=== PATIENT | female | born 1945 | race Caucasian/White ===

== ENCOUNTER 2024-05-17 14:04 | Outpatient (CLI) | payer MEDICARE, SELFPAY ==
--- OUTSIDE RECORDS SUMMARY | 2024-05-17 14:25 | XMS_ITS | Continuity of Care Document ---
Author Organization [facility] Address [address] [place] [address] Phone Care Team Providers Care Vacuum Tank Tender Name Role Phone Dino Hudson MD Unavailable Unavailable Allergies, Adverse Reactions, Alerts Substance Reaction Status Criticality Sulfa (Sulfonamide Antibiotics) Unknown(not reported) Active No Information Penicillins Unknown(not reported) Active No Inf ormation Medications Medication Instructions Dosage Effective Dates (start - stop) Status Comments famotidine 20 mg tablet - Ac tive amlodipine 10 mg tablet - Ac tive lisinopril 40 mg tablet - Ac tive atorvastatin 40 mg tablet - Active clopidogrel 75 mg tablet - A ctive sertraline 100 mg tablet - A ctive carvedilol 12.5 mg tablet - Active Procedures Procedure Date RADEX ELBW COMPL MINIMUM 3 VIEWS 2018 OFFICE/OUTPATIENT VISIT NEW Advance Directives Directive Yes / No Effective Date File Name Other Directive Yes N/A N/A WARNING:The information contained in this section is historical and is provided for information only and does not constitute a legal document or any assurance that the information is still accurate. Please verify the information with the stroud of the legal document before using it for clinical purposes. Encounters Encounter Description Practice Location Reason(s) For Visit Diagnoses Date Provider Providers Copied on Encounter OFFICE/OUTPAT IENT VISIT NEW [facility] , [address], [place], [address], [place] tel:[phone] [facility] Body mass index (BMI) 27.0-27.9, adultOlecranon bursitis of right elbow Dec-201 [address], [place], [place], [id number] . tel: [phone] Referring Provider: Adrian Garcia, [address], [place], [address] . tel:[phone] Family History Family Member Type Diagnosis Age At Onset Father Problem (finding) Mother Problem (finding) Son Problem (finding) Alive and well Immunizations Vaccine Date Status Comments Pneumo (2 yrs or older)(PPV) administered Source: Other Provider Payers Payer name Insurance type Covered constitution party ID Authorharish armenta(s) AARP Medicare Complete HMO-POS [id number] Social History Type Description Quantity Date Captured Comments Alcohol Use Details beer Caffeine Use Details Unknown Tobacco Use Status Current non-smoker 19 Smoking Status Never smoker Non-Smoking Tobacco Use Details : No Details Available : No Details Available Sex Female Vital Signs Date / Time: Height Weight BMI Pulse Rate Blood Pressure Temperature Respiratory Rate Body Surface Area Head Circumference Head Circ. Percentile Wt./Franco. Percentile BMI percentile Pulse Ox Inhaled Ox 4:13 PM 65.00 in 74.843 kg (165.00 lbs) 27.4 6 kg/m eter (2) 136/82 mm[Hg] Chief Complaint And Reason For Visit No Information Reason For Referral Reason For Referral No Information Plan Of Treatment Date Type Action Status Goal Lifestyle education regardin g diet completed Referral Ordered: RADEX ELBW COMPL MINIMUM 3 VIEWS RT ordered History Of Present Illness Encounter Date Complaint History Of Prese nt Illness No Information Functional Status Date Functional Assessmen t No Information Instructions Date Instruction Additional Infor mation Fall risk home exerc ise program handout provided Home safety checklis t for fall hazards provided Lifestyle education regarding di et Related to Body mass index (BMI) 27.0-27.9, adult Rest, ice and elevate. Related t o Olecranon bursitis of right elbow Discussed treatment options Rela bouchra to Olecranon bursitis of right elbow Call for increase in pain Relate d to Olecranon bursitis of right elbow Assessments Type Assessment Date assessment Body mass index (BMI) 27.0-27.9, adult assessment Olecranon bursitis of right elbo w Patient Care Teams Name Effective Dates (start - stop) Status Members No Information
--- OUTSIDE RECORDS SUMMARY | 2024-05-17 14:25 | XMS_ITS | Encounter Summary ---
Author Organization [facility] Address [address] [place] [address] Care Team Providers Care Customer Success Advocate Name Role Phone Adrian Martin MD Primary Care Provider [phone] Reason for Referral * Radiology Services (Routine) - Closed Specialty Diagnoses / Procedures Referred By Contac t Referred To Contact Diagnoses Neutropenia, unspecified type Procedures US ABDOMEN COMPLETE Alberto Gordon MD [address] [place] [address] Phone: tel: fax: [place] [address] Referral ID Status Reason Start Date Expiration Date V isits Requested Visits Authorized [id number] Closed STL CTS 05/17/2024 06/17/2025 1 1 STIGATOR UTILITY BILL COMPLAINTS Encounter Details Date Type Department Care Team (Late st Contact Info) Description 05/17/2024 1:00 PM INVESTIGATOR UTILITY BILL COMPLAINTS Office Visit [facility] [address] [facility] [address] [place] [address] Alberto Gordon MD [address] [place] [address] Chronic anemia (Primary Dx); Neutropenia, unspecified type Social History Tobacco Use Types Packs/Day Years Used Date Smoking Tobacco: Never Smokeless Tobacco: Never Alcohol Use Standard Drinks/Week Comments Not Currently 0 (1 standard drink = 0.6 oz pur e alcohol) Occasionally Comments Unknown Sex and Gender Information Value Date Recorded Sex Assigned at Not on file Legal Sex Female 1:46 PM CDT Gender Identity Not on file Sexual Orientation Not on file documented as of this encounter Last Filed Vital Signs Vital Sign Reading Time Taken Comments Blood Pressure 151/88 05/17/2024 1:25 PM INVESTIGATOR UTILITY BILL COMPLAINTS Pulse 81 05/17/2024 1:18 PM INVESTIGATOR UTILITY BILL COMPLAINTS Temperature 36.6 ??C (97.8 ??F) 05/17/2024 1:18 PM CS T Respiratory Rate 14 05/17/2024 1:18 PM INVESTIGATOR UTILITY BILL COMPLAINTS Oxygen Saturation 93% 05/17/2024 1:18 PM INVESTIGATOR UTILITY BILL COMPLAINTS Inhaled Oxygen Concentration - - Weight 58 kg (127 lb 12.8 oz) 05/17/2024 1:18 PM INVESTIGATOR UTILITY BILL COMPLAINTS Height 162.6 cm (5' 4 ) 05/17/2024 1:18 PM INVESTIGATOR UTILITY BILL COMPLAINTS Body Mass Index 21.94 05/17/2024 1:18 PM INVESTIGATOR UTILITY BILL COMPLAINTS documented in this encounter Plan of Treatment Upcoming Encounters Date Type Department Care Team (Late st Contact Info) Description 06/09/2024 4:30 PM INVESTIGATOR UTILITY BILL COMPLAINTS Telephone Check Up [facility] - [place] [address] [place] [address] [facility] [address] [place] [phone] Alberto Gordon MD [address] [facility] [address] [place] [address] Scheduled Orders Name Type Priority Associated Diagnoses Orde r Schedule CBC WITH DIFFERENTIAL Lab Stat Chronic anemia Expected: 05/17/2024, Expires: 05/17/2025 COMPREHENSIVE METABOLIC PANEL Lab Stat Chronic anemia Expected: 05/17/2024, Expires: 05/17/2025 FERRITIN Lab Routine Chronic anemia Expected: 05/17/2024, Expires: 05/17/2025 FLOW CYTOMETRY PANEL Lab Routine Neutropenia, unspecified type Expected: 05/17/2024, Expires: 05/17/2025 IRON, TIBC, AND PERCENT SATURATION Lab Routine Chronic anemia Expected: 05/17/2024, Expires: 05/17/2025 LACTATE DEHYDROGENASE Lab Routine Chronic anemia Expected: 05/17/2024, Expires: 05/17/2025 METHYLMALONIC ACID Lab Routine Chronic anemia Expected: 05/17/2024, Expires: 05/17/2025 TRANSFERRIN RECEPTOR TFR SOLUBLE Lab Routine Chronic anemia Expected: 05/17/2024, Expires: 05/17/2025 VITAMIN B12 AND FOLATE Lab Routine Chronic anemia Expected: 05/17/2024, Expires: 05/17/2025 US ABDOMEN COMPLETE Imaging Routine Neutropenia, unspecified type 1 Occurrences starting 05/17/2024 until 05/17/2025 documented as of this encounter Visit Diagnoses Diagnosis Chronic anemia- Primary Anemia, unspecified Neutropenia, unspecified type documented in this encounter Care Teams Customer Success Advocate Relationship Specialty Start Date End Date Adrian Martin MD [address] [place] [address] PCP - General Internal Medicine 08/05/18 documented as of this encounter
--- OUTSIDE RECORDS SUMMARY | 2024-05-17 14:25 | XMS_ITS | CONTINUITY OF CARE DOCUMENT ---
Author Name keon herbert Address Unknown Organization [facility] Address [address] [facility] [facility] [address] [place] [address] Phone [phone] Care Team Providers Care Teletray Operator Name Role Phone Jb Butts MD Unavailable Jb Butts MD Unavailable INSURANCE PROVIDERS Payer name Policy type / Coverage type [place] red constitution party ID [id number] MEDICARE COMPLETE HMO Other [id number]
--- OUTSIDE RECORDS SUMMARY | 2024-05-17 14:25 | XMS_ITS | Clinical Summary ---
Author Organization [facility] [address] [facility] Address [address] [facility] [place] [address] Care Team Providers Care Network Cabler Name Role Phone Adrian aMrtin MD Primary Care Provider [phone] Allergies Active Allergy Reactions Criticality Noted Date Comments Penicillins Itching,Rash,Swelling Low 10/23/2016 Sulfa (Sulfonamide Antibiotics) Itching,Swelling Low 10/23/2016 Medications amLODIPine (NORVASC) 10 mg tablet Take 1 Tablet by mouth daily. 04/25/2024 Active atorvastatin (LIPITOR) 40 mg tablet Take 1 Tablet by mouth daily. 04/25/2024 Active carvediloL (COREG) 12.5 mg tablet Take 1 Tablet by mouth 2 times daily. 05/02/2024 Active folic acid (FOLVITE) 1 mg tablet Take 1 Tablet by mouth daily. 03/15/2024 Active b complex-vitamin c-folic acid (DIALYVITE) 100-1 mg Tablet Take 1 Tablet by mouth daily. Active losartan (COZAAR) 100 mg tablet Take 1 Tablet by mouth daily. 03/15/2024 Active aspirin (ECOTRIN EC) 81 mg Tablet, Delayed Release (E.C.) Take 81 mg by mouth daily. Active traZODone (DESYREL) 150 mg tablet Take 150 mg by mouth daily at bedtime. 03/15/2024 Active sertraline (ZOLOFT) 100 mg tablet Take 1 Tablet by mouth daily. 04/25/2024 Active CALCIUM CARBONATE-VITAMI N D3 ORAL Take by mouth. Active MULTIVITAMIN ORAL Take by mouth. Active Active Problems No known active problems Encounters Date Type Department Care Team Description 05/17/2024 1:00 PM JUICE STANDARDIZER Office Visit [facility] and H[facility] - [place] [address] [place] [address] Alberto Gordon MD Chronic anemia (Primary Dx); Neutropenia, unspecified type from Last 3 Months Family History Medical History Relation Name Comments Parkinson's Disease Brother No Known Problems Child Diabetes Father Heart Disease Father No Known Problems Mother Relation Name Status Comments Brother Alive Child Alive Father Mother Social History Tobacco Use Types Packs/Day Years [...] on file Sexual Orientation Not on file Last Filed Vital Signs Vital Sign Reading Time Taken Comments Blood Pressure 151/88 05/17/2024 1:25 PM JUICE STANDARDIZER Pulse 81 05/17/2024 1:18 PM JUICE STANDARDIZER Temperature 36.6 ??C (97.8 ??F) 05/17/2024 1:18 PM CS T Respiratory Rate 14 05/17/2024 1:18 PM JUICE STANDARDIZER Oxygen Saturation 93% 05/17/2024 1:18 PM JUICE STANDARDIZER Inhaled Oxygen Concentration - - Weight 58 kg (127 lb 12.8 oz) 05/17/2024 1:18 PM JUICE STANDARDIZER Height 162.6 cm (5' 4 ) 05/17/2024 1:18 PM JUICE STANDARDIZER Body Mass Index 21.94 05/17/2024 1:18 PM JUICE STANDARDIZER Plan of Treatment Upcoming Encounters Date Type Department Care Team (Late st Contact Info) Description 06/09/2024 4:30 PM JUICE STANDARDIZER Telephone Check Up [facility] and [facility]ology - [place] [address] [place] [address] Alberto Gordon MD [address] [facility] [address] [place] [address] Health Maintenance Due Date Last Done Comments DTAP/TDAP/TD VACCINES (1 - Tdap) 1965 PNEUMOCOCCAL VACCINE 65+ YEARS (1 of 2 - PCV) 03/19/19 66 ZOSTER VACCINE (1 of 2) 1996 RSV VACCINE (60+ or ) (1 - 1-dose 75+ series) 2021 INFLUENZA VACCINE (#1) 2023 01/11/2018 [place] Prev entative Visit/Annual Wellness Visit 04/13/2024 OSTEOPOROSIS SCREENING Completed 07/25/2017 Insurance [facility] [address] [address] [facility] [address] [address] Care Teams Network Cabler Relationship Specialty Start Date End Date Adrian Martin MD [address] [place] [address] PCP - General Internal Medicine 08/05/18
[2024-05-17 14:33] LABS: Basophils Percent Auto 0.3 % (0.2-1.2); Eosinophils Absolute Auto 0.1 K/mm3 (0-0.3); Eosinophils Percent Auto 1.4 % (0-4.4); Hematocrit 34.8 % (37.0-47.0); Hemoglobin 11.3 g/dL (12.0-15.0); Immature Granulocyte Absolute 0.02 K/mm3 (0.00-0.031); Immature Granulocyte Percent A 0.6 % (0-0.5); Lymphocytes Absolute Auto 0.69 K/mm3 (0.9-3.2); Lymphocytes Percent Auto 19.8 % (18.3-44.2); Mean Corpuscular HGB Conc 32.5 g/dl (32-36); Mean Corpuscular Hemoglobin 28.8 pg (26-34); Mean Corpuscular Volume 88.8 fl (80-100); Mean Platelet Volume 9.8 fl (7.4-10.4); Monocytes Absolute Auto 0.2 K/mm3 (0.1-0.6); Monocytes Percent Auto 5.4 % (2.6-8.5); Neutrophils Absolute Auto 2.5 K/mm3 (1.3-6.7); Neutrophils Percent Auto 72.5 % (45.5-73.1); Platelet Count Result 108 k/mm3 (150-375); Red Blood Count 3.92 M/mm3 (4.2-5.4); Red Cell Distribution Width 16.2 % (11.5-14.5); White Blood Count 3.5 K/mm3 (4.5-10.0)
[2024-05-17 16:51] LABS: Alanine Aminotransferase 21 U/L (6-35); Albumin Level 3.8 g/dL (3.5-5.1); Alkaline Phosphatase 101 U/L (38-126); Anion Gap 9 mmol/L (4-12); Aspartate Amino Transferase 50 U/L (14-36); Bilirubin,Total 0.8 mg/dL (0.2-1.3); Blood Urea Nitrogen 15 mg/dL (7-17); Calcium 9.2 mg/dL (8.4-10.2); Carbon Dioxide 25 mmol/L (22-30); Chloride 103 mmol/L (98-107); Estimated Glomerular Filt Rate > 60; Glucose 101 mg/dL (65-110); Lactate Dehydrogenase 136 U/L (120-246); Potassium 4.6 mmol/L (3.4-5.0); Sodium 137 mmol/L (137-145)
[2024-05-17 17:19] LABS: Iron 63 ug/dL (37-170)
[2024-05-17 17:33] LABS: Percent Iron Saturation 21 % (20-50)
[2024-05-17 17:56] LABS: Folic Acid > 20.0 ng/mL (2.76->20)
[2024-05-20 12:17] LABS: Methylmalonic Acid 215 nmol/L (69-390)
== END 2024-05-17 14:05 | disposition home or self-care (01) ==
PROVIDERS: PCP Internal Medicine; Visit Provider Internal Medicine Hematology & Oncology
DX: D64.9 Anemia, unspecified (principal); D70.9 Neutropenia, unspecified
CPT/HCPCS: 36415; 80053; 82607; 82728; 82746; 83540; 83550; 83615; 83921; 84238; 85025; 88184

== ENCOUNTER 2024-06-22 09:04 | Outpatient (CLI) | payer MEDICARE, SELFPAY ==
--- NOTE | ~2024-06-22 | US_ITS ---
EXAM: ABDOMEN ULTRASOUND HISTORY: NEUTROPENIA COMPARISON: None FINDINGS: LIVER: The liver is unremarkable in echogenicity and size measuring 18cm in longitudinal dimension. The portal vein is patent, demonstrating hepatopedal flow. GALLBLADDER: Surgically absent. BILE DUCTS: Common bile duct measures 4.3mm. PANCREAS: Limited evaluation of the pancreas secondary to overlying bowel gas SPLEEN: The spleen is unremarkable in echogenicity and markedly increased in size measuring 19 cm in longitudinal dimension. RIGHT KIDNEY: 9.7 cm. In length. No hydronephrosis or bulky renal calculi. LEFT KIDNEY: 10.1cm in length. No hydronephrosis or renal calculi. VASCULATURE : The abdominal aorta is nonaneurysmal. The IVC is patent. OTHER: Trace intra-abdominal ascites, as well as small bilateral pleural effusions IMPRESSION: Evaluation of the pancreas is limited by overlying bowel gas. Significant enlargement of the spleen measuring 19 cm in longitudinal dimension. Trace ascites with small bilateral pleural effusions. Reviewed, dictated and finalized at location A. IMPRESSION: Evaluation of the pancreas is limited by overlying bowel gas. Significant enlargement of the spleen measuring 19 cm in longitudinal dimension . Trace ascites with small bilateral pleural effusions.
--- OUTSIDE RECORDS SUMMARY | 2024-06-22 09:43 | XMS_ITS | Patient Health Record ---
Author Organization [facility] Address [address] [facility] [address] [facility] [address] [place] [address] Care Team Providers Care Blower Insulator Name Role Phone Khadar Larson MD Primary Care Provider Unavailab le Allergies Allergen (clinical drug ingredient) Drug/Non Drug Allergy documented on EMR Reaction Allergy Type Onset Date Status Substance with sulfonamide structure and antibacterial mechanism of action (substance) Sulfa Antibiotics Unknown Drug Allergy Active Penicillin Unknown Drug Allergy Active Reason For Referral No Information Medications Medication SIG (Take, Route, Frequency, Duration) Notes Start Date End Date Status Losartan Potassium A ctive Carvedilol Active Sertraline HCl Activ e Meloxicam Active amLODIPine Besylate Active OTC/Vitamins Folic Acid, MVI, ASA, Calcium, Mg, Zinc, Docusate Sodium, Melatonin, Prevagen Active Atorvastatin Calcium Active traZODone HCl Active Social History Tobacco Use: Social History Observation Description Date Details (start date - stop date) Former Smoker NA - NA Tobacco Use/Smoking Question Answer Notes Are you a former smoker Section Notes: , lives alone, one so n, retired. Problems Problem Type SNOMED Code ICD Code Onset Dates Problem Status W/U Status Risk Notes Problem 223314271 History of colon polyps (Z86.010) Active confirmed She has had a colonoscopy with polyp removal in the last year by an outside provier with repeat recommended in 5 years. Report not available for review but will obtain. 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 She has been experiencing alternating constipation and loose stools for several years in which she can have up to 4 bowel movements a day or go 2-3 days without a bowel movement. She states that she has had to disimpact her stool before in the distant past. She does use Docusate sodium tablets once daily and has plans to start Metamucil. She was seen at [facility] in 09/2021 for dehydration and RLQ pain which her son states labs and CT scan of abdomen and pelvis were unremarkable however these reports are not available for review today but will obtain. Her son also mentions she has had a colonoscopy with polyp removal in the last year by an outside provier with repeat recommended in 5 years. She denies hematochezia, melena, weight loss or other alarm features and her physical exam was negative today. Differentials include IBS, food intolerance, medication intolerance, other functional bowel disorder, and others. Plan Of Treatment No Information Insurance Providers Payer Name Payer Address Payer Phone Subscriber Number Group Number Insured Name Patient Relationship to Insured Coverage Start Date Coverage End Date [employer] Medicare Gold Advantage [address] [place] [phone] [id number] Lauren Cummings Self - patient is the insured Medical (General) History Medical History History ICD Code Colon polyp Liver Disease Stroke Depression Hypertension Coronary Artery Disease/Stents Hyperlipidemia Surgical History Surgery Date(Month/Year) Colonoscopy (Outside Provider) 2021 Left Knee Replacement Stent Placement Hospitalization History Reason Date(Month/Year) Dehydration, RLQ pain: [facility], [place] 09/2021
--- OUTSIDE RECORDS SUMMARY | 2024-06-22 09:43 | XMS_ITS | Data Portability ---
Author Organization [facility], Main Office Address [address] [place] [address] Assessment No assessment recorded. Plan of Treatment Reminders Order Date Submit Date Provider Last Modified By Organization Details Last Modified Time Details Appointments Any 15 2024 03:00P M Roberto Gotti MD Not available Not available Not available Lab urinalysi s complete, reflex culture 2023 024 [facility] (Lab), [address] [place], [address], 10/27/2023 22:09:45 unlisted lab - CBC study 2023 024 [email or web address] [facility] (Lab), [address] [place], [address], 11/24/2023 08:38:31 CBC w/ auto diff 2023 024 [facility] (Lab), [address] [place], [address], 08/12/2023 20:19:03 CMP, serum or plasma 2023 024 [facility] (Lab), [address] [place], [address], 08/12/2023 21:52:10 urinalysi s, complete 2023 024 [facility] (Lab), [address] [place], [address], 08/12/2023 23:17:40 TSH, serum or plasma 2023 024 [facility] (Lab), [address] [place], [address], 08/12/2023 22:18:06 T3, free, serum or plasma 2023 024 [facility] (Lab), [address] [place], [address], 08/12/2023 22:17:00 T4, free, serum 2023 024 [facility] (Lab), [address] [place], [address], 08/12/2023 22:17:02 Referral gastroent erologist referral 2023 024 amena Duke MD, [address] [facility], [facility], [place], [address], 11/24/2023 08:38:42 Procedures colonosco py procedure (PROC) 2023 024 amena Duke MD, [address], [facility], [place], [address], 09/16/2023 08:11:48 upper endoscopy procedure (EGD) (PROC) 2023 024 amena Duke MD, [address], [facility], [place], [address], 09/30/2023 08:27:16 Surgeries None recorded. Imaging CT, abdomen + pelvis, w/wo contrast 2023 [email or web address] [place] [address] ([facility]), [address] [place], [address], 09/16/2023 09:52:51 Medication Orders ondansetr on 4 mg disintegr ating tablet 2023 024 [email or web address] [facility]/Pharmacy #[id number], [address], [place], [address], 05/20/2024 12:32:04 pantopraz ole 40 mg tablet,de layed release 2023 024 [email or web address] [facility]/Pharmacy #[id number], [address], [place], [address], 09/08/2023 09:28:07 gabapenti n 100 mg capsule 2023 024 KARTHIK [facility]/Pharmacy #[id number], [address], [place], [address], 04/20/2023 16:01:50 Patient TargetsNo targets recorded. Patient InstructionsNo instructions recorded. Reason for Referral Medical Engineer Referral for Abdominal pain Referring Physician: Roberto Gotti, Internal Medicine, Encounter Date: 10/27/2023 Results Created Date Observation Date Name Description Value Unit Range Abnormal Flag Note LastModifiedBy Organization Detail LastModifiedTime 03/31/2003/31/2023 COMPR EHENS DIMPLE METAB OLIC PANEL sodium 136 mmol/ L 137-14 5 low Not Available [facility] (Lab) [address] [place], [address], 03/31/2023 20:44:53 03/31/20 23 03/31/2023 COMPR EHENS DIMPLE METAB OLIC PANEL potassium 4.8 mmol/ L 3.5-5. 1 Not Available [facility] (Lab) [address] [place], [address], 03/31/2023 20:44:53 03/31/20 23 03/31/2023 COMPR EHENS DIMPLE METAB OLIC PANEL chloride 101 mmol/ L 98-107 Not Available [facility] (Lab) [address] [place], [address], 03/31/2023 20:44:53 03/31/20 23 03/31/2023 COMPR EHENS DIMPLE METAB OLIC PANEL carbon dioxide 29 mmol/ L 22-30 Not Available [facility] (Lab) [address] [place], [address], 03/31/2023 20:44:53 03/31/20 23 03/31/2023 COMPR EHENS DIMPLE METAB OLIC PANEL anion gap 10.8 mmol/ L 14-22 low Not Available [facility] (Lab) [address] [place], [address], 03/31/2023 20:44:53 03/31/20 23 03/31/2023 COMPR EHENS DIMPLE METAB OLIC PANEL glucose 97 mg/dL 70-99 Not Available [facility] (Lab) [address] [place], [address], 03/31/2023 20:44:53 03/31/20 23 03/31/2023 COMPR EHENS DIMPLE METAB OLIC PANEL BUN 30 mg/dL 8-19 high Not Available [facility] (Lab) [address] [place], [address], 03/31/2023 20:44:53 03/31/20 23 03/31/2023 COMPR EHENS DIMPLE METAB OLIC PANEL creatinine 0.65 mg/dL 0.66-1 .25 low Not Available [facility] (Lab) [address] [place], [address], 03/31/2023 20:44:53 03/31/20 23 03/31/2023 COMPR EHENS DIMPLE METAB OLIC PANEL GFR >60 Refer ence Range : [facility] GFR Healt hy Adult : >60 mL/mi n/1.7 3 m2 Chron ic Kidne y Disea se: 15-60 mL/mi n/1.7 3 m2 Kidne y Failu re: <15/m L/min /1.73 m2 www.n iddk. nih.g ov The MDRD study equat ion has not been valid ated in child julee <18 years of age; pregn ant women ; the elder ly >85 years of age; or in some racia l or ethni c subgr oups, such as Hispa nics. Outsi de the valid ated chiquita eters , estim ated GFR is less accur ate, requi ring clini alisha judgm ent on a case- by-ca se basis . Clini alisha inter preta tion for other races and ages must be made by the clini simran. The MDRD study equat ion has not been valid ated for the evalu ation of serum creat inine relat ed to nutri carl l statu s or medic ation usage . For perso ns <18 years of age, a pedia tric GFR calcu lator is avail able on the [facility] websi te: https ://itzel [place].o rg/pr ofess ional s/kdo qi/gf r_cal culat or Not Available [facility] (Lab) [address] [place], [address], 03/31/2023 20:44:53 03/31/20 23 03/31/2023 COMPR EHENS DIMPLE METAB OLIC PANEL alkaline phosphatase 59 U/L 38-126 Not Available [facility] (Lab) [address] [place], [address], 03/31/2023 20:44:53 03/31/20 23 03/31/2023 COMPR EHENS DIMPLE METAB OLIC PANEL alanine aminotransfe rase 38 U/L 0-35 high Not Available [facility] (Lab) [address] [place], [address], 03/31/2023 20:44:53 03/31/20 23 03/31/2023 COMPR EHENS DIMPLE METAB OLIC PANEL aspartate aminotransfe rase 47 U/L 15-37 high Not Available [facility] (Lab) [address] [place], [address], 03/31/2023 20:44:53 03/31/20 23 03/31/2023 COMPR EHENS DIMPLE METAB OLIC PANEL bilirubin, total 0.50 mg/dL 0.20-1 .30 Not Available [facility] (Lab) [address] [facility] [place], [address], 03/31/2023 20:44:53 03/31/20 23 03/31/2023 COMPR EHENS DIMPLE METAB OLIC PANEL calcium 9.3 mg/dL 8.4-10 .2 Not Available [facility] (Lab) [address] [place], [address], 03/31/2023 20:44:53 03/31/20 23 03/31/2023 COMPR EHENS DIMPLE METAB OLIC PANEL total protein 8.0 g/dL 6.3-8. 2 Not Available [facility] (Lab) [address] [place], [address], 03/31/2023 20:44:53 03/31/20 23 03/31/2023 COMPR EHENS DIMPLE METAB OLIC PANEL albumin 4.7 g/dL 3.0-4. 4 high Not Available [facility] (Lab) [address] [place], [address], 03/31/2023 20:44:53 03/31/20 23 03/31/2023 COMPR EHENS DIMPLE METAB OLIC PANEL globulin 3.3 g/dL 2.6-4. 2 Not Available [facility] (Lab) [address] [place], [address], 03/31/2023 20:44:53 03/31/20 23 03/31/2023 COMPR EHENS DIMPLE METAB OLIC PANEL A/G ratio 1.4 ratio 1.0-2. 0 Not Available [facility] (Lab) [address] [place], [address], 03/31/2023 20:44:53 03/31/20 23 03/31/2023 TSH thyroid-stim ulating hormone 1.700 uIU/m L 0.465- 4.680 Not Available [facility] (Lab) [address] [place], [address], 03/31/2023 21:03:32 03/31/20 23 04/01/2023 T4 FREE free T4 1.11 NG/dL 0.78-2 .19 Not Available [facility] (Lab) [address] [place], [address], 04/02/2023 00:49:36 03/31/20 23 04/01/2023 T3 FREE free T3 3.9 pg/mL 2.77-5 .27 Not Available [facility] (Lab) [address] [place], [address], 04/02/2023 00:49:39 08/12/19 24 08/12/2023 URINA LYSIS COMPL ETE, IRIS color DARK-Y ELLOW Not Available [facility] (Lab) [address] [place], [address], 08/12/2023 20:09:32 08/12/19 24 08/12/2023 URINA LYSIS COMPL ETE, IRIS appear EXTRA TURBID abnormal Not Available [facility] (Lab) [address] [place], [address], 08/12/2023 20:09:32 08/12/19 24 08/12/2023 URINA LYSIS COMPL ETE, IRIS specific gravity 1.019 1.001- 1.030 Not Available [facility] (Lab) [address] [place], [address], 08/12/2023 20:09:32 08/12/19 24 08/12/2023 URINA LYSIS COMPL ETE, IRIS pH 5.5 pH_un its 5.0-9. 0 Not Available [facility] (Lab) [address] [place], [address], 08/12/2023 20:09:32 08/12/19 24 08/12/2023 URINA LYSIS COMPL ETE, IRIS leukocytes 250 robel/u L negati ve- abnormal Not Available [facility] (Lab) [address] [place], [address], 08/12/2023 20:09:32 08/12/19 24 08/12/2023 URINA LYSIS COMPL ETE, IRIS nitrite 2+ negati ve- abnormal Not Available [facility] (Lab) [address] [place], [address], 08/12/2023 20:09:32 08/12/19 24 08/12/2023 URINA LYSIS COMPL ETE, IRIS protein 50 mg/dL negati ve- abnormal Not Available [facility] (Lab) [address] [place], [address], 08/12/2023 20:09:32 08/12/19 24 08/12/2023 URINA LYSIS COMPL ETE, IRIS glucose NORMAL mg/dL normal - Not Available [facility] (Lab) [address] [place], [address], 08/12/2023 20:09:32 08/12/19 24 08/12/2023 URINA LYSIS COMPL ETE, IRIS ketones NEGATI VE mg/dL negati ve- Not Available [facility] (Lab) [address] [place], [address], 08/12/2023 20:09:32 08/12/19 24 08/12/2023 URINA LYSIS COMPL ETE, IRIS urobilinogen NORMAL mg/dL normal - Not Available [facility] (Lab) [address] [place], [address], 08/12/2023 20:09:32 08/12/19 24 08/12/2023 URINA LYSIS COMPL ETE, IRIS bilirubin NEGATI VE mg/dL negati ve- Not Available [facility] (Lab) [address] [place], [address], 08/12/2023 20:09:32 08/12/19 24 08/12/2023 URINA LYSIS COMPL ETE, IRIS blood 0.1 mg/dL negati ve- abnormal Not Available [facility] (Lab) [address] [place], [address], 08/12/2023 20:09:32 08/12/19 24 08/12/2023 URINA LYSIS COMPL ETE, IRIS color DARK-Y ELLOW Not Available [facility] (Lab) [address] [place], [address], 08/12/2023 20:10:14 08/12/19 24 08/12/2023 URINA LYSIS COMPL ETE, IRIS appear EXTRA TURBID abnormal Not Available [facility] (Lab) [address] [place], [address], 08/12/2023 20:10:14 08/12/19 24 08/12/2023 URINA LYSIS COMPL ETE, IRIS specific gravity 1.019 1.001- 1.030 Not Available [facility] (Lab) [address] [place], [address], 08/12/2023 20:10:14 08/12/19 24 08/12/2023 URINA LYSIS COMPL ETE, IRIS pH 5.5 pH_un its 5.0-9. 0 Not Available [facility] (Lab) [address] [place], [address], 08/12/2023 20:10:14 08/12/19 24 08/12/2023 URINA LYSIS COMPL ETE, IRIS leukocytes 250 robel/u L negati ve- abnormal Not Available [facility] (Lab) [address] [place], [address], 08/12/2023 20:10:14 08/12/19 24 08/12/2023 URINA LYSIS COMPL ETE, IRIS nitrite 2+ negati ve- abnormal Not Available [facility] (Lab) [address] [place], [address], 08/12/2023 20:10:14 08/12/19 24 08/12/2023 URINA LYSIS COMPL ETE, IRIS protein 50 mg/dL negati ve- abnormal Not Available [facility] (Lab) [address] [place], [address], 08/12/2023 20:10:14 08/12/19 24 08/12/2023 URINA LYSIS COMPL ETE, IRIS glucose NORMAL mg/dL normal - Not Available [facility] (Lab) [address] [place], [address], 08/12/2023 20:10:14 08/12/19 24 08/12/2023 URINA LYSIS COMPL ETE, IRIS ketones NEGATI VE mg/dL negati ve- Not Available [facility] (Lab) [address] [place], [address], 08/12/2023 20:10:14 08/12/19 24 08/12/2023 URINA LYSIS COMPL ETE, IRIS urobilinogen NORMAL mg/dL normal - Not Available [facility] (Lab) [address] [place], [address], 08/12/2023 20:10:14 08/12/19 24 08/12/2023 URINA LYSIS COMPL ETE, IRIS bilirubin NEGATI VE mg/dL negati ve- Not Available [facility] (Lab) [address] [place], [address], 08/12/2023 20:10:14 08/12/19 24 08/12/2023 URINA LYSIS COMPL ETE, IRIS blood 0.1 mg/dL negati ve- abnormal Not Available [facility] (Lab) [address] [place], [address], 08/12/2023 20:10:14 08/12/19 24 08/12/2023 URINA LYSIS COMPL ETE, IRIS white blood cells 21-40 /i??h pfi?? 0-8 abnormal Not Available [facility] (Lab) [address] [place], [address], 08/12/2023 20:10:14 08/12/19 24 08/12/2023 URINA LYSIS COMPL ETE, IRIS red blood cells NONE /i??h pfi?? 0-4 Not Available [facility] (Lab) [address] [place], [address], 08/12/2023 20:10:14 08/12/19 24 08/12/2023 URINA LYSIS COMPL ETE, IRIS bacteria MODERA TE abnormal Not Available [facility] (Lab) [address] [facility] [place], [address], 08/12/2023 20:10:14 08/12/19 24 08/12/2023 URINA LYSIS COMPL ETE, IRIS mucous OCCASI ONAL /i??l pfi?? abnormal Not Available [facility] (Lab) [address] [facility] [place], [address], 08/12/2023 20:10:14 08/12/19 24 08/12/2023 URINA LYSIS COMPL ETE, IRIS squamous epithelial OCCASI ONAL /i??l pfi?? abnormal Not Available [facility] (Lab) [address] [place], [address], 08/12/2023 20:10:14 08/12/19 24 08/12/2023 URINA LYSIS COMPL ETE, IRIS hyaline cast PACKED FIELD /i??l pfi?? none seen- abnormal Not Available [facility] (Lab) [address] [place], [address], 08/12/2023 20:10:14 08/12/19 24 08/12/2023 CBC/C OMPLE TE BLD COUNT W/DIF F white blood cells 6.3 x10'3 /uL 4.2-10 .8 Not Available [facility] (Lab) [address] [place], [address], 08/12/2023 20:19:03 08/12/19 24 08/12/2023 CBC/C OMPLE TE BLD COUNT W/DIF F red blood cells 4.06 x10'6 /uL 3.80-5 .20 Not Available [facility] (Lab) [address] [place], [address], 08/12/2023 20:19:03 08/12/19 24 08/12/2023 CBC/C OMPLE TE BLD COUNT W/DIF F hemoglobin 12.0 g/dL 12.0-1 5.6 Not Available [facility] (Lab) [address] [place], [address], 08/12/2023 20:19:03 08/12/19 24 08/12/2023 CBC/C OMPLE TE BLD COUNT W/DIF F hematocrit 35.4 % 35.7-4 5.7 low Not Available [facility] (Lab) [address] [place], [address], 08/12/2023 20:19:03 08/12/19 24 08/12/2023 CBC/C OMPLE TE BLD COUNT W/DIF F mean red cell volume 87.2 fL 82.0-9 9.0 Not Available [facility] (Lab) [address] [place], [address], 08/12/2023 20:19:03 08/12/19 24 08/12/2023 CBC/C OMPLE TE BLD COUNT W/DIF F mean red cell hemoglobin 29.6 pg 27.0-3 3.0 Not Available [facility] (Lab) [address] [place], [address], 08/12/2023 20:19:03 08/12/19 24 08/12/2023 CBC/C OMPLE TE BLD COUNT W/DIF F mean RBC HGB concentratio n 33.9 g/dL 31.0-3 6.0 Not Available [facility] (Lab) [address] [place], [address], 08/12/2023 20:19:03 08/12/19 24 08/12/2023 CBC/C OMPLE TE BLD COUNT W/DIF F red cell distribution width 16.9 % 11.8-1 5.5 high Not Available [facility] (Lab) [address] [place], [address], 08/12/2023 20:19:03 08/12/19 24 08/12/2023 CBC/C OMPLE TE BLD COUNT W/DIF F platelets 132 x10'3 /uL 150-40 0 low Not Available [facility] (Lab) [address] [place], [address], 08/12/2023 20:19:03 08/12/19 24 08/12/2023 CBC/C OMPLE TE BLD COUNT W/DIF F neutrophils 77.2 % 39.0-7 2.0 high Not Available [facility] (Lab) [address] [place], [address], 08/12/2023 20:19:03 08/12/19 24 08/12/2023 CBC/C OMPLE TE BLD COUNT W/DIF F lymphocytes 14.9 % 16.0-4 7.0 low Not Available [facility] (Lab) [address] [place], [address], 08/12/2023 20:19:03 08/12/19 24 08/12/2023 CBC/C OMPLE TE BLD COUNT W/DIF F monocytes 6.6 % 5.0-12 .0 Not Available [facility] (Lab) [address] [place], [address], 08/12/2023 20:19:03 08/12/19 24 08/12/2023 CBC/C OMPLE TE BLD COUNT W/DIF F eosinophils 0.6 % 1.0-7. 0 low Not Available [facility] (Lab) [address] [place], [address], 08/12/2023 20:19:03 08/12/19 24 08/12/2023 CBC/C OMPLE TE BLD COUNT W/DIF F basophils 0.2 % 0.0-2. 0 Not Available [facility] (Lab) [address] [place], [address], 08/12/2023 20:19:03 08/12/19 24 08/12/2023 CBC/C OMPLE TE BLD COUNT W/DIF F immature granulocytes 0.5 % 0.00-0 .50 Not Available [facility] (Lab) [address] [place], [address], 08/12/2023 20:19:03 08/12/19 24 08/12/2023 CBC/C OMPLE TE BLD COUNT W/DIF F neutrophils, absolute count 4.83 x10'3 /uL 1.5-8. 0 Not Available [facility] (Lab) [address] [place], [address], 08/12/2023 20:19:03 08/12/19 24 08/12/2023 CBC/C OMPLE TE BLD COUNT W/DIF F lymphocytes, absolute count 0.93 x10'3 /uL 1.07-3 .43 low Not Available [facility] (Lab) [address] [place], [address], 08/12/2023 20:19:03 08/12/19 24 08/12/2023 CBC/C OMPLE TE BLD COUNT W/DIF F monocytes, absolute count 0.41 x10'3 /uL 0.29-0 .99 Not Available [facility] (Lab) [address] [place], [address], 08/12/2023 20:19:03 08/12/19 24 08/12/2023 CBC/C OMPLE TE BLD COUNT W/DIF F eosinophils, absolute count 0.04 x10'3 /uL 0.02-0 .53 Not Available [facility] (Lab) [address] [place], [address], 08/12/2023 20:19:03 08/12/19 24 08/12/2023 CBC/C OMPLE TE BLD COUNT W/DIF F basophils, absolute count 0.01 x10'3 /uL 0.01-0 .08 Not Available [facility] (Lab) [address] [place], [address], 08/12/2023 20:19:03 08/12/19 24 08/12/2023 CBC/C OMPLE TE BLD COUNT W/DIF F immature granulocytes ,absolute 0.03 x10'3 /uL 0.00-0 .05 Not Available [facility] (Lab) [address] [place], [address], 08/12/2023 20:19:03 08/12/19 24 08/12/2023 CBC/C OMPLE TE BLD COUNT W/DIF F nucleated red blood cells 0.0 % -0 Not Available [facility] (Lab) [address] [place], [address], 08/12/2023 20:19:03 08/12/19 24 08/12/2023 CBC/C OMPLE TE BLD COUNT W/DIF F NRBC# 0.00 x10'3 /uL Not Available [facility] (Lab) [address] [place], [address], 08/12/2023 20:19:03 08/12/19 24 08/12/2023 COMPR EHENS DIMPLE METAB OLIC PANEL sodium 137 mmol/ L 137-14 5 Not Available [facility] (Lab) [address] [place], [address], 08/12/2023 21:52:10 08/12/19 24 08/12/2023 COMPR EHENS DIMPLE METAB OLIC PANEL potassium 3.3 mmol/ L 3.5-5. 1 low Not Available [facility] (Lab) [address] [place], [address], 08/12/2023 21:52:10 08/12/19 24 08/12/2023 COMPR EHENS DIMPLE METAB OLIC PANEL chloride 106 mmol/ L 98-107 Not Available [facility] (Lab) [address] [place], [address], 08/12/2023 21:52:10 08/12/19 24 08/12/2023 COMPR EHENS DIMPLE METAB OLIC PANEL carbon dioxide 24 mmol/ L 22-30 Not Available [facility] (Lab) [address] [place], [address], 08/12/2023 21:52:10 08/12/19 24 08/12/2023 COMPR EHENS DIMPEL METAB OLIC PANEL anion gap 10.3 mmol/ L 14-22 low Not Available [facility] (Lab) [address] [place], [address], 08/12/2023 21:52:10 08/12/19 24 08/12/2023 COMPR EHENS DIMPLE METAB OLIC PANEL glucose 118 mg/dL 70-99 high Not Available [facility] (Lab) [address] [place], [address], 08/12/2023 21:52:10 08/12/19 24 08/12/2023 COMPR EHENS DIMPLE METAB OLIC PANEL BUN 22 mg/dL 8-19 high Not Available [facility] (Lab) [address] [place], [address], 08/12/2023 21:52:10 05/0108/12/2023 COMPR EHENS DIMPLE METAB OLIC PANEL creatinine 0.68 mg/dL 0.66-1 .25 Not Available [facility] (Lab) [address] [place], [address], 08/12/2023 21:52:10 08/12/19 24 08/12/2023 COMPR EHENS DIMPLE METAB OLIC PANEL GFR >60 Refer ence Range : [place] [facility] GFR Healt hy Adult : >60 mL/mi n/1.7 3 m2 Chron ic Kidne y Disea se: 15-60 mL/mi n/1.7 3 m2 Kidne y Failu re: <15/m L/min /1.73 m2 www.n iddk. nih.g ov The MDRD study equat ion has not been valid ated in child julee <18 years of age; pregn ant women ; the elder ly >85 years of age; or in some racia l or ethni c subgr oups, such as [facility] nics. Outsi de the valid ated chiquita eters , estim ated GFR is less accur ate, requi ring clini alisha judgm ent on a case- by-ca se basis . Clini alisha inter preta tion for other races and ages must be made by the clini simran. The MDRD study equat ion has not been valid ated for the evalu ation of serum creat inine relat ed to nutri carl l statu s or medic ation usage . For perso ns <18 years of age, a pedia tric GFR calcu lator is avail able on the [facility] websi te: https ://itzel w.kid milad.o rg/pr ofess ional s/kdo qi/gf r_cal culat or Not Available [facility] (Lab) [address] [place], [address], 08/12/2023 21:52:10 08/12/19 24 08/12/2023 COMPR EHENS DIMPLE METAB OLIC PANEL alkaline phosphatase 64 U/L 38-126 Not Available [facility] (Lab) [address] [place], [address], 08/12/2023 21:52:10 08/12/19 24 08/12/2023 COMPR EHENS DIMPLE METAB OLIC PANEL alanine aminotransfe rase 24 U/L 0-35 Not Available [facility] (Lab) [address] [place], [address], 08/12/2023 21:52:10 08/12/19 24 08/12/2023 COMPR EHENS DIMPLE METAB OLIC PANEL aspartate aminotransfe rase 51 U/L 15-37 high Not Available [facility] (Lab) [address] [place], [address], 08/12/2023 21:52:10 08/12/19 24 08/12/2023 COMPR EHENS DIMPLE METAB OLIC PANEL bilirubin, total 0.80 mg/dL 0.20-1 .30 Not Available [facility] (Lab) [address] [place], [address], 08/12/2023 21:52:10 08/12/19 24 08/12/2023 COMPR EHENS DIMPLE METAB OLIC PANEL calcium 8.8 mg/dL 8.4-10 .2 Not Available [facility] (Lab) [address] [place], [address], 08/12/2023 21:52:10 08/12/19 24 08/12/2023 COMPR EHENS DIMPLE METAB OLIC PANEL total protein 6.5 g/dL 6.3-8. 2 Not Available [facility] (Lab) [address] [place], [address], 08/12/2023 21:52:10 08/12/19 24 08/12/2023 COMPR EHENS DIMPLE METAB OLIC PANEL albumin 3.5 g/dL 3.0-4. 4 Not Available [facility] (Lab) [address] [place], [address], 08/12/2023 21:52:10 08/12/19 24 08/12/2023 COMPR EHENS DIMPLE METAB OLIC PANEL globulin 3.0 g/dL 2.6-4. 2 Not Available [facility] (Lab) [address] [place], [address], 08/12/2023 21:52:10 08/12/19 24 08/12/2023 COMPR EHENS DIMPLE METAB OLIC PANEL A/G ratio 1.2 ratio 1.0-2. 0 Not Available [facility] (Lab) [address] [place], [address], 08/12/2023 21:52:10 08/12/19 24 08/12/2023 T3 FREE free T3 4.0 pg/mL 2.77-5 .27 Not Available [facility] (Lab) [address] [place], [address], 08/12/2023 22:17:00 08/12/19 24 08/12/2023 T4 FREE free T4 1.62 NG/dL 0.78-2 .19 Not Available [facility] (Lab) [address] [place], [address], 08/12/2023 22:17:02 08/12/19 24 08/12/2023 TSH thyroid-stim ulating hormone 2.300 uIU/m L 0.465- 4.680 Not Available [facility] (Lab) [address] [place], [address], 08/12/2023 22:18:06 08/12/19 24 08/12/2023 CULTU RE URINE urc ===== ===== ===== ===== ===== ===== ===== ===== ===== ===== ===== ===== ===== ===== ===== ===== ===== ===== ===== ===== ===== ===== ===== ===== Speci men NO.: [id number] Exam Statu s: Final Proce dure: CULTU RE URINE ===== ===== ===== ===== ===== ===== ===== ===== ===== ===== ===== ===== ===== ===== ===== ===== ===== ===== ===== ===== ===== ===== ===== ===== Iso/R esult : 01 Pseud omona s aerug inosa Antim icrob ic/Do se STEPHANI Syste stephani Urine __ ___ ___ Ampic illin >16 SUPP RESS TS ED R ESUL Aztre onam >16 R R Cefot axime 16 SUPP RESS TS ED R ESUL Cipro floxa paresh <=0.2 5 S S Ertap enem >1 SUPP RESS TS ED R ESUL Genta micin 4 SSUP [place] [id number] Oxida se React ion P Amp/S ulbac davis >16/8 SUPP RESS Ceftr iaxon e >2 SUPP RESS Cefta zidim e 4 S S Cefta zidim e/K Clav 2 SUPP RESS Cefot axime /K Clavu >4 SUPP RESS Cefaz bela >16 SUPP RESS Cefep pilo 4 S S Cefur oxime >16 SUPP RESS Levof loxac in 1 S S Merop enem <=1 S S Pip/T azo <=8 S S Trime th/[place] lfa >2/38 SUPP RESS Tetra cycli ne >8 SUPP RESS Tobra mycin <=2 S S TS ED R ESUL TS ED R ESUL TS ED R ESUL TS ED R ESUL TS ED R ESUL TS ED R ESUL TS ED R ESUL TS ED R ESUL Cefta zidim e/Mick concetta <=8 S S Nitro furan toin >64 SUPP RESS TS ED R ESUL Not Available [facility] (Lab) [address] [place], [address], 08/14/2023 08:46:57 10/27/19 24 10/27/2023 URINA LYSIS COMPL ETE/I RIS W/RFX color YELLOW Not Available [facility] (Lab) [address] [place], [address], 10/27/2023 20:07:20 10/27/19 24 10/27/2023 URINA LYSIS COMPL ETE/I RIS W/RFX appear TURBID abnormal Not Available [facility] (Lab) [address] [place], [address], 10/27/2023 20:07:20 10/27/19 24 10/27/2023 URINA LYSIS COMPL ETE/I RIS W/RFX specific gravity 1.013 1.001- 1.030 Not Available [facility] (Lab) [address] [place], [address], 10/27/2023 20:07:20 10/27/19 24 10/27/2023 URINA LYSIS COMPL ETE/I RIS W/RFX pH 8.0 pH_un its 5.0-9. 0 Not Available [facility] (Lab) [address] [place], [address], 10/27/2023 20:07:20 10/27/19 24 10/27/2023 URINA LYSIS COMPL ETE/I RIS W/RFX leukocytes NEGATI VE robel/u L negati ve- Not Available [facility] (Lab) [address] [place], [address], 10/27/2023 20:07:20 10/27/19 24 10/27/2023 URINA LYSIS COMPL ETE/I RIS W/RFX nitrite NEGATI VE negati ve- Not Available [facility] (Lab) [address] [place], [address], 10/27/2023 20:07:20 10/27/19 24 10/27/2023 URINA LYSIS COMPL ETE/I RIS W/RFX protein 10 mg/dL negati ve- abnormal Not Available [facility] (Lab) [address] [place], [address], 10/27/2023 20:07:20 10/27/19 24 10/27/2023 URINA LYSIS COMPL ETE/I RIS W/RFX glucose NORMAL mg/dL normal - Not Available [facility] (Lab) [address] [facility] [place], [address], 10/27/2023 20:07:20 10/27/19 24 10/27/2023 URINA LYSIS COMPL ETE/I RIS W/RFX ketones NEGATI VE mg/dL negati ve- Not Available [facility] (Lab) [address] [place], [address], 10/27/2023 20:07:20 10/27/19 24 10/27/2023 URINA LYSIS COMPL ETE/I RIS W/RFX urobilinogen NORMAL mg/dL normal - Not Available [facility] (Lab) [address] [place], [address], 10/27/2023 20:07:20 10/27/19 24 10/27/2023 URINA LYSIS COMPL ETE/I RIS W/RFX bilirubin NEGATI VE mg/dL negati ve- Not Available [facility] (Lab) [address] [place], [address], 10/27/2023 20:07:20 10/27/19 24 10/27/2023 URINA LYSIS COMPL ETE/I RIS W/RFX blood NEGATI VE mg/dL negati ve- Not Available [facility] (Lab) [address] [place], [address], 10/27/2023 20:07:20 10/27/19 24 10/27/2023 URINA LYSIS COMPL ETE/I RIS W/RFX white blood cells 0-8 /i??h pfi?? 0-8 Not Available [facility] (Lab) [address] [place], [address], 10/27/2023 20:07:20 10/27/19 24 10/27/2023 URINA LYSIS COMPL ETE/I RIS W/RFX red blood cells 0-4 /i??h pfi?? 0-4 Not Available [facility] (Lab) [address] [place], [address], 10/27/2023 20:07:20 10/27/19 24 10/27/2023 URINA LYSIS COMPL ETE/I RIS W/RFX bacteria OCCASI ONAL abnormal Not Available [facility] (Lab) [address] [place], [address], 10/27/2023 20:07:20 10/27/19 24 10/27/2023 URINA LYSIS COMPL ETE/I RIS W/RFX mucous OCCASI ONAL /i??l pfi?? abnormal Not Available [facility] (Lab) [address] [place], [address], 10/27/2023 20:07:20 10/27/19 24 10/27/2023 URINA LYSIS COMPL ETE/I RIS W/RFX squamous epithelial MODERA TE /i??l pfi?? abnormal Not Available [facility] (Lab) [address] [place], [address], 10/27/2023 20:07:20 10/27/19 24 10/27/2023 URINA LYSIS COMPL ETE/I RIS W/RFX hyaline cast FEW /i??l pfi?? none seen- abnormal Not Available [facility] (Lab) [address] [place], [address], 10/27/2023 20:07:20 04/29/19 25 04/29/2024 CBC W/O DIFFE RENTI AL white blood cells 1.5 x10'3 /uL 4.2-10 .8 critical low Not Available [facility] (Lab) [address] [place], [address], 04/29/2024 18:07:26 04/29/19 25 04/29/2024 CBC W/O DIFFE RENTI AL red blood cells 3.50 x10'6 /uL 3.80-5 .20 low Not Available [facility] (Lab) [address] [place], [address], 04/29/2024 18:07:26 04/29/19 25 04/29/2024 CBC W/O DIFFE RENTI AL hemoglobin 10.3 g/dL 12.0-1 5.6 low Not Available [facility] (Lab) [address] [place], [address], 04/29/2024 18:07:26 04/29/19 25 04/29/2024 CBC W/O DIFFE RENTI AL hematocrit 31.0 % 35.7-4 5.7 low Not Available [facility] (Lab) [address] [place], [address], 04/29/2024 18:07:26 04/29/19 25 04/29/2024 CBC W/O DIFFE RENTI AL mean red cell volume 88.6 fL 82.0-9 9.0 Not Available [facility] (Lab) [address] [place], [address], 04/29/2024 18:07:26 04/29/19 25 04/29/2024 CBC W/O DIFFE RENTI AL mean red cell hemoglobin 29.4 pg 27.0-3 3.0 Not Available [facility] (Lab) [address] [place], [address], 04/29/2024 18:07:26 04/29/19 25 04/29/2024 CBC W/O DIFFE RENTI AL mean RBC HGB concentratio n 33.2 g/dL 31.0-3 6.0 Not Available [facility] (Lab) [address] [place], [address], 04/29/2024 18:07:26 04/29/19 25 04/29/2024 CBC W/O DIFFE RENTI AL red cell distribution width 16.8 % 11.8-1 5.5 high Not Available [facility] (Lab) [address] [place], [address], 04/29/2024 18:07:26 04/29/19 25 04/29/2024 CBC W/O DIFFE RENTI AL platelets 90 x10'3 /uL 150-40 0 low Not Available [facility] (Lab) [address] [place], [address], 04/29/2024 18:07:26 04/29/19 25 04/29/2024 CBC W/O DIFFE RENTI AL mean platelet volume 11.7 fL 9.0-12 .4 Not Available [facility] (Lab) [address] [place], [address], 04/29/2024 18:07:26 05/02/19 25 05/02/2024 URINA LYSIS COMPL ETE/I RIS W/RFX color YELLOW Not Available [facility] (Lab) [address] [place], [address], 05/02/2024 16:53:40 05/02/19 25 05/02/2024 URINA LYSIS COMPL ETE/I RIS W/RFX appear EXTRA TURBID abnormal Not Available [facility] (Lab) [address] [place], [address], 05/02/2024 16:53:40 05/02/19 25 05/02/2024 URINA LYSIS COMPL ETE/I RIS W/RFX specific gravity 1.015 1.001- 1.030 Not Available [facility] (Lab) [address] [place], [address], 05/02/2024 16:53:40 05/02/19 25 05/02/2024 URINA LYSIS COMPL ETE/I RIS W/RFX pH 5.5 pH_un its 5.0-9. 0 Not Available [facility] (Lab) [address] [place], [address], 05/02/2024 16:53:40 05/02/19 25 05/02/2024 URINA LYSIS COMPL ETE/I RIS W/RFX leukocytes NEGATI VE robel/u L negati ve- Not Available [facility] (Lab) [address] [place], [address], 05/02/2024 16:53:40 05/02/19 25 05/02/2024 URINA LYSIS COMPL ETE/I RIS W/RFX nitrite NEGATI VE negati ve- Not Available [facility] (Lab) [address] [place], [address], 05/02/2024 16:53:40 05/02/19 25 05/02/2024 URINA LYSIS COMPL ETE/I RIS W/RFX protein 20 mg/dL negati ve- abnormal Not Available [facility] (Lab) [address] [place], [address], 05/02/2024 16:53:40 05/02/19 25 05/02/2024 URINA LYSIS COMPL ETE/I RIS W/RFX glucose NORMAL mg/dL normal - Not Available [facility] (Lab) [address] [place], [address], 05/02/2024 16:53:40 05/02/19 25 05/02/2024 URINA LYSIS COMPL ETE/I RIS W/RFX ketones NEGATI VE mg/dL negati ve- Not Available [facility] (Lab) [address] [place], [address], 05/02/2024 16:53:40 05/02/19 25 05/02/2024 URINA LYSIS COMPL ETE/I RIS W/RFX urobilinogen NORMAL mg/dL normal - Not Available [facility] (Lab) [address] [place], [address], 05/02/2024 16:53:40 05/02/19 25 05/02/2024 URINA LYSIS COMPL ETE/I RIS W/RFX bilirubin NEGATI VE mg/dL negati ve- Not Available [facility] (Lab) [address] [place], [address], 05/02/2024 16:53:40 05/02/19 25 05/02/2024 URINA LYSIS COMPL ETE/I RIS W/RFX blood NEGATI VE mg/dL negati ve- Not Available [facility] (Lab) [address] [place], [address], 05/02/2024 16:53:40 05/02/19 25 05/02/2024 URINA LYSIS COMPL ETE/I RIS W/RFX white blood cells 0-8 /i??h pfi?? 0-8 Not Available [facility] (Lab) [address] [place], [address], 05/02/2024 16:53:40 05/02/19 25 05/02/2024 URINA LYSIS COMPL ETE/I RIS W/RFX red blood cells 0-4 /i??h pfi?? 0-4 Not Available [facility] (Lab) [address] [place], [address], 05/02/2024 16:53:40 05/02/19 25 05/02/2024 URINA LYSIS COMPL ETE/I RIS W/RFX bacteria PACKED FIELD abnormal Not Available [facility] (Lab) [address] [place], [address], 05/02/2024 16:53:40 05/02/19 25 05/02/2024 URINA LYSIS COMPL ETE/I RIS W/RFX mucous OCCASI ONAL /i??l pfi?? abnormal Not Available [facility] (Lab) [address] [place], [address], 05/02/2024 16:53:40 05/02/19 25 05/02/2024 URINA LYSIS COMPL ETE/I RIS W/RFX squamous epithelial OCCASI ONAL /i??l pfi?? abnormal Not Available [facility] (Lab) [address] [place], [address], 05/02/2024 16:53:40 Result Notes None recorded. Problems Name Problem SNOMED Code Status Onset Date Resolution Date Notes Provider Name and Address Organization Details Recorded Time Chronic hepatitis C 281863200 Active 2020 Not Available [facility] 3 16:21:43 Constipati on 59602818 Active 2020 Not Available [facility] 3 16:21:43 Insomnia 435187764 Active 2020 Not Available [facility] 3 16:21:43 Adult health examinatio n Active 2020 Not Available [facility] 3 16:21:43 History of cerebrovas cular accident 689831846 Active 2020 Not Available [facility] 3 16:21:43 Depressive disorder 39108145 Active 2020 Not Available [facility] 3 16:21:44 Osteoarthr itis 130444330 Active 2020 Not Available [facility] 3 16:21:44 Cough 15256287 Completed 202208/21/2022 Adelina feldman, RMA null, [facility] 3 12:36:55 Hyperlipid emia 94736447 Active 2020 Not Available [facility] 3 16:21:44 Essential hypertensi on 52422514 Active 2020 Not Available [facility] 3 16:21:44 Overactive urinary bladder 063498042 Active 2020 Not Available [facility] 3 16:21:44 Mammograph y abnormal 578575491 Active 2022 Not Available [facility] 3 16:21:43 Coronary arterioscl erosis 28388726 Active 2022 Not Available [facility] 3 16:21:44 Fatigue 08640891 Active 2022 Not Available [facility] 3 16:21:44 Acute urinary tract infection 521064792 Active 2022 Not Available [facility] 3 16:21:44 Viral hepatitis C 88929009 Active 2022 Not Available [facility] 3 16:21:44 Hypothyroi dism 90656328 Active 2022 Not Available [facility] 3 16:21:44 Edema of lower extremity 889173511 Active 2022 Not Available [facility] 3 16:21:43 Urinary symptoms 433214078 Active 2022 Not Available [facility] 3 16:21:43 Neuropathy 142419589 Active 2023 Roberto Gotti MD [address], [place], [address] , [facility] 4 16:01:07 Nausea and vomiting 96513658 Active 2023 Roberto Gotti MD [address], [address], [place], [address] , [facility] 4 15:09:20 Abnormal weight loss 982134967 Active 2023 Roberto Gotti MD [address], [address], [place], [address] , [facility] 4 15:09:48 Abdominal pain 34002955 Active 2023 Roberto Gotti MD [address], [address], [place], [address] , [facility] 4 14:37:49 Pancytopen ia 216697097 Active 2023 Roberto Gotti MD [address], [address], [place], [address] , [facility] 4 14:38:50 Urinary tract infectious disease 95390423 Active 2023 Marcie Purcell MA null, [facility] 4 17:02:18 Anemia 835321918 Active 2024 RACHEL Naqvi null, [facility] 5 09:35:38 White blood cell count outside reference range 972783268 Active 2024 Angelika Coley LPN null, [facility] 5 09:46:33 Problem Notes None recorded. Medical Equipment None Reported. Allergies Allergen ID Allergen Name Allergen Category Reaction Reaction Severity Criticality Documentation Date Start Date Code Code System Note Provider Name and Address Organization Details Recorded Time 51384 Substance with sulfonami de structure and antibacte rial mechanism of action (substanc e) medicatio n Not available Not available Not available 06/11/2022 92693 8003 SNOMED Not Available [facility] 3 23:32:11 18546 Product containin g penicilli n (product) medicatio n Not available Not available Not available 06/11/2022 32869 8001 SNOMED Not Available [facility] 3 23:32:11 Medications Name Sig Start Date Stop Date Status Note LastModified by Organization Details LastModified Time losartan 50 mg tablet TAKE 1 TABLET BY MOUTH EVERY DAY 11/27 completed Not Available Not Available Not Available atorvasta tin 40 mg tablet TAKE 1 TABLET BY MOUTH EVERY DAY 2024 active [facility]O 10/27/23 05/10/24 ok to rf x 1 Not Available Not Available Not Available promethaz ine-DM 6.25 mg-15 mg/5 mL oral syrup TAKE 5 TO 10ML BY MOUTH EVERY 6 HOURS NEEDED FOR 5 DAY(S) 04/23 completed Not Available Not Available Not Available oxybutyni n chloride ER 15 mg tablet,ex tended release 24 hr TAKE 1 TABLET BY MOUTH EVERY DAY active Not Available Not Available No t Available carvedilo l 12.5 mg tablet TAKE 1 TABLET BY MOUTH TWICE A DAY 2024 active Not Available Not Available Not Avai lable clarithro mycin 500 mg tablet TAKE 1 TABLET BY MOUTH TWICE A DAY FOR 7 DAYS 04/23 completed Not Available Not Available Not Available sertralin e 100 mg tablet TAKE 1 TABLET BY MOUTH EVERY DAY 2024 active POLO 10/27/23 05/10/24 ok to rf x 1 Not Available Not Available Not Available metronida zole 500 mg tablet TAKE 1 TABLET BY MOUTH EVERY 12 HOURS FOR 7 DAYS 04/23 completed Not Available Not Available Not Available Macrobid 100 mg capsule Take 1 capsule twice a day by oral route for 5 days. 05/20 completed per 03/30/24 patient case / ds Not Available Not Available Not Available meloxicam 7.5 mg tablet TAKE 1 TABLET BY MOUTH EVERY DAY 08/11 completed Not Available Not Available Not Available [place] Thyroid 15 mg tablet Take 1 tablet every day by oral route. 2023 active Currentl y not taking Not Available Not Available Not Available losartan 100 mg-hydroc hlorothia zide 25 mg tablet TAKE 1 TABLET BY MOUTH EVERY DAY 08/12 completed changed to Losartan w/o HCTZ 08/13/23 Not Available Not Available Not Available dicyclomi ne 20 mg tablet TAKE 1 TABLET BY MOUTH 4 TIMES A DAY NEEDED FOR 7 DAYS 04/23 completed Not Available Not Available Not Available amlodipin e 10 mg tablet TAKE 1 TABLET BY MOUTH EVERY DAY 2024 active POLO 10/27/23 05/10/24 ok to rf x 1 Not Available Not Available Not Available levothyro xine 50 mcg tablet TAKE 1 TABLET BY MOUTH EVERY DAY 03/31 completed Not Available Not Available Not Available pantopraz ole 40 mg tablet,de layed release TAKE 1 TABLET BY MOUTH EVERY MORNING ON EMPTY STOMACH 2024 active POLO 05/20/24 NOV 09/15/24 ok to rf Not Available Not Available Not Available trazodone 150 mg tablet Take 1 tablet as needed by oral route at bedtime for 90 days. 2024 active Not Available Not Available Not Avai lable folic acid 1 mg tablet TAKE 1 TABLET BY MOUTH EVERY DAY 2023 active POLO 10/27/23 NOV 05/10/24 ok to rf Not Available Not Available Not Available gabapenti n 100 mg capsule Take 1 capsule twice a day by oral route for 90 days. 2023 active POLO 10/27/23 ok to rf Not Available Not Available Not Available methylpre dnisolone 4 mg tablets in a dose pack TAKE 6 TABLETS ON DAY 1 DIRECTED ON PACKAGE AND DECREASE BY 1 TAB EACH DAY FOR A TOTAL OF 6 DAYS 04/23 completed Not Available Not Available Not Available Cipro 250 mg tablet Take 1 tablet twice a day by oral route for 5 days. 11/05 completed Not Available Not Available Not Available lisinopri l 40 mg tablet TAKE 1 TABLET BY MOUTH EVERY DAY 12/10 completed STOPPED and changed to Losartan Not Available Not Available Not Available ondansetr on 4 mg disintegr ating tablet LET 1 TABLET DISSOLVE BY MOUTH EVERY 6 HOURS NEEDED 05/20 completed Not Available Not Available Not Available losartan 100 mg tablet TAKE 1 TABLET BY MOUTH EVERY DAY 2024 active Not Available Not Available Not Avai lable Low Dose Aspirin 81 mg tablet,de layed release Take 1 tablet every day by oral route. 2020 active Not Available Not Available Not Avai lable Stool Softener 04/23 completed Not Available Not Available Not Available Vitamin D3 2020 active Not Available Not Available Not Avai lable multivita min 2020 active Not Available Not Available Not Avai lable melatonin 10 mg capsule Take by oral route. 04/23 completed Not Available Not Available Not Available Calcium 600-D3 Plus (mag-zinc ) 2020 active Not Available Not Available Not Avai lable Gemtesa 75 mg tablet TAKE 1 TABLET BY MOUTH EVERY DAY 08/21 completed Not Available Not Available Not Available Vitals Date Recorded Body height Body temperature Heart rate Oxygen saturation Oxygen saturation in Arterial blood by Pulse oximetry Systolic blood pressure Diastolic blood pressure Provider Name and Address Organization Details Last Updated DateTime 4 162.56 cm 97.3 [degF] 65 /min 97 % 97 % 122 mm[Hg] 70 mm[Hg] Tracey [facility] [employer] [facility] [employer] [facility] 4 15:24:32 Date Recorded Body height Body mass index (BMI) Body weight Body temperature Heart rate Oxygen saturation Oxygen saturation in Arterial blood by Pulse oximetry Systolic blood pressure Diastolic blood pressure Provider Name and Address Organization Details Last Updated DateTime 4 162.56 cm 27.7 kg/m2 18316.1 7 g 98.4 [degF] 78 /min 96 % 96 % 120 mm[Hg] 70 mm[Hg] Perla Shen [facility] [employer] [facility] [employer] [facility] 4 14:47:42 Date Recorded Body height Body temperature Heart rate Oxygen saturation Oxygen saturation in Arterial blood by Pulse oximetry Systolic blood pressure Diastolic blood pressure Provider Name and Address Organization Details Last Updated DateTime 4 162.56 cm 97 [degF] 67 /min 93 % 93 % 120 mm[Hg] 66 mm[Hg] Perla Shen [facility] [employer] [facility] [employer] [facility] 4 15:39:53 Date Recorded Body height Body temperature Heart rate Oxygen saturation Oxygen saturation in Arterial blood by Pulse oximetry Systolic blood pressure Diastolic blood pressure Provider Name and Address Organization Details Last Updated DateTime 4 162.56 cm 96.9 [degF] 89 /min 96 % 96 % 110 mm[Hg] 70 mm[Hg] Adelina jarquin [facility] [employer] [facility] [employer] [facility] 4 14:17:35 Date Recorded Body height Body temperature Body mass index (BMI) Body weight Heart rate Oxygen saturation Oxygen saturation in Arterial blood by Pulse oximetry Systolic blood pressure Diastolic blood pressure Provider Name and Address Organization Details Last Updated DateTime 5 162.56 cm 97.2 [degF] 21.8 kg/m2 14324.2 3 g 85 /min 96 % 96 % 144 mm[Hg] 70 mm[Hg] RACHEL Guevara [facility] [employer] 5 12:24:08 Social History Question Answer Notes LastModified by Organizat ion Details LastModified Time Tobacco Smoking Status Former Smoker Not Available [facility] 06/11/2022 23:28:38 Do You Have An Advance Directive? No [id number] Information not available 06/11/2022 What Is Your Level Of Alcohol Consumption? Moderate MIGRATION.82241 [id number] Information not available 06/11/2022 Are You Blind Or Do You Have Difficulty Seeing? No MIGRATION.86180 14593 Information not available 06/11/2022 What Is Your Level Of Caffeine Consumption? Moderate MIGRATION.07186 88884 Information not available 06/11/2022 In The 14 Days Before Symptom Onset, Have You Had Close Contact With A Laboratory-confi rmed COVID-19 While That Case Was Ill? No MIGRATION.64086 [id number] Information not available 06/11/2022 In The 14 Days Before Symptom Onset, Have You Had Close Contact With A Person Who Is Under Investigation For COVID-19 While That Person Was Ill? No MIGRATION.78401 92981 Information not available 06/11/2022 Are You Deaf Or Do You Have Serious Difficulty Hearing? No MIGRATION.23098 04612 Information not available 06/11/2022 What Type Of Diet Are You Following? REGULAR MIGRATION.74635 [id number] Information not available 06/11/2022 Which Illicit Or Recreational Drugs Have You Used? Marijuana MIGRATION.22130 64205 Information not available 06/11/2022 What Is The Highest Grade Or Level Of School You Have Completed Or The Highest Degree You Have Received? [id number] MIGRATION.03615 37920 Information not available 06/11/2022 Have There Been Any Changes To Your Family Or Social Situation? No MIGRATION.44688 28930 Information not available 06/11/2022 What Is The Fluoride Status Of Your Home? Unknown MIGRATION.06360 84531 Information not available 06/11/2022 When Did You Quit Smoking? 17+yearssincelkamala barroso MIGRATION.99495 02089 Information not available 06/11/2022 Are There Any Guns Present In Your Home? No MIGRATION.03612 07929 Information not available 06/11/2022 Do You Use Insect Repellent Routinely? No MIGRATION.01069 55625 Information not available 06/11/2022 Where Do You Live? [place]House MIGRATION.81935 48700 Information not available 06/11/2022 Do You Have A Medical Power Of Button Puncher? Yes MIGRATION.30287 [id number] Information not available 06/11/2022 What Was The Date Of Your Most Recent Tobacco Screening? 11/08/2020 MIGRATION.40663 06907 Information not available 06/11/2022 Do You Have Any Pets? No MIGRATION.60251 34785 Information not available 06/11/2022 What Is Your Relationship Status? MIGRATION.35526 18347 Information not available 06/11/2022 Do You Use Your Seat Belt Or Car Seat Routinely? Yes MIGRATION.40026 90590 Information not available 06/11/2022 Do You Have Smoke And Carbon Monoxide Detectors In Your Home? Yes MIGRATION.37853 12657 Information not available 06/11/2022 Are You Passively Exposed To Smoke? No MIGRATION.93355 11959 Information not available 06/11/2022 Are There Any Smokers In Your House? No MIGRATION.50344 02015 Information not available 06/11/2022 Do You Feel Stressed (tense, Restless, Nervous, Or Anxious, Or Unable To Sleep At Night)? [id number] MIGRATION.66340 78355 Information not available 06/11/2022 Do You Use Any Illicit Or Recreational Drugs? Yes MIGRATION.15844 25806 Information not available 06/11/2022 Do You Use Sunscreen Routinely? No MIGRATION.89869 99218 Information not available 06/11/2022 Have You Recently Traveled Abroad? No MIGRATION.16101 56325 Information not available 06/11/2022 Do You Have Any Dietary Restrictions? No MIGRATION.07523 03780 Information not available 06/11/2022 Do You Or Have You Ever Used Any Other Forms Of Tobacco Or Nicotine? No MIGRATION.13481 39297 Information not available 06/11/2022 Sex: Unknown Functional Status Question Answer Note LastModified by Organizat ion Details LastModified Time Do you have difficulty walking or climbing stairs? Yes MIGRATION.[id number] 026 Information not available 06/11/2022 Do you have transportation difficulties? Yes MIGRATION.[id number] 026 Information not available 06/11/2022 Are you able to walk? YESASSIST MIGRATION.[id number] 026 Information not available 06/11/2022 Do you have difficulty doing errands alone? Yes MIGRATION.1718251 026 Information not available 06/11/2022 Are you able to care for yourself? Yes MIGRATION.[id number] 026 Information not available 06/11/2022 Do you have difficulty dressing or bathing? No MIGRATION.2222752 026 Information not available 06/11/2022 What is your exercise level? None MIGRATION.[id number] 026 Information not available 06/11/2022 Mental Status Question Answer Note LastModified by Organizat ion Details LastModified Time Do you have difficulty concentrating, remembering or making decisions? Yes [id number] Information not available 06/11/2022 Family History Nothing Reported. Medical History No medical history recorded. Gynecological HistoryNo gynecological history recorded. Obstetrics History GPAL:G 0 P 0 0 0 0 Immunizations Vaccine Type Date Status Note Provider Nam e and Address Organization Details Recorded Time COVID-19, mRNA, LNP-S, PF, 30 mcg/0.3 mL dose 07/30/2020 completed Not Available [facility] 3 23:32:09 COVID-19, mRNA, LNP-S, PF, 30 mcg/0.3 mL dose 06/28/2020 completed Not Available [facility] 3 23:32:09 Past Encounters Encounter ID Performer Location Encounter Start Date Encounter Closed Date Diagnosis/Indication Diagnosis SNOMED-CT Code Diagnosis ICD10 Code Diagnosis Note [id number] [facility] [address] [place] [address] 11/08/2020 00:00:00 11/08/2020 16:39:07 [id number] [facility] Internal Med [facility] [address] [place] [address] 12/10/2020 00:00:00 12/10/2020 16:35:44 [id number] [facility] [address] [address] 04/23/2022 00:00:00 04/23/2022 15:51:18 [id number] Roberto Gotti MD [facility] Internal Med [facility] [address] [facility] [place] [address] 08/21/2022 12:27:20 08/21/2022 13:02:45 Essential hypertension 06422921 I10 on meds Constipation 48339319 K5 9.00 better Chronic hepatitis C 1283 65504 B18.2 Overactive urinary bladder 894711357 N32.81 change to oxybutynin Depressive disorder 3548 9007 F32.9 under control Hyperlipidemia 81922944 E78.5 labs Osteoarthritis 847979385 M19.90 on meds History of cerebrovascular accident 073104756 Z86.73 using cane Insomnia 873868820 G47.0 0 trazodone helps Coronary arteriosclerosis 71858568 I25.10 no symptoms Adult [facility] th examination 878638726 Z00.00 Colonoscop y 01/02Pneumo vax not sure ( said had all kinds of shots )Mammogram - 3Dex a- 3cov id- Mammography abnormal 168 386753 R92.8 ultra sound was nl Fatigue 15168297 R53.83 [id number] Roberto [facility] MD [facility] Internal Med [id number] [facility] [place] [address] 10/02/2022 16:12:38 10/02/2022 16:36:32 Fatigue 30090887 R53.83 she needs to sleep at night and not sleep during the day timeget all the labs, has been ordered many times Constipation 26793168 K5 9.00 stool softner and miralax [id number] Roberto Gotti MD [facility] Internal Med [facility] [address] [facility] [place] [address] 10/16/2022 10:38:42 10/16/2022 11:20:55 Viral hepatitis C 70929045 B19.20 needs treatment Hypothyroidism 52364334 E03.9 start meds [id number] Roberto [facility] MD [facility] Internal Med [address] [facility] [place] [place] [address] 11/27/2022 11:12:20 11/27/2022 11:51:19 Edema of lower extremity 066851662 R60.0 stop amlodipine ^ LOSARATNco mpression socks [id number] Roberto Gotti MD [facility] Internal Med [address] [facility] [place] [address] 12/17/2022 16:11:47 12/18/2022 10:25:27 Urinary symptoms 370592901 R39.9 dipstick noted [id number] Roberto Gotti MD [facility] Internal Med [address] [facility] [place] [address] 01/01/2023 11:09:06 01/01/2023 12:05:24 Essential hypertension 77578245 I10 under control Constipation 65951021 K5 9.00 better Chronic hepatitis C 1283 87850 B18.2 no treatment rec by GI Overactive urinary bladder 998297813 N32.81 oxybutynin HELPS Depressive disorder 3548 9007 F32.9 under control Hyperlipidemia 04890046 E78.5 labs Osteoarthritis 873012695 M19.90 on meds History of cerebrovascular accident 599360227 Z86.73 using cane/ WHE[employer] Insomnia 154050259 G47.0 0 trazodone helps Coronary arteriosclerosis 46981295 I25.10 no symptoms Adult heal th examination 722384784 Z00.00 Colonoscop y 01/02Pneumo vax not sure ( said had all kinds of shots )Mammogram - 3Dex a- 3cov id- Mammography abnormal 168 724896 R92.8 ultra sound was nl, need f/u Hypothyroidism 45618360 E03.9 change meds [id number] Roberto Gotti MD [facility] Internal Med [address] [facility] [place] [address] 03/31/2023 15:58:30 03/31/2023 17:37:22 Essential hypertension 50760218 I10 under control Constipation 70871998 K5 9.00 better Chronic hepatitis C 1283 29637 B18.2 no treatment rec by GI Overactive urinary bladder 492459381 N32.81 oxybutynin HELPS Depressive disorder 3548 9007 F32.9 under control Hyperlipidemia 75101291 E78.5 labs Osteoarthritis 942910562 M19.90 on meds History of cerebrovascular accident 351098900 Z86.73 using cane/ WHEEL CHA[employer] Insomnia 872427782 G47.0 0 trazodone helps Coronary arteriosclerosis 98801215 I25.10 no symptoms Adult heal th examination 031437004 Z00.00 Colonoscop y 01/02Pneumo vax not sure ( said had all kinds of shots )Mammogram - 3Dex a- 3cov id- 2022- CVSFLU- [facility] Hypothyroidism 15290783 E03.9 discussed with son, confused and meds and was still giving levothyrox ine, will again change to armour thyroid [id number] Roberto Gotti MD [facility] Internal [address] [place] [address] 04/20/2023 15:17:10 04/20/2023 16:04:23 Neuropathy 048903696 G62.9 [id number] Roberto Gotti MD [facility] Internal [address] [address] 08/12/2023 14:41:46 08/12/2023 15:37:09 Hypothyroidism 79174355 E03.9 Nausea and vomiting 1693 1999 R11.2 gastritis ? ulcerstop drinking beeravoid NSAIDS Abnormal weight loss 267 463470 R63.4 [id number] Roberto Gotti MD [facility] Internal [address] [address] 09/02/2023 15:33:48 09/02/2023 16:17:40 Essential hypertension 36292825 I10 under control Constipation 91130786 K5 9.00 Chronic hepatitis C 1283 38858 B18.2 no treatment rec by GI Overactive urinary bladder 415760004 N32.81 oxybutynin HELPS Depressive disorder 3548 9007 F32.9 under control Hyperlipidemia 26798846 E78.5 stable Osteoarthritis 761297657 M19.90 on meds History of cerebrovascular accident 019926469 Z86.73 using cane/ WHEEL [employer] Insomnia 088936402 G47.0 0 trazodone helps Coronary arteriosclerosis 52573691 I25.10 no symptoms Adult heal th examination 616329545 Z00.00 Colonoscop y- 01/02Pneumo vax not sure ( said had all kinds of shots )Mammogram - 3Dex a- 3cov id- 2022- CVSFLU- [facility] Hypothyroidism 21605079 E03.9 on meds Abnormal weight loss 267 177949 R63.4 needs more w/u Nausea and vomiting 1693 1999 R11.2 [id number] Roberto Gotti MD [facility] Internal Med [address] [facility] [place] [address] 10/27/2023 14:03:35 10/27/2023 15:02:29 Abdominal pain 46200520 R10.9 getting better, hosp rec to see GI as well and pt asking Acute urin tony tract infection 173932496 N39.0 treated, still has symptoms, check ua Pancytopenia 450770209 D 61.818 repeat cbc in a month [id number] Roberto Gotti MD [facility] Internal Med [address] [facility] [place] [address] 05/20/2024 12:16:06 05/20/2024 13:10:16 Essential hypertension 16335031 I10 under control Chronic hepatitis C 1283 33065 B18.2 no treatment rec by GI Overactive urinary bladder 971343327 N32.81 does not want meds Depressive disorder 3548 9007 F32.9 under control Hyperlipidemia 54596984 E78.5 stable Osteoarthritis 957744500 M19.90 on meds History of cerebrovascular accident 186300995 Z86.73 using cane/ WHEEL CHAIR Insomnia 450500745 G47.0 0 trazodone helps Coronary arteriosclerosis 39517166 I25.10 no symptoms Adult heal th examination 905062409 Z00.00 Colonoscop y- 01/02Pneumo vax not sure ( said had all kinds of shots )Mammogram - 07/2022, 02/2023 rtDexa- 3cov id- 2022- CVSFLU- 2023 [facility] Hypothyroidism 36789615 E03.9 to take meds daily Abnormal weight loss 267 620461 R63.4 needs more w/u, seeing hematology Pancytopenia 908246878 D 61.818 seeing hematology Health Concerns Section Related Observation LastModified by Organization Detai ls LastModified Time None Recorded Concern Status LastModified by Organization Details LastModified Time None Recorded Advance Directives Directive N: Payers Encounter Date Sequence Insurance Name Policy Number Policy Ghotra Covered Member ID Ghotra Member ID Guarantor Name 04/20/2023 1 [facility] (MEDICARE REPLACEMENT/A DVANTAGE - HMO) [id number] [place] [id number] [facility] [address] 08/12/2023 1 [facility] (MEDICARE REPLACEMENT/A DVANTAGE - HMO) [id number] [id number] [facility] [address] 09/02/2023 1 [facility] (MEDICARE REPLACEMENT/A DVANTAGE - HMO) [id number] [facility] [id number] [facility] [address] 10/27/2023 1 [facility] (MEDICARE REPLACEMENT/A DVANTAGE - HMO) [id number] Lauren [address] [place] [id number] [facility] [address] 05/20/2024 1 [facility] (MEDICARE REPLACEMENT/A DVANTAGE - HMO) [id number] [facility] [id number] [facility] [address] Notes Date Note Type Note Provider Name and Address Organization Details Recorded Time 4 text/html Pt is here for tingling and numbness in her hands and feetno pain in the neck or backno fever Roberto Gotti MD [address], [place], [address], [facility] 04/20/2023 16:03:35 4 text/html Has been gagging and throwing up, Has lost her appetite.Feels like she has never really bounced back from having COVID back in May. Has been sleeping a lot, Not getting up when company comes over like she used toHas lost 30lbs since Mar.She has not been taking her Thyroid meds months ago.Gave son a print out og her medications, He will me when he gets home for anything she may need refilledno abd painno change in bmno urine complaints she still drinks 2-3 beers a dayLFT were high Roberto Gotti MD [address], [place], [address], [facility] 08/12/2023 15:16:52 4 text/html Patient is here today for her 4 month follow upHere today with her son, States that she fell this morning. the floor where it transitions to the other room and a lip going to tile she states that the only thing that hurt is when her son was getting her up she states that her ribs hurt. She has been nauseated, does not think she has vomited has been laying in bed all dayShe has lost 30 lbs since mar.appetite is poor. She drinks Ensure a couple times a day. She will also drink smoothies that her son make for her. Appetite has not been the same since COVID back in May C/o right knee pain No known injury, and also left hand.Has done therapy on that knee before in the past that made it worse. CAD- s/p stent in 2019, not seeing cardiology, on asa, no symptoms, [facility] and labs 10/03Meds- Atorvastatin 40mg dailyHTN- on meds and under controlMeds- Carvedilol 12.5mg BID, Losartan 100mg/HCTZ 25mg dailyCVA in 2016, right hemiparesis and speech problems, made good improvements, using walker all the times.Depression- on Med and is mood is better,Meds- Sertraline 100mg dailyInsomnia- on trazodone and helps Hypothyroidism- started on levothyroxine, can not tolerate due to confusion since taking it, TSH was high, it was changed to [place] thyroidMeds- [place] Thyroid 15mg daily, Osteoarthritis- on meloxicam and it helpsConstipation - otc helpsNeck pain- has arthritisOveractive bladder- using depend, gemtesa was too expensive,Meds- Oxybutynin ER 15 MG QDH/o hep c- seen GI, no treatment was recommended Roberto Gotti MD [address] [facility], [facility] [address], [place], [address], [place] [facility] 09/02/2023 16:16:31 4 text/html Pt is here today for a hospital follow upRecord reviewed and discussed with the pt and sonShe went to [facility] and was [facility] for abdominal pain.Labs, CT chest- r/o PE (NEG)CT abd/pelvis showed moderate diverticulosisHere with her son who would like a UA done, states that her urine has a strong odor and is real dark.SHE WAS TREYED WITH UTIALSO HAD CONSTIPATIONshe has pancytopenia, mildpoor appetite Roberto Gotti MD [address], [place], [address], [email or web address] 10/27/2023 14:57:45 5 text/html Patient is here today for her 4 month follow upPT IS NOT FASTING ( [facility] )Brought in her meds to go through, She did not have her thyroid med and said she has not taken it for 1 week because she thought it was connected to her arm numbness.Right hand/arm going numb, has been going on for about 1 yrAlso has been loosing wt since having COVID in 05/2023 CAD- s/p stent in 2019, not seeing cardiology, on asa, no symptoms, [facility] med[facility]- Atorvastatin 40mg dailyHTN- on meds and under controlMeds- Carvedilol 12.5mg BID, Losartan 100mg/HCTZ 25mg daily, Amlodipine 10 mg qdCVA in 2016, right hemiparesis and speech problems, made good improvements, using walker all the times.Depression- under controlMeds- Sertraline 100mg dailyInsomnia- on trazodone and helps Hypothyroidism- started on levothyroxine, can not tolerate due to confusion since taking it, TSH was high, it was changed to [place] thyroid . HAS NOT BEEN TAKINGMeds- [place] Thyroid 15mg daily, Osteoarthritis- on meloxicam and it helps (DOES NOT THINK SHE TAKES)Constipation - otc helpsNeck pain- has arthritisOveractive bladder- using depend, gemtesa was too expensive,Does not think shes takingMeds- was on Oxybutynin ER 15 MG QDH/o hep c- seen GI, no treatment was recommended Pancytopenia- seen on recent labs, going to see hematology Roberto Gotti MD [address], [place], [address], [email or web address] 05/20/2024 13:09:43 OBGyn Episode No OBEpisode recorded.
--- OUTSIDE RECORDS SUMMARY | 2024-06-22 09:43 | XMS_ITS | Clinical Summary ---
Author Organization [employer] [address] [facility] Address [address] [place] [address] Care Team Providers Care Tipple Worker Name Role Phone Adrian Martin MD Primary Care Provider [phone] Allergies Active Allergy Reactions Criticality Noted Date [...] Active MULTIVITAMIN ORAL Take by mouth. Active megestroL (MEGACE) 400 mg/10 mL (40 mg/mL) suspension Take 10 mL (400 mg) by mouth daily. 240 mL 1 05/17/2024 Active Active Problems No known active problems Encounters Date Type Department Care Team Description 06/01/2024 External Device Data ST[facility] ABSTRACTION Provider, Abstract 05/24/2024 External Device Data [facility] ABSTRACTION Provider, Abstract 05/24/2024 External Device Data [facility] ABSTRACTION Provider, Abstract 05/24/2024 External Device Data [facility] ABSTRACTION Provider, Abstract 05/17/2024 1:00 PM AFFIRMATIVE ACTION SPECIALIST Office Visit [facility]3] Oncology and Hematology [address] [place] [address] Alberto Gordon MD Chronic anemia (Primary Dx); [...] Comments Blood Pressure 151/88 05/17/2024 1:25 PM AFFIRMATIVE ACTION SPECIALIST Pulse 81 05/17/2024 1:18 PM AFFIRMATIVE ACTION SPECIALIST Temperature 36.6 C (97.8 F) 05/17/2024 1:18 PM AFFIRMATIVE ACTION SPECIALIST Respiratory Rate 14 05/17/2024 1:18 PM AFFIRMATIVE ACTION SPECIALIST Oxygen Saturation 93% 05/17/2024 1:18 PM AFFIRMATIVE ACTION SPECIALIST Inhaled Oxygen Concentration - - Weight 58 kg (127 lb 12.8 oz) 05/17/2024 1:18 PM AFFIRMATIVE ACTION SPECIALIST Height 162.6 cm (5' 4 ) 05/17/2024 1:18 PM AFFIRMATIVE ACTION SPECIALIST Body Mass Index 21.94 05/17/2024 1:18 PM AFFIRMATIVE ACTION SPECIALIST Plan of Treatment Upcoming Encounters Date Type Department Care Team (Late st Contact Info) Description 06/30/2024 4:00 PM CDT Telephone Check Up [facility]3] Oncology and Hematology [address] [place] [address] Alberto Gordon MD [address] [facility] [address] [place], [place] [address] Health Maintenance Due Date Last Done Comments DTAP/TDAP/TD VACCINES (1 - Tdap) 1964 PNEUMOCOCCAL VACCINE 50+ YEARS (1 of 2 - PCV) 03/19/19 66 ZOSTER VACCINE (1 of 2) 1996 RSV VACCINE (60+ or ) (1 - 1-dose 75+ series) 2021 INFLUENZA VACCINE (#1) 2023 01/11/2018 Medicare [place] ([place]) Prev entative Visit/Annual Wellness Visit 04/13/2024 OSTEOPOROSIS SCREENING Completed 07/25/2017 Insurance [facility] Address: [id number] [place] [address] [facility] Address: [address] [address] [place] [address] Care Teams Tipple Worker Relationship Specialty Start Date End Date Adrian Martin MD [address] [place] [address] PCP - General Internal Medicine 08/05/18
== END 2024-06-22 09:05 | disposition home or self-care (01) ==
PROVIDERS: PCP Internal Medicine; Visit Provider Internal Medicine Hematology & Oncology
DX: R16.1 Splenomegaly, not elsewhere classified (principal); D70.9 Neutropenia, unspecified
CPT/HCPCS: 76700

== ENCOUNTER 2024-08-02 02:14 | Day surgery (SDC) | payer MEDICARE, SELFPAY ==
--- NOTE | ~2024-08-02 | BM_ITS ---
EXAMINATION: CCL bone marrow asp w bx diag ORDER COMPLETED DATE: 08/03/2024 07:51 INDICATION: Pancytopenia TECHNIQUE: A time-out was performed to verify the patient's name, date of , and procedure to b e performed. The procedure including the risks and benefits was discussed with the patient. Risks dis cussed included bleeding, infection, nerve injury and allergic reaction. The patient understood the r isks and agreed to proceed. The skin overlying the right posterior iliac spine was prepped and draped in usual sterile fashion. Anesthetic was administered with 1% lidocaine subcutaneously. Moderate co nscious sedation was achieved with 100 mcg fentanyl IV. An 11 gauge needle was inserted into the righ t ilium with fluoroscopic guidance. Bone marrow was aspirated. An 8 gauge needle was then inserted in to the right ilium with fluoroscopic guidance. A core bone marrow biopsy was obtained. The needle was removed and the entry site was cleaned and dressed. There were no immediate complications. A total of 91 fluoroscopic images were recorded. Fluoroscopy exposure time was 0.1 minutes. Total DAP was 150 mGycm^2 FINDINGS: Real-time fluoroscopy demonstrates the biopsy needle tip overlying the right posterior amarilis c spine. IMPRESSION: 1. Successful fluoroscopic guided bone marrow aspiration. 2. Successful fluoroscopic guided bone marrow biopsy. Reviewed, dictated and finalized at location A.
--- OUTSIDE RECORDS SUMMARY | 2024-08-02 02:17 | XMS_ITS | Data Portability ---
Author Organization [facility] [employer], Main Office Address [address] [place] [address] Assessment No assessment recorded. Plan of Treatment Reminders Order Date Submit Date Provider Last Modified By Organization Details Last Modified Time Details Appointments Any 15 2024 03:00P M Roberto Gotti MD Not available Not available Not available Lab urinalysi s complete, reflex culture 2023 024 [facility] (Lab), [address] [place], [address], 10/27/2023 22:09:45 unlisted lab - CBC study 2023 024 [email or web address] [facility] (Lab), [address] [place], [address], 11/24/2023 08:38:31 CBC w/ auto diff 2023 024 [facility] (Lab), [address] [place], [address], 08/12/2023 20:19:03 CMP, serum or plasma 2023 024 [facility] (Lab), [address] [place], [address], 08/12/2023 21:52:10 urinalysi s, complete 2023 024 [facility] (Lab), [address] [place], [address], 08/12/2023 23:17:40 TSH, serum or plasma 2023 024 [facility] (Lab), [address] [place], [address], 08/12/2023 22:18:06 T3, free, serum or plasma 2023 024 [facility] (Lab), [address] [place], [address], 08/12/2023 22:17:00 T4, free, serum 2023 024 [facility] (Lab), [address] [place], [address], 08/12/2023 22:17:02 Referral gastroent erologist referral 2023 024 amena Duke MD, [address] [facility], [facility], [place], [address], 11/24/2023 08:38:42 Procedures colonosco py procedure (PROC) 2023 024 amena Duke MD, [address], [facility], [place], [address], 09/16/2023 08:11:48 upper endoscopy procedure (EGD) (PROC) 2023 024 amena Duke MD, [address], [facility], [place], [address], 09/30/2023 08:27:16 Surgeries None recorded. Imaging CT, abdomen + pelvis, w/wo contrast 2023 [email or web address] [place] [address] ([facility]), [address] [place], [address], 09/16/2023 09:52:51 Medication Orders ondansetr on 4 mg disintegr ating tablet 2023 024 [email or web address] [facility]/Pharmacy #[id number], [address], [place], [address], 05/20/2024 12:32:04 pantopraz ole 40 mg tablet,de layed release 2023 024 [email or web address] [facility]/Pharmacy #[id number], [address], [place], [address], 09/08/2023 09:28:07 gabapenti n 100 mg capsule 2023 024 KARTHIK [facility]/Pharmacy #[id number], [address], [place], [address], 04/20/2023 16:01:50 Patient TargetsNo targets recorded. Patient InstructionsNo instructions recorded. 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 1 Not Available [facility] (Lab) [address] [place], [address], 03/31/2023 20:44:53 03/31/20 23 03/31/2023 COMPR EHENS DIMPLE METAB OLIC PANEL chloride 101 mmol/ L 98-107 Not Available [facility] (Lab) [address] [place], [address], 03/31/2023 20:44:53 03/31/20 23 03/31/2023 COMPR EHENS DIMPLE METAB OLIC PANEL carbon dioxide 29 mmol/ L 22-30 Not Available [facility] (Lab) [address] [place], [address], 03/31/2023 20:44:53 03/31/20 23 03/31/2023 COMPR EHENS DIMPLE METAB OLIC PANEL anion gap 10.8 mmol/ L 14-22 low Not Available [facility] (Lab) [address] [place], [address], 03/31/2023 20:44:53 03/31/20 23 03/31/2023 COMPR EHENS DIMPEL METAB OLIC PANEL glucose 97 mg/dL 70-99 Not Available [facility] (Lab) [address] [place], [address], 03/31/2023 20:44:53 03/31/20 23 03/31/2023 COMPR EHENS DIMPLE METAB OLIC PANEL BUN 30 mg/dL 8-19 high Not Available [facility] (Lab) [address] [place], [address], 03/31/2023 20:44:53 03/31/20 23 03/31/2023 COMPR EHENS DIMPLE METAB OLIC PANEL creatinine 0.65 mg/dL 0.66-1 .25 low Not Available [facility] (Lab) [address] [place], [address], 03/31/2023 20:44:53 03/31/20 23 03/31/2023 COMPR EHENS DIMPLE METAB OLIC PANEL GFR >60 Refer ence Range : Gilberts ge GFR Healt hy Adult : >60 [...] calcu lator is avail able on the [facility] websi te: https :[email or web address] rg/pr ofess ional s/kdo qi/gf r_cal culat or Not Available [facility] (Lab) [address] [place], [address], 03/31/2023 20:44:53 03/31/20 23 03/31/2023 COMPR EHENS DIMPLE METAB OLIC PANEL alkaline phosphatase 59 U/L 38-126 Not Available [facility] (Lab) [address] [place], [address], 03/31/2023 20:44:53 03/31/20 23 03/31/2023 COMPR EHENS DIMPLE METAB OLIC PANEL alanine aminotransfe rase 38 U/L 0-35 high Not Available [facility] (Lab) [address] [place], [address], 03/31/2023 20:44:53 03/31/20 23 03/31/2023 COMPR EHENS DIMPLE METAB OLIC PANEL aspartate aminotransfe rase 47 U/L 15-37 high Not Available [facility] (Lab) [address] [place], [address], 03/31/2023 20:44:53 03/31/20 23 03/31/2023 COMPR EHENS DIMPLE METAB OLIC PANEL bilirubin, total 0.50 mg/dL 0.20-1 .30 Not Available [facility] (Lab) [address] [facility] [place], [address], 03/31/2023 20:44:53 03/31/20 23 03/31/2023 COMPR EHENS DIMPLE METAB OLIC PANEL calcium 9.3 mg/dL 8.4-10 .2 Not Available [facility] (Lab) [address] [place], [address], 03/31/2023 20:44:53 03/31/20 23 03/31/2023 COMPR EHENS DIMPLE METAB OLIC PANEL total protein 8.0 g/dL 6.3-8. 2 Not Available [facility] (Lab) [address] [place], [address], 03/31/2023 20:44:53 03/31/20 23 03/31/2023 COMPR EHENS DIMPLE METAB OLIC PANEL albumin 4.7 g/dL 3.0-4. 4 high Not Available [facility] (Lab) [address] [place], [address], 03/31/2023 20:44:53 03/31/20 23 03/31/2023 COMPR EHENS DIMPLE METAB OLIC PANEL globulin 3.3 g/dL 2.6-4. 2 Not Available [facility] (Lab) [address] [place], [address], 03/31/2023 20:44:53 03/31/20 23 03/31/2023 COMPR EHENS DIMPLE METAB OLIC PANEL A/G ratio 1.4 ratio 1.0-2. 0 Not Available [facility] (Lab) [address] [place], [address], 03/31/2023 20:44:53 03/31/20 23 03/31/2023 TSH thyroid-stim ulating hormone 1.700 uIU/m L 0.465- 4.680 Not Available [facility] (Lab) [address] [place], [address], 03/31/2023 21:03:32 03/31/20 23 04/01/2023 T4 FREE free T4 1.11 NG/dL 0.78-2 .19 Not Available [facility] (Lab) [address] [place], [address], 04/02/2023 00:49:36 03/31/20 23 04/01/2023 T3 FREE free T3 3.9 pg/mL 2.77-5 .27 Not Available [facility] (Lab) [address] [place], [address], 04/02/2023 00:49:39 08/12/19 24 08/12/2023 URINA LYSIS COMPL ETE, IRIS color DARK-Y ELLOW Not Available [facility] (Lab) [address] [place], [address], 08/12/2023 20:09:32 08/12/19 24 08/12/2023 URINA LYSIS COMPL ETE, IRIS appear EXTRA TURBID abnormal Not Available [facility] (Lab) [address] [place], [address], 08/12/2023 20:09:32 08/12/19 24 08/12/2023 URINA LYSIS COMPL ETE, IRIS specific gravity 1.019 1.001- 1.030 Not Available [facility] (Lab) [address] [place], [address], 08/12/2023 20:09:32 08/12/19 24 08/12/2023 URINA LYSIS COMPL ETE, IRIS pH 5.5 pH_un its 5.0-9. 0 Not Available [facility] (Lab) [address] [place], [address], 08/12/2023 20:09:32 08/12/19 24 08/12/2023 URINA LYSIS COMPL ETE, IRIS leukocytes 250 robel/u L negati ve- abnormal Not Available [facility] (Lab) [address] [place], [address], 08/12/2023 20:09:32 08/12/19 24 08/12/2023 URINA LYSIS COMPL ETE, IRIS nitrite 2+ negati ve- abnormal Not Available [facility] (Lab) [address] [place], [address], 08/12/2023 20:09:32 08/12/19 24 08/12/2023 URINA LYSIS COMPL ETE, IRIS protein 50 mg/dL negati ve- abnormal Not Available [facility] (Lab) [address] [place], [address], 08/12/2023 20:09:32 08/12/19 24 08/12/2023 URINA LYSIS COMPL ETE, IRIS glucose NORMAL mg/dL normal - Not Available [facility] (Lab) [address] [place], [address], 08/12/2023 20:09:32 08/12/19 24 08/12/2023 URINA LYSIS COMPL ETE, IRIS ketones NEGATI VE mg/dL negati ve- Not Available [facility] (Lab) [address] [place], [address], 08/12/2023 20:09:32 08/12/19 24 08/12/2023 URINA LYSIS COMPL ETE, IRIS urobilinogen NORMAL mg/dL normal - Not Available [facility] (Lab) [address] [place], [address], 08/12/2023 20:09:32 08/12/19 24 08/12/2023 URINA LYSIS COMPL ETE, IRIS bilirubin NEGATI VE mg/dL negati ve- Not Available [facility] (Lab) [address] [place], [address], 08/12/2023 20:09:32 08/12/19 24 08/12/2023 URINA LYSIS COMPL ETE, IRIS blood 0.1 mg/dL negati ve- abnormal Not Available [facility] (Lab) [address] [place], [address], 08/12/2023 20:09:32 08/12/19 24 08/12/2023 URINA LYSIS COMPL ETE, IRIS color DARK-Y ELLOW Not Available [facility] (Lab) [address] [place], [address], 08/12/2023 20:10:14 08/12/19 24 08/12/2023 URINA LYSIS COMPL ETE, IRIS appear EXTRA TURBID abnormal Not Available [facility] (Lab) [address] [place], [address], 08/12/2023 20:10:14 08/12/19 24 08/12/2023 URINA LYSIS COMPL ETE, IRIS specific gravity 1.019 1.001- 1.030 Not Available [facility] (Lab) [address] [place], [address], 08/12/2023 20:10:14 08/12/19 24 08/12/2023 URINA LYSIS COMPL ETE, IRIS pH 5.5 pH_un its 5.0-9. 0 Not Available [facility] (Lab) [address] [place], [address], 08/12/2023 20:10:14 08/12/19 24 08/12/2023 URINA LYSIS COMPL ETE, IRIS leukocytes 250 robel/u L negati ve- abnormal Not Available [facility] (Lab) [address] [place], [address], 08/12/2023 20:10:14 08/12/19 24 08/12/2023 URINA LYSIS COMPL ETE, IRIS nitrite 2+ negati ve- abnormal Not Available [facility] (Lab) [address] [place], [address], 08/12/2023 20:10:14 08/12/19 24 08/12/2023 URINA LYSIS COMPL ETE, IRIS protein 50 mg/dL negati ve- abnormal Not Available [facility] (Lab) [address] [place], [address], 08/12/2023 20:10:14 08/12/19 24 08/12/2023 URINA LYSIS COMPL ETE, IRIS glucose NORMAL mg/dL normal - Not Available [facility] (Lab) [address] [place], [address], 08/12/2023 20:10:14 08/12/19 24 08/12/2023 URINA LYSIS COMPL ETE, IRIS ketones NEGATI VE mg/dL negati ve- Not Available [facility] (Lab) [address] [place], [address], 08/12/2023 20:10:14 08/12/19 24 08/12/2023 URINA LYSIS COMPL ETE, IRIS urobilinogen NORMAL mg/dL normal - Not Available [facility] (Lab) [address] [place], [address], 08/12/2023 20:10:14 08/12/19 24 08/12/2023 URINA LYSIS COMPL ETE, IRIS bilirubin NEGATI VE mg/dL negati ve- Not Available [facility] (Lab) [address] [place], [address], 08/12/2023 20:10:14 08/12/19 24 08/12/2023 URINA LYSIS COMPL ETE, IRIS blood 0.1 mg/dL negati ve- abnormal Not Available [facility] (Lab) [address] [place], [address], 08/12/2023 20:10:14 08/12/19 24 08/12/2023 URINA LYSIS COMPL ETE, IRIS white blood cells 21-40 /i??h pfi?? 0-8 abnormal Not Available [facility] (Lab) [address] [place], [address], 08/12/2023 20:10:14 08/12/19 24 08/12/2023 URINA LYSIS COMPL ETE, IRIS red blood cells NONE /i??h pfi?? 0-4 Not Available [facility] (Lab) [address] [place], [address], 08/12/2023 20:10:14 08/12/19 24 08/12/2023 URINA LYSIS COMPL ETE, IRIS bacteria MODERA TE abnormal Not Available [facility] (Lab) [address] [facility] [place], [address], 08/12/2023 20:10:14 08/12/19 24 08/12/2023 URINA LYSIS COMPL ETE, IRIS mucous OCCASI ONAL /i??l pfi?? abnormal Not Available [facility] (Lab) [address] [facility] [place], [address], 08/12/2023 20:10:14 08/12/19 24 08/12/2023 URINA LYSIS COMPL ETE, IRIS squamous epithelial OCCASI ONAL /i??l pfi?? abnormal Not Available [facility] (Lab) [address] [place], [address], 08/12/2023 20:10:14 08/12/19 24 08/12/2023 URINA LYSIS COMPL ETE, IRIS hyaline cast PACKED FIELD /i??l pfi?? none seen- abnormal Not Available [facility] (Lab) [address] [place], [address], 08/12/2023 20:10:14 08/12/19 24 08/12/2023 CBC/C OMPLE TE BLD COUNT W/DIF F white blood cells 6.3 x10'3 /uL 4.2-10 .8 Not Available [facility] (Lab) [address] [place], [address], 08/12/2023 20:19:03 08/12/19 24 08/12/2023 CBC/C OMPLE TE BLD COUNT W/DIF F red blood cells 4.06 x10'6 /uL 3.80-5 .20 Not Available [facility] (Lab) [address] [place], [address], 08/12/2023 20:19:03 08/12/19 24 08/12/2023 CBC/C OMPLE TE BLD COUNT W/DIF F hemoglobin 12.0 g/dL 12.0-1 5.6 Not Available [facility] (Lab) [address] [place], [address], 08/12/2023 20:19:03 08/12/19 24 08/12/2023 CBC/C OMPLE TE BLD COUNT W/DIF F hematocrit 35.4 % 35.7-4 5.7 low Not Available [facility] (Lab) [address] [place], [address], 08/12/2023 20:19:03 08/12/19 24 08/12/2023 CBC/C OMPLE TE BLD COUNT W/DIF F mean red cell volume 87.2 fL 82.0-9 9.0 Not Available [facility] (Lab) [address] [place], [address], 08/12/2023 20:19:03 08/12/19 24 08/12/2023 CBC/C OMPLE TE BLD COUNT W/DIF F mean red cell hemoglobin 29.6 pg 27.0-3 3.0 Not Available [facility] (Lab) [address] [place], [address], 08/12/2023 20:19:03 08/12/19 24 08/12/2023 CBC/C OMPLE TE BLD COUNT W/DIF F mean RBC HGB concentratio n 33.9 g/dL 31.0-3 6.0 Not Available [facility] (Lab) [address] [place], [address], 08/12/2023 20:19:03 08/12/19 24 08/12/2023 CBC/C OMPLE TE BLD COUNT W/DIF F red cell distribution width 16.9 % 11.8-1 5.5 high Not Available [facility] (Lab) [address] [place], [address], 08/12/2023 20:19:03 08/12/19 24 08/12/2023 CBC/C OMPLE TE BLD COUNT W/DIF F platelets 132 x10'3 /uL 150-40 0 low Not Available [facility] (Lab) [address] [place], [address], 08/12/2023 20:19:03 08/12/19 24 08/12/2023 CBC/C OMPLE TE BLD COUNT W/DIF F neutrophils 77.2 % 39.0-7 2.0 high Not Available [facility] (Lab) [address] [place], [address], 08/12/2023 20:19:03 08/12/19 24 08/12/2023 CBC/C OMPLE TE BLD COUNT W/DIF F lymphocytes 14.9 % 16.0-4 7.0 low Not Available [facility] (Lab) [address] [place], [address], 08/12/2023 20:19:03 08/12/19 24 08/12/2023 CBC/C OMPLE TE BLD COUNT W/DIF F monocytes 6.6 % 5.0-12 .0 Not Available [facility] (Lab) [address] [place], [address], 08/12/2023 20:19:03 08/12/19 24 08/12/2023 CBC/C OMPLE TE BLD COUNT W/DIF F eosinophils 0.6 % 1.0-7. 0 low Not Available [facility] (Lab) [address] [place], [address], 08/12/2023 20:19:03 08/12/19 24 08/12/2023 CBC/C OMPLE TE BLD COUNT W/DIF F basophils 0.2 % 0.0-2. 0 Not Available [facility] (Lab) [address] [place], [address], 08/12/2023 20:19:03 08/12/19 24 08/12/2023 CBC/C OMPLE TE BLD COUNT W/DIF F immature granulocytes 0.5 % 0.00-0 .50 Not Available [facility] (Lab) [address] [place], [address], 08/12/2023 20:19:03 08/12/19 24 08/12/2023 CBC/C OMPLE TE BLD COUNT W/DIF F neutrophils, absolute count 4.83 x10'3 /uL 1.5-8. 0 Not Available [facility] (Lab) [address] [place], [address], 08/12/2023 20:19:03 08/12/19 24 08/12/2023 CBC/C OMPLE TE BLD COUNT W/DIF F lymphocytes, absolute count 0.93 x10'3 /uL 1.07-3 .43 low Not Available [facility] (Lab) [address] [place], [address], 08/12/2023 20:19:03 08/12/19 24 08/12/2023 CBC/C OMPLE TE BLD COUNT W/DIF F monocytes, absolute count 0.41 x10'3 /uL 0.29-0 .99 Not Available [facility] (Lab) [address] [place], [address], 08/12/2023 20:19:03 08/12/19 24 08/12/2023 CBC/C OMPLE TE BLD COUNT W/DIF F eosinophils, absolute count 0.04 x10'3 /uL 0.02-0 .53 Not Available [facility] (Lab) [address] [place], [address], 08/12/2023 20:19:03 08/12/19 24 08/12/2023 CBC/C OMPLE TE BLD COUNT W/DIF F basophils, absolute count 0.01 x10'3 /uL 0.01-0 .08 Not Available [facility] (Lab) [address] [place], [address], 08/12/2023 20:19:03 08/12/19 24 08/12/2023 CBC/C OMPLE TE BLD COUNT W/DIF F immature granulocytes ,absolute 0.03 x10'3 /uL 0.00-0 .05 Not Available [facility] (Lab) [address] [place], [address], 08/12/2023 20:19:03 08/12/19 24 08/12/2023 CBC/C OMPLE TE BLD COUNT W/DIF F nucleated red blood cells 0.0 % -0 Not Available [facility] (Lab) [address] [place], [address], 08/12/2023 20:19:03 08/12/19 24 08/12/2023 CBC/C OMPLE TE BLD COUNT W/DIF F NRBC# 0.00 x10'3 /uL Not Available [facility] (Lab) [address] [place], [address], 08/12/2023 20:19:03 08/12/19 24 08/12/2023 COMPR EHENS DIMPLE METAB OLIC PANEL sodium 137 mmol/ L 137-14 5 Not Available [facility] (Lab) [address] [place], [address], 08/12/2023 21:52:10 08/12/19 24 08/12/2023 COMPR EHENS DIMPLE METAB OLIC PANEL potassium 3.3 mmol/ L 3.5-5. 1 low Not Available [facility] (Lab) [address] [place], [address], 08/12/2023 21:52:10 08/12/19 24 08/12/2023 COMPR EHENS DIMPLE METAB OLIC PANEL chloride 106 mmol/ L 98-107 Not Available [facility] (Lab) [address] [place], [address], 08/12/2023 21:52:10 08/12/19 24 08/12/2023 COMPR EHENS DIMPLE METAB OLIC PANEL carbon dioxide 24 mmol/ L 22-30 Not Available [facility] (Lab) [address] [place], [address], 08/12/2023 21:52:10 08/12/19 24 08/12/2023 COMPR EHENS DIMPLE METAB OLIC PANEL anion gap 10.3 mmol/ L 14-22 low Not Available [facility] (Lab) [address] [place], [address], 08/12/2023 21:52:10 08/12/19 24 08/12/2023 COMPR EHENS DIMPLE METAB OLIC PANEL glucose 118 mg/dL 70-99 high Not Available [facility] (Lab) [address] [place], [address], 08/12/2023 21:52:10 08/12/19 24 08/12/2023 COMPR EHENS DIMPLE METAB OLIC PANEL BUN 22 mg/dL 8-19 high Not Available [facility] (Lab) [address] [place], [address], 08/12/2023 21:52:10 05/0108/12/2023 COMPR EHENS DIMPLE METAB OLIC PANEL creatinine 0.68 mg/dL 0.66-1 .25 Not Available [facility] (Lab) [address] [place], [address], 08/12/2023 21:52:10 08/12/19 24 08/12/2023 COMPR EHENS DIMPLE METAB OLIC PANEL GFR >60 Refer ence Range : Gilberts ge GFR Healt hy Adult : >60 [...] or ethni c subgr oups, such as [facility] nics. Outsi de the valid ated [...] calcu lator is avail able on the [facility] websi te: https :[email or web address] [email or web address] [email or web address] rg/pr ofess ional s/kdo qi/gf r_cal culat or Not Available [facility] (Lab) [address] [place], [address], 08/12/2023 21:52:10 08/12/19 24 08/12/2023 COMPR EHENS DIMPLE METAB OLIC PANEL alkaline phosphatase 64 U/L 38-126 Not Available [facility] (Lab) [address] [place], [address], 08/12/2023 21:52:10 08/12/19 24 08/12/2023 COMPR EHENS DIMPLE METAB OLIC PANEL alanine aminotransfe rase 24 U/L 0-35 Not Available [facility] (Lab) [address] [place], [address], 08/12/2023 21:52:10 08/12/19 24 08/12/2023 COMPR EHENS DIMPLE METAB OLIC PANEL aspartate aminotransfe rase 51 U/L 15-37 high Not Available [facility] (Lab) [address] [place], [address], 08/12/2023 21:52:10 08/12/19 24 08/12/2023 COMPR EHENS DIMPLE METAB OLIC PANEL bilirubin, total 0.80 mg/dL 0.20-1 .30 Not Available [facility] (Lab) [address] [place], [address], 08/12/2023 21:52:10 08/12/19 24 08/12/2023 COMPR EHENS DIMPLE METAB OLIC PANEL calcium 8.8 mg/dL 8.4-10 .2 Not Available [facility] (Lab) [address] [place], [address], 08/12/2023 21:52:10 08/12/19 24 08/12/2023 COMPR EHENS DIMPLE METAB OLIC PANEL total protein 6.5 g/dL 6.3-8. 2 Not Available [facility] (Lab) [address] [place], [address], 08/12/2023 21:52:10 08/12/19 24 08/12/2023 COMPR EHENS DIMPLE METAB OLIC PANEL albumin 3.5 g/dL 3.0-4. 4 Not Available [facility] (Lab) [address] [place], [address], 08/12/2023 21:52:10 08/12/19 24 08/12/2023 COMPR EHENS DIMPLE METAB OLIC PANEL globulin 3.0 g/dL 2.6-4. 2 Not Available [facility] (Lab) [address] [place], [address], 08/12/2023 21:52:10 08/12/19 24 08/12/2023 COMPR EHENS DIMPLE METAB OLIC PANEL A/G ratio 1.2 ratio 1.0-2. 0 Not Available [facility] (Lab) [address] [place], [address], 08/12/2023 21:52:10 08/12/19 24 08/12/2023 T3 FREE free T3 4.0 pg/mL 2.77-5 .27 Not Available [facility] (Lab) [address] [place], [address], 08/12/2023 22:17:00 08/12/19 24 08/12/2023 T4 FREE free T4 1.62 NG/dL 0.78-2 .19 Not Available [facility] (Lab) [address] [place], [address], 08/12/2023 22:17:02 08/12/19 24 08/12/2023 TSH thyroid-stim ulating hormone 2.300 uIU/m L 0.465- 4.680 Not Available [facility] (Lab) [address] [place], [address], 08/12/2023 22:18:06 08/12/19 24 08/12/2023 CULTU RE URINE urc ===== ===== ===== ===== ===== ===== ===== ===== ===== ===== ===== ===== ===== ===== ===== ===== ===== ===== ===== ===== ===== ===== ===== ===== Speci men NO.: [id number] 13 Exam Statu s: Final Proce dure: [...] SSUP SRES [place] [id number] Oxida se React ion P Amp/S ulbac [...] RESS TS ED R ESUL Not Available [facility] (Lab) [address] [place], [address], 08/14/2023 08:46:57 10/27/19 24 10/27/2023 URINA LYSIS COMPL ETE/I RIS W/RFX color YELLOW Not Available [facility] (Lab) [address] [place], [address], 10/27/2023 20:07:20 10/27/19 24 10/27/2023 URINA LYSIS COMPL ETE/I RIS W/RFX appear TURBID abnormal Not Available [facility] (Lab) [address] [place], [address], 10/27/2023 20:07:20 10/27/19 24 10/27/2023 URINA LYSIS COMPL ETE/I RIS W/RFX specific gravity 1.013 1.001- 1.030 Not Available [facility] (Lab) [address] [place], [address], 10/27/2023 20:07:20 10/27/19 24 10/27/2023 URINA LYSIS COMPL ETE/I RIS W/RFX pH 8.0 pH_un its 5.0-9. 0 Not Available [facility] (Lab) [address] [place], [address], 10/27/2023 20:07:20 10/27/19 24 10/27/2023 URINA LYSIS COMPL ETE/I RIS W/RFX leukocytes NEGATI VE robel/u L negati ve- Not Available [facility] (Lab) [address] [place], [address], 10/27/2023 20:07:20 10/27/19 24 10/27/2023 URINA LYSIS COMPL ETE/I RIS W/RFX nitrite NEGATI VE negati ve- Not Available [facility] (Lab) [address] [place], [address], 10/27/2023 20:07:20 10/27/19 24 10/27/2023 URINA LYSIS COMPL ETE/I RIS W/RFX protein 10 mg/dL negati ve- abnormal Not Available [facility] (Lab) [address] [place], [address], 10/27/2023 20:07:20 10/27/19 24 10/27/2023 URINA LYSIS COMPL ETE/I RIS W/RFX glucose NORMAL mg/dL normal - Not Available [facility] (Lab) [address] [facility] [place], [address], 10/27/2023 20:07:20 10/27/19 24 10/27/2023 URINA LYSIS COMPL ETE/I RIS W/RFX ketones NEGATI VE mg/dL negati ve- Not Available [facility] (Lab) [address] [place], [address], 10/27/2023 20:07:20 10/27/19 24 10/27/2023 URINA LYSIS COMPL ETE/I RIS W/RFX urobilinogen NORMAL mg/dL normal - Not Available [facility] (Lab) [address] [place], [address], 10/27/2023 20:07:20 10/27/19 24 10/27/2023 URINA LYSIS COMPL ETE/I RIS W/RFX bilirubin NEGATI VE mg/dL negati ve- Not Available [facility] (Lab) [address] [place], [address], 10/27/2023 20:07:20 10/27/19 24 10/27/2023 URINA LYSIS COMPL ETE/I RIS W/RFX blood NEGATI VE mg/dL negati ve- Not Available [facility] (Lab) [address] [place], [address], 10/27/2023 20:07:20 10/27/19 24 10/27/2023 URINA LYSIS COMPL ETE/I RIS W/RFX white blood cells 0-8 /i??h pfi?? 0-8 Not Available [facility] (Lab) [address] [place], [address], 10/27/2023 20:07:20 10/27/19 24 10/27/2023 URINA LYSIS COMPL ETE/I RIS W/RFX red blood cells 0-4 /i??h pfi?? 0-4 Not Available [facility] (Lab) [address] [place], [address], 10/27/2023 20:07:20 10/27/19 24 10/27/2023 URINA LYSIS COMPL ETE/I RIS W/RFX bacteria OCCASI ONAL abnormal Not Available [facility] (Lab) [address] [place], [address], 10/27/2023 20:07:20 10/27/19 24 10/27/2023 URINA LYSIS COMPL ETE/I RIS W/RFX mucous OCCASI ONAL /i??l pfi?? abnormal Not Available [facility] (Lab) [address] [place], [address], 10/27/2023 20:07:20 10/27/19 24 10/27/2023 URINA LYSIS COMPL ETE/I RIS W/RFX squamous epithelial MODERA TE /i??l pfi?? abnormal Not Available [facility] (Lab) [address] [place], [address], 10/27/2023 20:07:20 10/27/19 24 10/27/2023 URINA LYSIS COMPL ETE/I RIS W/RFX hyaline cast FEW /i??l pfi?? none seen- abnormal Not Available [facility] (Lab) [address] [place], [address], 10/27/2023 20:07:20 04/29/19 25 04/29/2024 CBC W/O DIFFE RENTI AL white blood cells 1.5 x10'3 /uL 4.2-10 .8 critical low Not Available [facility] (Lab) [address] [place], [address], 04/29/2024 18:07:26 04/29/19 25 04/29/2024 CBC W/O DIFFE RENTI AL red blood cells 3.50 x10'6 /uL 3.80-5 .20 low Not Available [facility] (Lab) [address] [place], [address], 04/29/2024 18:07:26 04/29/19 25 04/29/2024 CBC W/O DIFFE RENTI AL hemoglobin 10.3 g/dL 12.0-1 5.6 low Not Available [facility] (Lab) [address] [place], [address], 04/29/2024 18:07:26 04/29/19 25 04/29/2024 CBC W/O DIFFE RENTI AL hematocrit 31.0 % 35.7-4 5.7 low Not Available [facility] (Lab) [address] [place], [address], 04/29/2024 18:07:26 04/29/19 25 04/29/2024 CBC W/O DIFFE RENTI AL mean red cell volume 88.6 fL 82.0-9 9.0 Not Available [facility] (Lab) [address] [place], [address], 04/29/2024 18:07:26 04/29/19 25 04/29/2024 CBC W/O DIFFE RENTI AL mean red cell hemoglobin 29.4 pg 27.0-3 3.0 Not Available [facility] (Lab) [address] [place], [address], 04/29/2024 18:07:26 04/29/19 25 04/29/2024 CBC W/O DIFFE RENTI AL mean RBC HGB concentratio n 33.2 g/dL 31.0-3 6.0 Not Available [facility] (Lab) [address] [place], [address], 04/29/2024 18:07:26 04/29/19 25 04/29/2024 CBC W/O DIFFE RENTI AL red cell distribution width 16.8 % 11.8-1 5.5 high Not Available [facility] (Lab) [address] [place], [address], 04/29/2024 18:07:26 04/29/19 25 04/29/2024 CBC W/O DIFFE RENTI AL platelets 90 x10'3 /uL 150-40 0 low Not Available [facility] (Lab) [address] [place], [address], 04/29/2024 18:07:26 04/29/19 25 04/29/2024 CBC W/O DIFFE RENTI AL mean platelet volume 11.7 fL 9.0-12 .4 Not Available [facility] (Lab) [address] [place], [address], 04/29/2024 18:07:26 05/02/19 25 05/02/2024 URINA LYSIS COMPL ETE/I RIS W/RFX color YELLOW Not Available [facility] (Lab) [address] [place], [address], 05/02/2024 16:53:40 05/02/19 25 05/02/2024 URINA LYSIS COMPL ETE/I RIS W/RFX appear EXTRA TURBID abnormal Not Available [facility] (Lab) [address] [place], [address], 05/02/2024 16:53:40 05/02/19 25 05/02/2024 URINA LYSIS COMPL ETE/I RIS W/RFX specific gravity 1.015 1.001- 1.030 Not Available [facility] (Lab) [address] [place], [address], 05/02/2024 16:53:40 05/02/19 25 05/02/2024 URINA LYSIS COMPL ETE/I RIS W/RFX pH 5.5 pH_un its 5.0-9. 0 Not Available [facility] (Lab) [address] [place], [address], 05/02/2024 16:53:40 05/02/19 25 05/02/2024 URINA LYSIS COMPL ETE/I RIS W/RFX leukocytes NEGATI VE robel/u L negati ve- Not Available [facility] (Lab) [address] [place], [address], 05/02/2024 16:53:40 05/02/19 25 05/02/2024 URINA LYSIS COMPL ETE/I RIS W/RFX nitrite NEGATI VE negati ve- Not Available [facility] (Lab) [address] [place], [address], 05/02/2024 16:53:40 05/02/19 25 05/02/2024 URINA LYSIS COMPL ETE/I RIS W/RFX protein 20 mg/dL negati ve- abnormal Not Available [facility] (Lab) [address] [place], [address], 05/02/2024 16:53:40 05/02/19 25 05/02/2024 URINA LYSIS COMPL ETE/I RIS W/RFX glucose NORMAL mg/dL normal - Not Available [facility] (Lab) [address] [place], [address], 05/02/2024 16:53:40 05/02/19 25 05/02/2024 URINA LYSIS COMPL ETE/I RIS W/RFX ketones NEGATI VE mg/dL negati ve- Not Available [facility] (Lab) [address] [place], [address], 05/02/2024 16:53:40 05/02/19 25 05/02/2024 URINA LYSIS COMPL ETE/I RIS W/RFX urobilinogen NORMAL mg/dL normal - Not Available [facility] (Lab) [address] [place], [address], 05/02/2024 16:53:40 05/02/19 25 05/02/2024 URINA LYSIS COMPL ETE/I RIS W/RFX bilirubin NEGATI VE mg/dL negati ve- Not Available [facility] (Lab) [address] [place], [address], 05/02/2024 16:53:40 05/02/19 25 05/02/2024 URINA LYSIS COMPL ETE/I RIS W/RFX blood NEGATI VE mg/dL negati ve- Not Available [facility] (Lab) [address] [place], [address], 05/02/2024 16:53:40 05/02/19 25 05/02/2024 URINA LYSIS COMPL ETE/I RIS W/RFX white blood cells 0-8 /i??h pfi?? 0-8 Not Available [facility] (Lab) [address] [place], [address], 05/02/2024 16:53:40 05/02/19 25 05/02/2024 URINA LYSIS COMPL ETE/I RIS W/RFX red blood cells 0-4 /i??h pfi?? 0-4 Not Available [facility] (Lab) [address] [place], [address], 05/02/2024 16:53:40 05/02/19 25 05/02/2024 URINA LYSIS COMPL ETE/I RIS W/RFX bacteria PACKED FIELD abnormal Not Available [facility] (Lab) [address] [place], [address], 05/02/2024 16:53:40 05/02/19 25 05/02/2024 URINA LYSIS COMPL ETE/I RIS W/RFX mucous OCCASI ONAL /i??l pfi?? abnormal Not Available [facility] (Lab) [address] [place], [address], 05/02/2024 16:53:40 05/02/19 25 05/02/2024 URINA LYSIS COMPL ETE/I RIS W/RFX squamous epithelial OCCASI ONAL /i??l pfi?? abnormal Not Available [facility] (Lab) [address] [place], [address], 05/02/2024 16:53:40 Result Notes None recorded. Problems Name Problem SNOMED Code Status Onset Date Resolution Date Notes Provider Name and Address Organization Details Recorded Time Chronic hepatitis C 978965741 Active 2020 Not Available [facility] 3 16:21:43 Constipati on 26390067 Active 2020 Not Available [facility] 3 16:21:43 Insomnia 592724755 Active 2020 Not Available [facility] 3 16:21:43 Adult health examinatio n Active 2020 Not Available [facility] 3 16:21:43 History of cerebrovas cular accident 949177744 Active 2020 Not Available [facility] 3 16:21:43 Depressive disorder 46076274 Active 2020 Not Available [facility] 3 16:21:44 Osteoarthr itis 184055318 Active 2020 Not Available [facility] 3 16:21:44 Cough 93919813 Completed 202208/21/2022 Adelina feldman, RMA null, [facility] 3 12:36:55 Hyperlipid emia 48379499 Active 2020 Not Available [facility] 3 16:21:44 Essential hypertensi on 04253072 Active 2020 Not Available [facility] 3 16:21:44 Overactive urinary bladder 195282725 Active 2020 Not Available [facility] 3 16:21:44 Mammograph y abnormal 540766362 Active 2022 Not Available [facility] 3 16:21:43 Coronary arterioscl erosis 28167858 Active 2022 Not Available [facility] 3 16:21:44 Fatigue 55901977 Active 2022 Not Available [facility] 3 16:21:44 Acute urinary tract infection 061307270 Active 2022 Not Available [facility] 3 16:21:44 Viral hepatitis C 73490171 Active 2022 Not Available [facility] 3 16:21:44 Hypothyroi dism 92283184 Active 2022 Not Available [facility] 3 16:21:44 Edema of lower extremity 386901548 Active 2022 Not Available [facility] 3 16:21:43 Urinary symptoms 845643433 Active 2022 Not Available [facility] 3 16:21:43 Neuropathy 009607626 Active 2023 Roberto Gotti MD [address], [place], [address] , [facility] 4 16:01:07 Nausea and vomiting 61706481 Active 2023 Roberto Gotti MD [address], [place], [address] , [facility] 4 15:09:20 Abnormal weight loss 575345132 Active 2023 Roberto Gotti MD [address], [place], [address] , [facility] 4 15:09:48 Abdominal pain 07226313 Active 2023 Roberto Gotti MD [address], [place], [address] , [facility] 4 14:37:49 Pancytopen ia 680635751 Active 2023 Roberto Gotti MD [address], [place], [address] , [facility] 4 14:38:50 Urinary tract infectious disease 87768941 Active 2023 Marcie Purcell MA null, [facility] 4 17:02:18 Anemia 714754770 Active 2024 RACHEL Naqvi null, [facility] 5 09:35:38 White blood cell count outside reference range 990196072 Active 2024 Angelika Coley LPN null, [facility] 5 09:46:33 Problem Notes None recorded. Medical Equipment None Reported. Allergies Allergen ID Allergen Name Allergen Category Reaction Reaction Severity Criticality Documentation Date Start Date Code Code System Note Provider Name and Address Organization Details Recorded Time 64997 Substance with sulfonami de structure and antibacte rial mechanism of action (substanc e) medicatio n Not available Not available Not available 06/11/2022 07205 8003 SNOMED Not Available [facility] 3 23:32:11 26661 Product containin g penicilli n (product) medicatio n Not available Not available Not available 06/11/2022 83168 8001 SNOMED Not Available [facility] 3 23:32:11 Medications Name Sig Start Date Stop Date Status Note LastModified by Organization Details LastModified Time losartan 50 mg tablet TAKE 1 TABLET BY MOUTH EVERY DAY 11/27 completed Not Available Not Available Not Available atorvasta tin 40 mg tablet TAKE 1 TABLET BY MOUTH EVERY DAY 2024 active Not Available Not Available Not Avai lable promethaz ine-DM 6.25 mg-15 mg/5 mL oral [...] BY MOUTH TWICE A DAY 2024 active POLO 05/20/24 NOV 09/15/24 ok to rf Not Available Not Available Not Available clarithro mycin 500 mg tablet TAKE 1 TABLET BY MOUTH TWICE A DAY FOR 7 DAYS 04/23 completed Not Available Not Available Not Available sertralin e 100 mg tablet TAKE 1 TABLET BY MOUTH EVERY DAY 2024 active Not Available Not Available Not Avai lable metronida zole 500 mg tablet TAKE 1 [...] completed Not Available Not Available Not Available [place] Thyroid 15 mg tablet Take 1 tablet [...] Not Available Not Available Not Avai lable levothyro xine 50 mcg tablet TAKE 1 [...] Not Available Calcium 600-D3 Plus (mag-zinc ) 07/29/ 2021 active Not Available Not Available Not Avai [...] % 122 mm[Hg] 70 mm[Hg] Tracey Flowers [facility] [email or web address] [facility] 4 15:24:32 Date Recorded Body height Body mass index (BMI) Body weight Body temperature Heart rate Oxygen saturation Oxygen saturation in Arterial blood by Pulse oximetry Systolic blood pressure Diastolic blood pressure Provider Name and Address Organization Details Last Updated DateTime 4 162.56 cm 27.7 kg/m2 87148.1 7 g 98.4 [degF] 78 /min 96 % 96 % 120 mm[Hg] 70 mm[Hg] Perla Shen Trupti [facility] [email or web address] [facility] 4 14:47:42 Date Recorded Body height Body temperature Heart rate Oxygen saturation Oxygen saturation in Arterial blood by Pulse oximetry Systolic blood pressure Diastolic blood pressure Provider Name and Address Organization Details Last Updated DateTime 4 162.56 cm 97 [degF] 67 /min 93 % 93 % 120 mm[Hg] 66 mm[Hg] Perla Shen Trupti [facility] [email or web address] [facility] 4 15:39:53 Date Recorded Body height Body temperature Heart rate Oxygen saturation Oxygen saturation in Arterial blood by Pulse oximetry Systolic blood pressure Diastolic blood pressure Provider Name and Address Organization Details Last Updated DateTime 4 162.56 cm 96.9 [degF] 89 /min 96 % 96 % 110 mm[Hg] 70 mm[Hg] Adelina jarquin [facility] [employer] [facility] [email or web address] [facility] 4 14:17:35 Date Recorded Body height Body temperature Body mass index (BMI) Body weight Heart rate Oxygen saturation Oxygen saturation in Arterial blood by Pulse oximetry Systolic blood pressure Diastolic blood pressure Provider Name and Address Organization Details Last Updated DateTime 5 162.56 cm 97.2 [degF] 21.8 kg/m2 87687.2 3 g 85 /min 96 % 96 % 144 mm[Hg] 70 mm[Hg] Adelina jarquin, RACHEL [facility] 5 12:24:08 Social History Question Answer Notes LastModified by Organizat ion Details LastModified Time Tobacco Smoking Status Former Smoker Not Available [facility] 06/11/2022 23:28:38 Do You Have An Advance Directive? No MIGRATION.07553 08156 Information not available 06/11/2022 What Is Your Level Of Alcohol Consumption? Moderate MIGRATION.02204 73599 Information not available 06/11/2022 Are You Blind Or Do You Have Difficulty Seeing? No MIGRATION.06048 55989 Information not available 06/11/2022 What Is Your Level Of Caffeine Consumption? Moderate MIGRATION.88208 34097 Information not available 06/11/2022 In The 14 Days Before Symptom Onset, Have You Had Close Contact With A Laboratory-confi rmed COVID-19 While That Case Was Ill? No MIGRATION.66919 72804 Information not available 06/11/2022 In The 14 Days Before Symptom Onset, Have You Had Close Contact With A Person Who Is Under Investigation For COVID-19 While That Person Was Ill? No MIGRATION.60905 85340 Information not available 06/11/2022 Are You Deaf Or Do You Have Serious Difficulty Hearing? No MIGRATION.00622 82255 Information not available 06/11/2022 What Type Of Diet Are You Following? REGULAR MIGRATION.48657 62148 Information not available 06/11/2022 Which Illicit Or Recreational Drugs Have You Used? Marijuana MIGRATION.78072 71835 Information not available 06/11/2022 What Is The Highest Grade Or Level Of School You Have Completed Or The Highest Degree You Have Received? [id number] MIGRATION.05330 74676 Information not available 06/11/2022 Have There Been Any Changes To Your Family Or Social Situation? No MIGRATION.54359 73345 Information not available 06/11/2022 What Is The Fluoride Status Of Your Home? Unknown MIGRATION.19565 24558 Information not available 06/11/2022 When Did You Quit Smoking? 17+yearssinnaveen barroso MIGRATION.21339 67910 Information not available 06/11/2022 Are There Any Guns Present In Your Home? No MIGRATION.58451 30087 Information not available 06/11/2022 Do You Use Insect Repellent Routinely? No MIGRATION.16927 78264 Information not available 06/11/2022 Where Do You Live? [place]House MIGRATION.74286 67058 Information not available 06/11/2022 Do You Have A Medical Power Of Health Science Instructor? Yes MIGRATION.40917 36211 Information not available 06/11/2022 What Was The Date Of Your Most Recent Tobacco Screening? 11/08/2020 MIGRATION.30238 34245 Information not available 06/11/2022 Do You Have Any Pets? No MIGRATION.48151 06441 Information not available 06/11/2022 What Is Your Relationship Status? MIGRATION.78987 06496 Information not available 06/11/2022 Do You Use Your Seat Belt Or Car Seat Routinely? Yes MIGRATION.13830 29080 Information not available 06/11/2022 Do You Have Smoke And Carbon Monoxide Detectors In Your Home? Yes MIGRATION.11488 97429 Information not available 06/11/2022 Are You Passively Exposed To Smoke? No MIGRATION.83324 19492 Information not available 06/11/2022 Are There Any Smokers In Your House? No MIGRATION.27727 64200 Information not available 06/11/2022 Do You Feel Stressed (tense, Restless, Nervous, Or Anxious, Or Unable To Sleep At Night)? [id number] MIGRATION.24675 83534 Information not available 06/11/2022 Do You Use Any Illicit Or Recreational Drugs? Yes MIGRATION.31603 89338 Information not available 06/11/2022 Do You Use Sunscreen Routinely? No MIGRATION.02404 99271 Information not available 06/11/2022 Have You Recently Traveled Abroad? No MIGRATION.70549 37317 Information not available 06/11/2022 Do You Have Any Dietary Restrictions? No MIGRATION.12172 40521 Information not available 06/11/2022 Do You Or Have You Ever Used Any Other Forms Of Tobacco Or Nicotine? No MIGRATION.67190 37470 Information not available 06/11/2022 Sex: Unknown Functional Status Question Answer Note LastModified by Organizat ion Details LastModified Time Do you have difficulty walking or climbing stairs? Yes MIGRATION.9043664 026 Information not available 06/11/2022 Do you have transportation difficulties? Yes MIGRATION.9339611 026 Information not available 06/11/2022 Are you able to walk? YESASSIST MIGRATION.0503412 026 Information not available 06/11/2022 Do you have difficulty doing errands alone? Yes MIGRATION.0796922 026 Information not available 06/11/2022 Are you able to care for yourself? Yes MIGRATION.9372347 026 Information not available 06/11/2022 Do you have difficulty dressing or bathing? No MIGRATION.5609623 026 Information not available 06/11/2022 What is your exercise level? None MIGRATION.6534429 026 Information not available 06/11/2022 Mental Status Question Answer Note LastModified by Organizat ion Details LastModified Time Do you have difficulty concentrating, remembering or making decisions? Yes MIGRATION.149722140 6 Information not available 06/11/2022 Family History Nothing Reported. Medical History No medical history recorded. Gynecological HistoryNo gynecological history recorded. Obstetrics History GPAL:G 0 P 0 0 0 0 Immunizations Vaccine Type Date Status Note Provider Nam e and Address Organization Details Recorded Time COVID-19, mRNA, LNP-S, PF, 30 mcg/0.3 mL dose 07/30/2020 completed Not Available [facility] 3 23:32:09 COVID-19, mRNA, LNP-S, PF, 30 mcg/0.3 mL dose 06/28/2020 completed Not Available [facility] 3 23:32:09 Past Encounters Encounter ID Performer Location Encounter Start Date Encounter Closed Date Diagnosis/Indication Diagnosis SNOMED-CT Code Diagnosis ICD10 Code Diagnosis Note [id number] [facility] [address] [place] [address] 11/08/2020 00:00:00 11/08/2020 16:39:07 [id number] [facility] [address] [place] [address] 12/10/2020 00:00:00 12/10/2020 16:35:44 [id number] [facility] [address] [place] [address] 04/23/2022 00:00:00 04/23/2022 15:51:18 [id number] Roberto Gotti MD [facility] Internal [facility] [address] [place] [address] 08/21/2022 12:27:20 08/21/2022 13:02:45 Essential hypertension 01486782 I10 on meds Constipation 03276992 K5 9.00 better Chronic hepatitis C 1283 37640 B18.2 Overactive urinary bladder 630974460 N32.81 change to oxybutynin Depressive disorder 3548 9007 F32.9 under control Hyperlipidemia 78942307 E78.5 labs Osteoarthritis 445714901 M19.90 on meds History of cerebrovascular accident 734492630 Z86.73 using cane Insomnia 639963561 G47.0 0 trazodone helps Coronary arteriosclerosis 87973217 I25.10 no symptoms Adult th examination 048854466 Z00.00 Colonoscop y 01/02Pneumo vax not sure ( said had all kinds of shots )Mammogram - 3Dex a- 3cov id- Mammography abnormal 168 718619 R92.8 ultra sound was nl Fatigue 35844585 R53.83 [id number] Roberto Gotti MD [facility] Internal [facility] [address] [facility] [place] [address] 10/02/2022 16:12:38 10/02/2022 16:36:32 Fatigue 33513574 R53.83 she needs to sleep at night and not sleep during the day timeget all the labs, has been ordered many times Constipation 51982996 K5 9.00 stool softner and miralax [id number] Roberto Gotti MD [facility] Internal Med [address] [place] [address] 10/16/2022 10:38:42 10/16/2022 11:20:55 Viral hepatitis C 88880900 B19.20 needs treatment Hypothyroidism [id number] E03.9 start meds [id number] Roberto Gotti MD [facility] Internal Med [address] [place] [address] 11/27/2022 11:12:20 11/27/2022 11:51:19 Edema of lower extremity 709972627 R60.0 stop amlodipine ^ LOSARATNco mpression socks [id number] Roberto Gotti MD [facility] Internal Med [address] [place] [address] 12/17/2022 16:11:47 12/18/2022 10:25:27 Urinary symptoms 474417978 R39.9 dipstick noted [id number] Roberto Gotti MD [facility] Internal Med [address] [place] [address] 01/01/2023 11:09:06 01/01/2023 12:05:24 Essential hypertension 68755133 I10 under control Constipation 10407300 K5 9.00 better Chronic hepatitis C 1283 03754 B18.2 no treatment rec by GI Overactive urinary bladder 882934899 N32.81 oxybutynin HELPS Depressive disorder 3548 9007 F32.9 under control Hyperlipidemia 85072719 E78.5 labs Osteoarthritis 699863500 M19.90 on meds History of cerebrovascular accident 442212054 Z86.73 using cane/ WHEEL CHAIR Insomnia 066423662 G47.0 0 trazodone helps Coronary arteriosclerosis 03658922 I25.10 no symptoms Adult heal th examination 958389933 Z00.00 Colonoscop y 01/02Pneumo vax not sure ( said had all kinds of shots )Mammogram - 3Dex a- 3cov id- Mammography abnormal 168 502284 R92.8 ultra sound was nl, need f/u Hypothyroidism 98381093 E03.9 change meds [id number] Roberto Gotti MD [facility] Internal Med [address] [place] [address] 03/31/2023 15:58:30 03/31/2023 17:37:22 Essential hypertension 88508596 I10 under control Constipation 53691654 K5 9.00 better Chronic hepatitis C 1283 99598 B18.2 no treatment rec by GI Overactive urinary bladder 634522827 N32.81 oxybutynin HELPS Depressive disorder 3548 9007 F32.9 under control Hyperlipidemia 19594328 E78.5 labs Osteoarthritis 869988293 M19.90 on meds History of cerebrovascular accident 279785594 Z86.73 using cane/ WHEEL CHAIR Insomnia 430473003 G47.0 0 trazodone helps Coronary arteriosclerosis 50682172 I25.10 no symptoms Adult heal th examination 118735664 Z00.00 Colonoscop y 01/02Pneumo vax not sure ( said had all kinds of shots )Mammogram - 3Dex a- 3cov id- 2022- [facility]SFLU- [facility] Hypothyroidism 92457938 E03.9 discussed with son, confused and meds and was still giving levothyrox ine, will again change to armour thyroid [id number] Roberto Gotti MD [facility] Internal Med [address] [place] [address] 04/20/2023 15:17:10 04/20/2023 16:04:23 Neuropathy 329533424 G62.9 [id number] [address] [facility] Internal [address] [place] [address] 08/12/2023 14:41:46 08/12/2023 15:37:09 Hypothyroidism 52825608 E03.9 Nausea and vomiting 1693 2000 R11.2 gastritis ? ulcerstop drinking beeravoid NSAIDS Abnormal weight loss 267 368939 R63.4 [id number] [address] G[address] [facility] Internal [address] [place] [address] 09/02/2023 15:33:48 09/02/2023 16:17:40 Essential hypertension 31405693 I10 under control Constipation 16429939 K5 9.00 Chronic hepatitis C 1283 18311 B18.2 no treatment rec by GI Overactive urinary bladder 307915436 N32.81 oxybutynin HELPS Depressive disorder 3548 9007 F32.9 under control Hyperlipidemia 66396087 E78.5 stable Osteoarthritis 608500347 M19.90 on meds History of cerebrovascular accident 491768210 Z86.73 using cane/ WHEEL CHAIR Insomnia 425095110 G47.0 0 trazodone helps Coronary arteriosclerosis 58333170 I25.10 no symptoms Adult heal th examination 280972116 Z00.00 Colonoscop y- 01/02Pneumo vax not sure ( said had all kinds of shots )Mammogram - 3Dex a- 3cov id- 2022- [facility]SFLU- [facility] Hypothyroidism 58849146 E03.9 on meds Abnormal weight loss 267 224930 R63.4 needs more w/u Nausea and vomiting 1693 1999 R11.2 [id number] Roberto Gotti MD [facility] Internal Med [address] [place] [address] 10/27/2023 14:03:35 10/27/2023 15:02:29 Abdominal pain 72464633 R10.9 getting better, hosp rec to see GI as well and pt asking Acute urin tony tract infection 941374356 N39.0 treated, still has symptoms, check ua Pancytopenia 644335268 D 61.818 repeat cbc in a month [id number] Roberto Gotti MD [facility] Internal Med [address] [place] [address] 05/20/2024 12:16:06 05/20/2024 13:10:16 Essential hypertension 47399135 I10 under control Chronic hepatitis C 1283 57106 B18.2 no treatment rec by GI Overactive urinary bladder 712814299 N32.81 does not want meds Depressive disorder 3548 9007 F32.9 under control Hyperlipidemia 29491842 E78.5 stable Osteoarthritis 192312233 M19.90 on meds History of cerebrovascular accident 110425632 Z86.73 using cane/ WHEEL CHAIR Insomnia 672237670 G47.0 0 trazodone helps Coronary arteriosclerosis 72591488 I25.10 no symptoms Adult heal th examination 938545972 Z00.00 Colonoscop y- 01/02Pneumo vax not sure ( said had all kinds of shots )Mammogram - 07/2022, 02/2023 rtDexa- 3cov id- 2022- [facility]SFLU- 2023 [facility] Hypothyroidism 91929972 E03.9 to take meds daily Abnormal weight loss 267 702146 R63.4 needs more w/u, seeing hematology Pancytopenia 773152671 D 61.818 seeing hematology Health Concerns Section Related Observation LastModified by Organization Detai ls LastModified Time None Recorded Concern Status LastModified by Organization Details LastModified Time None Recorded Advance Directives Directive N: Payers Encounter Date Sequence Insurance Name Policy Number Policy Ghotra Covered Member ID Ghotra Member ID Guarantor Name 04/20/2023 1 [facility] (MEDICARE REPLACEMENT/A DVANTAGE - HMO) [id number] Lauren Rico [place] [id number] Lauren [place] 08/12/2023 1 [facility] (MEDICARE REPLACEMENT/A DVANTAGE - HMO) [id number] Lauren Rico [place] [id number] Lauren [place] 09/02/2023 1 [facility] (MEDICARE REPLACEMENT/A DVANTAGE - HMO) [id number] Lauren Rico [place] [id number] Lauren [place] 10/27/2023 1 [facility] (MEDICARE REPLACEMENT/A DVANTAGE - HMO) [id number] Lauren Rico [place] [id number] Lauren [place] 05/20/2024 1 [facility] (MEDICARE REPLACEMENT/A DVANTAGE - HMO) [id number] Lauren Rico [place] [id number] [facility] Notes Date Note Type Note Provider Name and Address Organization Details Recorded Time 4 text/html Pt is here for tingling and numbness in her hands and feetno pain in the neck or backno fever Roberto Gotti MD [address], [place], [address], [employer] 04/20/2023 16:03:35 4 text/html Has been gagging [...] dayLFT were high Roberto Gotti MD [address], [place], [address], [employer] 08/12/2023 15:16:52 4 text/html Patient is here [...] asa, no symptoms, [facility]03Meds- [...] TSH was high, it was changed to [place] thyroidMeds- [place] Thyroid 15mg daily, Osteoarthritis- on meloxicam and it helpsConstipation - otc helpsNeck pain- has arthritisOveractive bladder- using depend, gemtesa was too expensive,Meds- Oxybutynin ER 15 MG QDH/o hep c- seen GI, no treatment was recommended Roberto Gotti MD [address] [facility], [place], [address], [place] [facility] [employer] 09/02/2023 16:16:31 4 text/html Pt is here today for a hospital follow upRecord reviewed and discussed with the pt and sonShe [facility] for [facility].Labs, CT chest- r/o PE (NEG)CT abd/pelvis showed moderate diverticulosisHere with her son who would like a UA done, states that her urine has a strong odor and is real dark.SHE WAS TREYED WITH UTIALSO HAD CONSTIPATIONshe has pancytopenia, mildpoor appetite Roberto Gotti MD [address], [place], [address], [facility] 10/27/2023 14:57:45 5 text/html Patient is here today for her 4 month follow upPT IS NOT FASTING ( [facility] )Brought in her meds to go through, [...] asa, no symptoms, [facility] medsMeds- Atorvastatin 40mg dailyHTN- on meds [...] TSH was high, it was changed to [place] thyroid . HAS NOT BEEN TAKINGMeds- [place] Thyroid 15mg daily, Osteoarthritis- on meloxicam and it helps (DOES NOT THINK SHE TAKES)Constipation - otc helpsNeck pain- has arthritisOveractive bladder- using depend, gemtesa was too expensive,Does not think shes takingMeds- was on Oxybutynin ER 15 MG QDH/o hep c- seen GI, no treatment was recommended Pancytopenia- seen on recent labs, going to see hematology Roberto Gotti MD [address], [place], [address], [employer] 05/20/2024 13:09:43 OBGyn Episode No OBEpisode recorded.
--- OUTSIDE RECORDS SUMMARY | 2024-08-02 02:18 | XMS_ITS | Clinical Summary ---
Author Organization [employer] [address] [facility] Address [address] [facility] [place] [address] Care Team Providers Care Service Promoter Salesperson Name Role Phone Adrian Martin MD Primary Care Provider [phone] Allergies Active Allergy Reactions Criticality Noted Date [...] Encounters Date Type Department Care Team Description 07/15/2024 Telephone [facility] Oncology and Hematology - [address] [place] [phone] Alberto Gordon MD Wants to proceed with Dr. Gordon 06/30/2024 4:00 PM CDT Telephone Check Up [facility] Oncology and Hematology - [address] [place] [address] Alberto Gordon MD 06/23/2024 Orders Only [facility] Oncology and Hematology - [address] [place] [address] Alberto Gordon MD 06/01/2024 External Device Data [facility] ABSTRACTION Provider, Abstract 05/24/2024 External Device Data [facility] ABSTRACTION Provider, Abstract 05/24/2024 External Device Data [place] ABSTRACTION Provider, Abstract 05/24/2024 External Device Data [place]STRA[place] Provider, Abstract 05/17/2024 1:00 PM DIRECTOR CASE MANAGEMENT Office Visit [facility] Oncology and Hematology - [address] [place] [address] Alberto Gordon MD Chronic anemia (Primary Dx); [...] Comments Blood Pressure 151/88 05/17/2024 1:25 PM DIRECTOR CASE MANAGEMENT Pulse 81 05/17/2024 1:18 PM DIRECTOR CASE MANAGEMENT Temperature 36.6 C (97.8 F) 05/17/2024 1:18 PM DIRECTOR CASE MANAGEMENT Respiratory Rate 14 05/17/2024 1:18 PM DIRECTOR CASE MANAGEMENT Oxygen Saturation 93% 05/17/2024 1:18 PM DIRECTOR CASE MANAGEMENT Inhaled Oxygen Concentration - - Weight 58 kg (127 lb 12.8 oz) 05/17/2024 1:18 PM DIRECTOR CASE MANAGEMENT Height 162.6 cm (5' 4) 05/17/2024 1:18 PM DIRECTOR CASE MANAGEMENT Body Mass Index 21.94 05/17/2024 1:18 PM DIRECTOR CASE MANAGEMENT Plan of Treatment Upcoming Encounters Date Type Department Care Team (Late st Contact Info) Description 08/10/2024 2:30 PM CDT Office Visit [facility] Oncology and Hematology - [address] [facility] [address] [place] [address] Alberto Gordon MD [address] [facility] [address] [place] [address] Health Maintenance Due Date Last Done Comments DTAP/TDAP/TD VACCINES (1 - Tdap) 1965 PNEUMOCOCCAL VACCINE 50+ YEARS (1 of 2 - PCV) 03/19/19 66 ZOSTER VACCINE (1 of 2) 1996 RSV VACCINE (60+ or ) (1 - 1-dose 75+ series) 2021 OSTEOPOROSIS SCREENING 07/25/2022 07/25/2017 INFLUENZA VACCINE (#1) 2023 Medicare [place]vantage ([place]) Prev entative Visit/Annual Wellness Visit 04/13/2024 Procedures Procedure Name Priority Date/Time Associated Diagnosis Comments US ABDOMEN COMPLETE Routine 06/22/2024 11:20 AM CDT from Last 3 Months Results * US ABDOMEN COMPLETE (06/22/2024 11:20 AM CDT) Anatomical Region Laterality Modality Abdomen Ultrasound us Alberto Gordon MD US ORDERABLES Final Result from Last 3 Months Insurance [facility] [id number] Care Teams Service Promoter Salesperson Relationship Specialty Start Date End Date Adrian Martin MD [address] [place] [address] PCP - General Internal Medicine 08/05/18
--- OUTSIDE RECORDS SUMMARY | 2024-08-02 02:18 | XMS_ITS | Patient Health Record ---
Author Organization [employer] Address [address] [place] [address] Care Team Providers Care Client Service Representative Name Role Phone Khadar Larson MD Primary [...] Problem Status W/U Status Risk Notes Problem 254890609 History of colon polyps (Z86.010) Active confirmed She has had a colonoscopy with polyp removal in the last year by an outside provier with repeat recommended in 5 years. Report not available for review but will obtain. Problem 626784835 Alternating constipation and diarrhea (R19.8) Active confirmed [...] to start Metamucil. She was seen at [facility] in 09/2021 for dehydration and [...] [employer] Medicare Gold Advantage O [address] [place] [address] [id number] Lauren Cummings Self - patient is the insured Medical (General) History Medical History History ICD Code Colon polyp Liver Disease Stroke Depression Hypertension Coronary Artery Disease/Stents Hyperlipidemia Surgical History Surgery Date(Month/Year) Colonoscopy (Outside Provider) 2021 Left Knee Replacement Stent Placement Hospitalization History Reason Date(Month/Year) Dehydration, RLQ pain: [facility], [place] 09/2021
--- OUTSIDE RECORDS SUMMARY | 2024-08-02 02:18 | XMS_ITS | CONTINUITY OF CARE DOCUMENT ---
Author Name keon herbert Address Unknown Organization [facility] Address [address] [facility] [address] [place] [address] Phone [phone] Care Team Providers Care Solid Waste Disposal Manager Name Role Phone Jb Butts MD Unavailable [phone] Jb Butts MD Unavailable [phone] INSURANCE PROVIDERS Payer name Policy type / Coverage type [place] [employer] ID [id number] MEDICARE COMPLETE HMO Other [id number]
--- NOTE | 2024-08-02 07:30 | BM_PTH ---
PATIENT: Lauren Cummings [id number] AGE/SX: 79/F ROOM: RE08/02/[address]: Castillo Goodman MD : 1945 BED: DIS: 08/02/2024 SPEC #: [id number] RECD: 08/02/24 09:42 STATUS: [place] REQ #: [id number] BRIDGETTE: 08/02/24 07:[address]: Castillo Goodman DEPT: [facility] Bone Marrow RECD BY: Dilip Powers ENTERED: 08/02/24 09:43 SP TYPE: Bone Marro KIRSTIN DR: Roberto GottiMD Tissues: A - Bone Marrow Aspiration B - Bone Marrow Biopsy Procedures: Unstained Slides Hematoxylin and Eosin Stain Gross and Microscopic Level 4 Bone Marrow Smear Decalcification Iron Stain
[2024-08-02 07:49] LABS: Basophils Percent Auto 0.5 % (0.2-1.2); Eosinophils Percent Auto 1.1 % (0-4.4); Hematocrit 31.8 % (37.0-47.0); Immature Granulocyte Absolute 0.02 K/mm3 (0.00-0.031); Immature Granulocyte Percent A 0.5 % (0-0.5); Immature Platelet Fraction Pct 1.5 % (0.9-11.2); Lymphocytes Absolute Auto 1.13 K/mm3 (0.9-3.2); Lymphocytes Percent Auto 30.1 % (18.3-44.2); Mean Corpuscular HGB Conc 31.4 g/dl (32-36); Mean Corpuscular Hemoglobin 29.2 pg (26-34); Mean Platelet Volume 9.3 fl (7.4-10.4); Monocytes Absolute Auto 0.2 K/mm3 (0.1-0.6); Monocytes Percent Auto 5.9 % (2.6-8.5); Neutrophils Absolute Auto 2.3 K/mm3 (1.3-6.7); Neutrophils Percent Auto 61.9 % (45.5-73.1); Platelet Count Result 82 k/mm3 (150-375); Red Blood Count 3.42 M/mm3 (4.2-5.4); Red Cell Distribution Width 15.4 % (11.5-14.5); White Blood Count 3.8 K/mm3 (4.5-10.0)
[2024-08-02 08:05] VITALS: BP 160/77; PULSE 65; RESP 16; TEMP 37.1; BMI 23.3
[2024-08-02 08:08] LABS: INR 1.1; Prothrombin Time 14.9 Seconds (11.1-14.7)
--- NOTE | 2024-08-02 09:00 | P.SEDATION_ITS ---
Moderate Sedation Note-Pt Data Patient Data Diagnosis: pancytopenia Present Complaint: pancytopenia Procedure to be performed/Plan: bone marrow biopsy Allergies Allergy/AdvReac Type Severity Reaction Status Date / Time Penicillins Allergy Intermediate Rash Verified 08/02/24 07:34 Sulfa (Sulfonamide Allergy Intermediate Rash Verified 08/02/24 07:34 Antibiotics) Home Medications ?Medication ?Instructions ?Recorded ?Confirmed ?Type amlodipine 10 mg tablet 10 mg PO DAILY 08/02/24 08/02/24 History atorvastatin 40 mg tablet 40 mg PO QPM 08/02/24 08/02/24 History carvedilol 12.5 mg tablet 12.5 mg PO Q12H 08/02/24 08/02/24 History ciprofloxacin HCl 250 mg tablet mg 08/02/24 History losartan 100 mg tablet 100 mg PO DAILY 08/02/24 08/02/24 History pantoprazole 40 mg tablet,delayed 40 mg PO Q12H 08/02/24 08/02/24 History release sertraline 100 mg tablet 100 mg PO Q24H 08/02/24 08/02/24 History trazodone 150 mg tablet 150 mg PO HS 08/02/24 08/02/24 History Sedation/Anesthesia: No previous sedation/anesthesia problems (including family history). [facility] Social History Social History Smoking status: Never smoker Substance use: unknown Substance use type: does not use Living arrangements: with family Spiritual care concerns: No Mod Sed Physical Exam Physical Exam Pre Procedural Exam: Normal: Throat, Lungs, Heart Rate and Heart Rhythm and Variation: Appearance (frail) Hours since solid foods: 12 Hours since liquid intake: 12 Mallampati Classification: class 1 Internal Medicine - PN: Obj Da Vital Signs Vital Signs: Vital Signs - 24 hr 08/02/24 08:05 Temperature 98.7 F Pulse Rate 65 Respiratory Rate 16 Blood Pressure 160/77 H Oxygen Delivery Room Air Labs 08/02/24 07:41 Labs: Laboratory Results - last 24 hr 08/02/24 07:41 WBC 3.8 L RBC 3.42 L Hgb 10.0 L Hct 31.8 L MCV 93.0 MCH 29.2 MCHC 31.4 L RDW 15.4 H Plt Count 82 L MPV 9.3 Immature Gran % (Auto) 0.5 Neut % (Auto) 61.9 Lymph % (Auto) 30.1 [place] % (Auto) 5.9 Eos % (Auto) 1.1 Baso % (Auto) 0.5 Lymph # (Auto) 1.13 [place] # (Auto) 0.2 Eos # (Auto) 0.0 Baso # (Auto) 0.0 Abs Immat Gran (auto) 0.02 Absolute Neuts (auto) 2.3 Absolute Nucleated RBC 0.000 Nucleated RBC % 0.0 % Immature Plt Fraction 1.5 PT 14.9 H INR 1.1 ASA Classification/Sedation ASA Classification/Sedation ASA Class: II Emergent: No Risks: Risks, benefits and alternatives explained and patient/family accepted plan for sedation. Patient re-evaluated immediately prior to sedation.
[2024-08-02 09:45] VITALS: BP 147/71; PULSE 59; RESP 15; O2SAT 94
[2024-08-02 10:00] VITALS: BP 140/70; PULSE 56; RESP 14; O2SAT 95
[2024-08-02 10:15] VITALS: BP 143/63; PULSE 60; RESP 20; O2SAT 96
[2024-08-02 10:30] VITALS: BP 135/71; PULSE 57; RESP 18; O2SAT 96
== END 2024-08-02 11:00 | disposition home or self-care (01) ==
PROVIDERS: PCP Internal Medicine; Referring Provider Radiology Diagnostic Radiology; Visit Provider Radiology Diagnostic Radiology
DX: D61.818 Other pancytopenia (principal)
CPT/HCPCS: 36415; 38222; 85025; 85055; 85610; 88305; 88311; 88313; 88341; 88342; 88360; J2250; J3010

== ENCOUNTER 2025-03-26 19:27 | Inpatient (IN) | payer MEDICARE, SELFPAY ==
[2025-03-26] VITALS (10 sets, daily range): BP systolic 126–169; BP diastolic 84–104; PULSE 89–111; RESP 18–23; TEMP 36.8–37.3; O2SAT 93–99; BMI 26.8
--- NOTE | ~2025-03-26 | XR_ITS ---
Examination: XR chest 1V portable Clinical History: SOB Comparison: None Technique: Portable AP Findings: Cardiomegaly. Large right and small left pleural effusions. No acute bony abnormality. IMPRESSION: 1. Large right and small left pleural effusions. Reviewed, dictated and finalized at location R. TEGY INTERN
--- NOTE | ~2025-03-26 | XR_ITS ---
EXAMINATION: XR chest 1V portable DATE: 03/29/2025 13:16 INDICATION: Shortness of breath TECHNIQUE: A single frontal view of the chest was obtained. COMPARISON: March 26 chest x-ray FINDINGS: Increased obscuration of the lung bases right worse than left may represent increasing size of bilateral effusions right worse than left. Mid and upper lung luis are clear. Heart shadow mildly enlarged. IMPRESSION: 1. Suspect increasing bilateral effusions right worse than left. Reviewed, dictated and finalized at location A. GNA
--- NOTE | ~2025-03-26 | CT_ITS ---
EXAMINATION: CTA chest PE protocol DATE: 03/27/2025 00:49 INDICATION: Shortness of breath. TECHNIQUE: Computed tomography angiography (CTA) of the chest was performed with 100 mL Omnipaque-350 intravenous contrast timed to evaluate the pulmonary arteries. Coronal maximum intensity projection 3D-reconstructions were created by the technologist. Automated exposure control and iterative reconstruction technique were employed. The dose-length product was 371.98 mGy-cm. COMPARISON: None. FINDINGS: There are moderate-sized right and small left pleural effusions. There is septal thickening in the lungs, consistent mild pulmonary edema. There is atelectasis in the lungs with a dependent predominance. Calcified pulmonary nodules and calcified hilar and mediastinal lymph nodes are consistent with old granulomatous disease. Cardiomegaly is noted. No pericardial effusion. The central pulmonary arteries are enlarged, consistent with pulmonary arterial hypertension. There is no pulmonary embolus. There are changes of cholecystectomy. There is moderate thoracic spondylosis. There is a burst f racture of T12 with 2/5 loss of height and retropulsion of bone 3 mm into central spinal canal. There is a chronic burst fracture of L1. IMPRESSION: 1. No pulmonary embolus. 2. Mild pulmonary edema. 3. Moderate-sized right and small left pleural effusions. 4. Age-indeterminate T12 burst fracture. Reviewed, dictated and finalized at location E. T CONTROLLER
--- NOTE | ~2025-03-26 | US_ITS ---
EXAMINATION: US venous doppler [facility] DATE: 03/27/2025 10:56 INDICATION: Edema pain TECHNIQUE: Grayscale ultrasound images without and with compression and Doppler ultrasound images of the bilateral lower extremity veins were obtained. COMPARISON: None. NOTE: Examination significantly limited due to patient body habitus. FINDINGS: The visualized portions of right common femoral vein, profunda (deep) femoral vein, femoral vein, popliteal vein, peroneal veins, posterior tibial veins, and greater saphenous vein outflow are patent. The visualized portions of left common femoral vein, profunda femoral vein, femoral vein, popliteal vein, peroneal veins, posterior tibial veins, and greater saphenous vein outflow are patent. Prominent edema is noted in the right lower extremity. Prominent bowel seen in the right groin region. Probable lymph node in the left groin region measuring 9 x 5 x 5 mm. IMPRESSION: 1. No deep venous thrombosis seen with limitations noted above. 2. Probable inguinal hernia with herniated intestine in the right groin. 3. 9 mm reactive appearing lymph node in the left groin region. Extensive edema present; correlate clinically for evidence of inflammatory/infectious process such as cellulitis. Reviewed, dictated and finalized at location A. RLOCKER
--- NOTE | 2025-03-26 19:45 | ECG_ITS ---
Test Date: 2025-03-26 20:57:22 Measurements Intervals [place] Rate: 88 P: 53 OK: 178 QRS: -20 QRSD: 84 T: 45 QT: 330 QTc: 401 Interpretive Statements SINUS RHYTHM LOW QRS VOLTAGE IN LIMB LEADS CONSIDER ANTERIOR INFARCT, AGE INDETERMINATE BASELINE ARTIFACT- I, II, AVR, V1-V6 ABNORMAL ECG No previous ECG available for comparison Electronically Signed On 03-27-2025 06:17:53 TRACTOR TRAILER MECHANIC by Scout Rucker D.O.
--- NOTE | 2025-03-26 20:00 | ED.SOB ---
HPI - SOB/Dyspnea General Chief Complaint: Shortness of Breath/Dyspnea Stated Complaint: sob History of Present Illness HPI Narrative: 80-year-old female with a past medical history including hypertension, hyperlipidemia, GERD, pancytopenia being worked up for lymphoma. patient presents to the emergency department today in respiratory distress. She presents from alf facility where they were found to be 80% on room air requiring supplemental oxygen. Patient is not wear oxygen at baseline. Improved to 90% on 4 L nasal cannula prior to transfer by EMS. Patient is short of breath and visibly dyspneic. Denies any pain. Denies any headache, fever, chills. No cough during examination. No diarrhea or any other complaints at this time. Does have positive COVID exposure at the nursing facility according the EMS staff. Related Data Home Medications ?Medication ?Instructions ?Recorded ?Confirmed ?Last Taken ?Type amlodipine 10 mg tablet 10 mg PO DAILY 08/02/24 08/02/24 Unknown History atorvastatin 40 mg tablet 40 mg PO QPM 08/02/24 08/02/24 08/01/24 History carvedilol 12.5 mg tablet 12.5 mg PO Q12H 08/02/24 08/02/24 08/01/24 History ciprofloxacin HCl 250 mg tablet mg 08/02/24 Unknown History Held on 08/02/24. Instructions: Patient no longer taking losartan 100 mg tablet 100 mg PO DAILY 08/02/24 08/02/24 08/01/24 History pantoprazole 40 mg tablet,delayed 40 mg PO Q12H 08/02/24 08/02/24 Unknown History release sertraline 100 mg tablet 100 mg PO Q24H 08/02/24 08/02/24 Unknown History trazodone 150 mg tablet 150 mg PO HS 08/02/24 08/02/24 Unknown History Allergies Allergy/AdvReac Type Severity Reaction Status Date / Time Penicillins Allergy Intermediate Rash Verified 03/26/25 23:54 Sulfa (Sulfonamide Allergy Intermediate Rash Verified 03/26/25 23:54 Antibiotics) Review of Systems Review of Systems: as reviewed above in HPI All systems reviewed & are unremarkable except as noted in HPI and below PMFSH Social History Social History Smoking status: Former smoker Alcohol intake: former Substance use: former Substance use type: does not use Lack of Transportation: No Lack of Food: Never True Current Housing: I Have Housing Concerned About Future Housing: No Difficulty Paying Gas/Electric Bills: Decline to Answer Difficulty Paying for Meds: Decline to Answer Currently Unemployed: Decline to Answer Education: Decline to Answer Difficulty w/ Childcare or Family Care: Decline to Answer Living arrangements: with family Spiritual care concerns: No Exam Narrative: GENERAL: Ill-appearing, visibly dyspneic and tachypneic, awake and answering questions, dry mucous membranes HEAD: [Normocephalic, atraumatic.] EYES: [PERRLA and EOMI.] ENT: Nares clear, no rhinorrhea or epistaxis. Mucous membranes dry. NECK: Supple. CHEST: coarse basilar breath sounds, tachypneic and deep respirations HEART: [Regular rate and rhythm]. No murmur heard. [Normal peripheral pulses.] ABDOMEN: [Soft, nondistended], [nontender], [No rigidity or guarding] EXTREMITIES: Normal range of motion. [No edema.] SKIN: Warm, dry, no rash. NEURO: [No focal deficits]. Alert and oriented [x3.] PSYCH: [Normal mood and affect.] Course Vital Signs Vital signs: Vital Signs Temperature 37.3 C 03/26/25 19:27 Pulse Rate 103 H 03/26/25 19:27 Respiratory Rate 23 H 03/26/25 19:27 Blood Pressure 169/104 H 03/26/25 19:27 Pulse Oximetry 93 03/26/25 19:27 Oxygen Delivery Room Air 03/26/25 19:27 Temperature 36.8 C 03/26/25 22:15 Pulse Rate 89 03/26/25 22:34 Respiratory Rate 20 03/26/25 22:34 Blood Pressure 126/89 03/26/25 22:34 Pulse Oximetry 97 03/26/25 23:10 Oxygen Delivery Nasal Cannula 03/26/25 23:10 Oxygen Flow Rate 2 03/26/25 23:10 MDM MDM Narrative Medical decision making narrative: 80-year-old female with a past medical history including hypertension, hyperlipidemia, GERD, pancytopenia being worked up for lymphoma. patient presents to the emergency department today in respiratory distress. She presents from alf facility where they were found to be 80% on room air requiring supplemental oxygen. Patient is not wear oxygen at baseline. Improved to 90% on 4 L nasal cannula prior to transfer by EMS. Patient is short of breath and visibly dyspneic. Denies any pain. Denies any headache, fever, chills. No cough during examination. No diarrhea or any other complaints at this time. Does have positive COVID exposure at the nursing facility according the EMS staff. patient is ill-appearing, visibly dyspneic and tachypneic, feels warm to the touch with dry membranes. Concern for infectious process, sepsis, viral infection with COVID, flu, RSV given her chcf potential exposures. Possibility of pneumonia, urinary infection or bloodstream infection. She is tachycardic and tachypneic. She is hypoxemic. Respiratory support called to bedside for high-flow nasal cannula for assistance. She is DNR/ DNI per paperwork provided by facility. Patient is afebrile at this time. Given 30 cc/kg fluid bolus. Laboratory studies and imaging ordered. Patient's chest x-ray has suspicion for right middle lobe consolidation and pneumonia consistent with her difficulty breathing and hypoxia requiring supplemental oxygen. She is borderline febrile here on rectal temperature 99? F. vital signs improved with fluid resuscitation, antibiotics with azithromycin and Rocephin initiated, high-flow oxygen supplementation. Patient re-evaluated and feeling much better at this time. No longer tachypneic or tachycardic. 99% saturation on high-flow cannula. Discussed with the hospitalist Dr. Cage who accepted the patient to telemetry monitored bed at this time. Patient is DNR confirmed and medications fluids and admission orders placed. Differential Diagnosis Differential Diagnosis: Concern for infectious process, sepsis, viral infection with COVID, flu, RSV given her chcf potential exposures. Possibility of pneumonia, urinary infection or bloodstream infection. Lab Data MDM Lab Attestation statement: I personally reviewed the patient's lab results. 03/26/25 19:58 03/26/25 19:58 Labs: Lab Results 03/26/25 03/26/25 03/26/25 Range/Units 19:52 19:58 21:11 WBC 5.7 (4.5-10.0) K/mm3 RBC 3.37 L (4.2-5.4) M/mm3 Hgb 9.8 L (12.0-15.0) g/dL Hct 29.7 L (37.0-47.0) % MCV 88.1 (80-100) fl MCH 29.1 (26-34) pg MCHC 33.0 (32-36) g/dl RDW 16.5 H (11.5-14.5) % Plt Count 105 L (150-375) k/mm3 MPV 10.6 H (7.4-10.4) fl Immature Gran % (Auto) 0.2 (0-0.5) % Neut % (Auto) 79.5 H (45.5-73.1) % Lymph % (Auto) 13.9 L (18.3-44.2) % [place] % (Auto) 5.3 (2.6-8.5) % Eos % (Auto) 0.7 (0-4.4) % Baso % (Auto) 0.4 (0.2-1.2) % Lymph # (Auto) 0.79 L (0.9-3.2) K/mm3 [place] # (Auto) 0.3 (0.1-0.6) K/mm3 Eos # (Auto) 0.0 (0-0.3) K/mm3 Baso # (Auto) 0.0 (0.0-0.1) K/mm3 Abs Immat Gran (auto) 0.01 (0.00-0.031) K/mm3 Absolute Neuts (auto) 4.5 (1.3-6.7) K/mm3 Absolute Nucleated RBC 0.000 (0.0-0.012) K/mm3 Nucleated RBC % 0.0 (0.0-0.2) % PT 16.0 H (11.1-14.7) Seconds INR 1.3 APTT 26.2 (22.3-36.8) Seconds Sodium 132 L (137-145) mmol/L Potassium 5.3 H (3.4-5.0) mmol/L Chloride 109 H (98-107) mmol/L Carbon Dioxide 20 L (22-30) mmol/L Anion Gap 3 L (4-12) mmol/L BUN 22 H (7-17) mg/dL Creatinine 0.78 (0.7-1.0) mg/dL Estim Creat Clear Calc 46 ml/min Estimated GFR > 60 (59 - ) Glucose 110 (65-110) mg/dL Lactic Acid 0.6 L (0.7-2.0) mmol/L Calcium 8.1 L (8.4-10.2) mg/dL Total Bilirubin 0.6 (0.2-1.3) mg/dL AST 27 (14-36) U/L ALT 19 (6-35) U/L Alkaline Phosphatase 81 (38-126) U/L C-Reactive Protein 2.4 H (<1.0) mg/dL NT-Pro-B Natriuret Pep Cancelled 4700 H Total Protein 6.0 L (6.3-8.2) g/dL Albumin 2.7 L (3.5-5.1) g/dL Urine Color Dark yellow (Yellow) Urine Appearance Turbid H (Clear) Urine pH 8.0 (5.0-9.0) Ur Specific [place] 1.017 (1.001-1.035) Urine Protein 3+ H (Negative) mg/dL Urine Glucose (UA) Negative (Negative) mg/dL Urine Ketones Negative (Negative) mg/dL Ur Blood (Man) 3+ H (Negative) Urine Nitrate Negative (Negative) Urine Bilirubin Negative (Negative) Urine Urobilinogen 0.2 (<2.0) mg/dL Add Ur Microanalysis Reviewed Leukocyte Esterase Rfl 3+ H (Negative) JAYRO/UL Urine RBC 11-20 H (0-2) /hpf Urine WBC >100 H (0-3) /hpf Ur Squamous Epith Cells Many H (Few) /hpf Urine Bacteria 4+ /hpf Urine Casts >20 Influenza A (RT-PCR) Negative (Negative) Influenza B (RT-PCR) Negative (Negative) RSV (RT-PCR) Negative (Negative) SARS-CoV-2 RNA (RT-PCR) Negative (Negative) Imaging Data Attestation: I personally reviewed and interpreted this imaging study as follows: My impression: RML consolidation/PNA. fluid in the fissure Critical Care Time Critical Care Time Critical Care Time: Yes Time Type: Intermittent Initial evaluation, discuss w/ involved parties, attempting to gather old records: 15 minutes Documenting medical record: 5 minutes Review of results (EKG's, labs, imaging): 10 minutes Serial repeat bedside evaluation: 10 minutes Discussing case with multiple memebers of the care team and consultants: 5 minutes Total Critical Care Time: 45 Discharge Plan Discharge Clinical Impression: Pneumonia, Acute hypoxic respiratory failure, Hypoxemia requiring supplemental oxygen Patient Disposition: Still a Patient Condition: Stable
--- OUTSIDE RECORDS SUMMARY | 2025-03-26 20:00 | XMS_ITS | Patient Health Record ---
Author Organization [facility] Address [address] [facility] [address] [place] [address] Support Name Relationship Address Phone Lauren Cummings Guarantor Unknown [phone] Reason For Referral No Information Plan Of Treatment No Information
--- OUTSIDE RECORDS SUMMARY | 2025-03-26 20:00 | XMS_ITS | Encounter Summary ---
Author Organization [facility] Address [facility] [place] [address] Care Team Providers Care Fireboat Operator Name Role Phone Unavailable Primary Care Provider Unavailabl e Encounter Details Date Type Department Care Team (Late st Contact Info) Description 08/03/2024 Lab Requisition [facility] - Pathology Lab [address] [place] [id number] August Barraza MD [address] [address] Illness, unspecified Social History Tobacco Use Types Packs/Day Years Used Date Smoking Tobacco: Never Assessed Comments Unknown Sex and Gender Information Value Date Recorded Sex Assigned at Not on file Legal Sex Female 12:40 PM CDT Gender Identity Not on file Sexual Orientation Not on file documented as of this encounter Plan of Treatment Not on file documented as of this encounter Procedures Procedure Name Priority Date/Time Associated Diagnosis Comments BONE MARROW BIOPSY (STL) Routine 08/02/2024 9:00 AM CDT Illness, unspecified documented in this encounter Results * BONE MARROW BIOPSY (STL) (08/02/2024 9:00 AM CDT) Case Report Bone Marrow Patholog y Report Case: [id number] Authorizing Provider: August Barraza Collected: 08/02/2024 09:00 AM MD Bernabe Ordering Location: [facility] - Received: 08/03/2024 03:24 PM Pathology Lab Pathologist: Junior Limon MD Specimens: A) - Bone Marrow Clot B) - Bone Marrow Core 08/04/2024 5:57 PM [facility] Final Diagnosis Bone marrow, aspirate, clot section, and core biopsy: - Monoclonal B-cell population identified, negative for CD5 and CD10 (10%) - Hypercellular bone marrow for age (50% cellularity) - Trilineage hematopoiesis with no significant dyspoiesis 08/04/2024 5:57 PM [facility] at 1757 CDT AP Comment The combined morphological features, and results of immunohistochemistry and flow cytometry studies reveal the presence of monoclonal B-cell population in the bone marrow, with [id number]-[id number] immunoprofile. The count of monoclonal B-cells in the most recent peripheral blood is estimated to be below 0.5*10^9. 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 Alternatively, this represents bone marrow involvement by low-grade B-cell lymphoma, with marginal zone-like phenotype. Clinical correlation, and correlation with pending cytogenetics and molecular studies are recommended. 08/04/2024 5:57 PM [facility] Bone Marrow Aspirate Specimen quality: Adequate. Spicules: Present. Trilineage Hematopoiesis: Normal. Myeloid:Erythroid ratio: Normal. Myeloid Maturation: Normal. Erythroid Maturation: Normal, rare cells with nuclear contour irregularity, and rare binucleated cells. Megakaryocyte morphology: Normal, rare microcytic forms, and forms with hypo- or mono-lobation. Plasma cells and lymphocytes: Scattered seen. Storage iron (by special stain): Adequate. Sideroblastic iron (by special stain): No ring sideroblasts seen 08/04/2024 5:57 PM [facility] Bone Marrow Core Biopsy and Clot Section Description Specimen quality: Adequate, 22 mm of evaluable marrow. Cellularity: 50%, hypercellular for age. Blasts: Few, no aggregates. Trilineage Hematopoiesis: Present. Myeloid to Erythroid ratio: Normal. Myeloid maturation and localization: Normal. Erythroid maturation and localization: Normal. Megakaryocyte number: Increased. Megakaryocyte distribution: Normal. Lymphoid aggregates: Multiple seen, interstitial and paratrabecular, comprising of small mature lymphocytes, some with angulated nuclei. Highlighted by CD20 and PAX5; negative for CD5 and CD10, comprising of approximately 10% of the total nucleated marrow elements. CD3 and CD5 highlight the background T-cells. Plasma cells: Scattered seen. Storage iron (by special stain): Adequate. Sideroblastic iron (by special stain): No ring sideroblasts seen. Reticulum stain: No increased reticulin fibrosis (MF-0/3). Clot section marrow particles: Present. Clot section morphology: Similar to core biopsy specimen. Multiple lymphoid aggregates seen. Selected immunostains are performed to further evaluate, and reveal the following: The lymphoid aggregates are highlighted by PAX5 and CD20 with co-expression of BCL-2; negative for CD5, CD10, BCL6, cyclin D1, and SOX11. Ki-67 highlights less than 5% of the neoplastic cells. CD3 and CD5 highlight the background T-cells. Storage iron (by special stain): Adequate. Sideroblastic iron (by special stain): No ring sideroblasts seen. 08/04/2024 5:57 PM [facility] Flow Cytometry Summary Bone marrow, flow cytometric immunophenotypic analysis ([id number]): - Rare B-cells with mildly excessive kappa light chain expression (2% of the lymphocytes, 0.5% of total). - No diagnostic evidence of expanded T-cells, or acute leukemia. 08/04/2024 5:57 PM [facility] Clinical History 79-year-old female with pancytopenia. Flow cytometry study of peripheral blood reveals kappa restricted B-cell population, CD5 and CD10 negative (0.3% of leukocytes). 08/04/2024 5:57 PM [facility] Materials Received Received are 18 slide(s) and 3 block(s) labeled [id number] along with a copy of the outside pathology report. [place] [address]. All original materials are returned to the referring institution, along with a copy of our final report. 08/04/2024 5:57 PM [facility] Pathologist Location at [facility] 08/04/2024 5:57 PM [facility] Disclaimer The performance characteristics of all immunohistochemical and indirect immunofluorescence stains (if any) cited in this report were determined by the Histopathology Laboratory of [facility]. Some of these tests were developed by our own laboratory and have not been cleared or approved by the US Food and Drug Administration. The FDA does not require this test to go through premarket FDA review. These tests are used for clinical purposes. They should not be regarded as investigational or for research. This laboratory is certified under the Clinical Laboratory Improvement Amendments (CLIA) as qualified to perform high complexity clinical laboratory testing. This case has been personally reviewed and interpreted by the attending (teaching) pathologist. 08/04/2024 5:57 PM CDT [facility] Embedded Images 08/04/2024 5:57 PM CDT [facility] Pathology/Cytology BONE MARROW SPECIMEN / Unknown 08/02/2024 9:00 AM CDT 08/03/2024 3:24 PM CDT Miscellaneous samples (specimen) BONE MARROW SPECIMEN / Unknown 08/02/2024 9:00 AM CDT 08/03/2024 3:24 PM CDT August Barraza MD LAB - PATHOLOGY/CYT OLOGY ORDERABLES Final Result [facility] [address] [phone] documented in this encounter Visit Diagnoses Diagnosis Illness, unspecified documented in this encounter
--- OUTSIDE RECORDS SUMMARY | 2025-03-26 20:00 | XMS_ITS | Encounter Summary ---
Author Organization [facility] Address [facility]3 [facility] [place] [address] Care Team Providers Care Waiter/Waitress Economy Class Name Role Phone Unavailable Primary Care Provider Unavailabl e Encounter Details Date Type Department Care Team (Late st Contact Info) Description 08/02/2024 Lab Requisition [facility] - Pathology Lab [address] [place] [phone] August Barraza MD [address] [address] Other pancytopenia (HCC) Social History Tobacco Use Types Packs/Day Years [...] Procedure Name Priority Date/Time Associated Diagnosis Comments FLOW CYTOMETRY BONE MARROW Routine 08/02/2024 9:00 AM CDT Other pancytopenia (HCC) documented in this encounter Results * FLOW CYTOMETRY BONE MARROW (08/02/2024 9:00 AM CDT) Case Report Flow Cytometry Case: [id number] Authorizing Provider: August Barraza Collected: 08/02/2024 09:00 AM MD Bernabe Ordering Location: [facility] - Received: 08/02/2024 12:43 PM Pathology Lab Pathologist: Junior Limon MD Specimen: Bone Marrow 08/02/2024 3:53 PM CDT [facility] Final Diagnosis Bone marrow, flow cytometric immunophenotypic analysis: - Rare B-cells with mildly excessive kappa light chain expression (2% of the lymphocytes, 0.5% of total). - No diagnostic evidence of expanded T-cells, or acute leukemia. - See interpretation. 08/02/2024 3:53 PM T [facility] at 1553 CDT Flow Cytometry Interpretation Viability: 100% B-cells: rare, 2% of the lymphocytes (0.5% total), kappa:lambda ratio 5.6:1 (slightly kappa excessive). Correlation with morphology for clinical significance T-cells: no immunophenotypic aberrancy detected based on the markers examined Blasts: detected, 1%, express CD34, CD 13, and CD23 A bone marrow aspirate smear prepared from the flow cytometry specimen has been reviewed for software quality test engineer purposes. 08/02/2024 3:53 PM [facility] Flow Cytometry Results Differential Result Comment Flow Cell Count /uL 18,000 Total Viability % 100.0 Lymphocytes % 25 Dim CD45 Region % 8 Monocytes % 14 Granulocytes % 54 08/02/2024 3:53 PM CDT [facility] Reason for test Other pancytopenia (HCC) 284.19 08/02/2024 3:53 PM T [facility] Client Specimen ID # [id number] 08/02/2024 3:53 PM [facility] Number of markers 10 were performed. A-2 Flow CD10 A-3 Flow CD13 A-5 Flow CD20 A-1 Flow CD5 A-4 Flow CD19 A-6 Flow CD33 A-7 Flow CD34 A-8 Flow CD45 A-9 [place]+CD19+ A-10 Lambda+CD19+ 08/02/2024 3:53 PM CDT [facility] Pathologist Location at [facility] 08/02/2024 3:53 PM CDT [facility] Disclaimer Test performed at [facility], [address] [place] [address], [address]. *The established laboratory minimum viability is 70%. Values below the minimum may result in the failure to find an abnormal population of cells. This test was developed and its performance characteristics determined by the Flow Cytometry Laboratory. It has not been cleared by the [place] Food and Drug Administration (FDA). The FDA has determined that such clearance or approval is not necessary. This test is used for clinical purposes. It should not be regarded as investigational or for research. This laboratory is regulated under the Clinical Laboratory Improvement Amendments of 1998 (CLIA) as a qualified to perform high complexity clinical testing. 08/02/2024 3:53 PM CDT [facility] Embedded Images 3:53 PM CDT [facility] Pathology/Cytolo gy BONE MARROW SPECIMEN / Unknown 08/02/2024 9:00 AM CDT 08/02/2024 12:43 PM CDT August Barraza MD LAB - PATHOLOGY/CYT OLOGY ORDERABLES Final Result [facility] [address] [phone] documented in this encounter Visit Diagnoses Diagnosis Other pancytopenia (HCC) Other pancytopenia documented in this encounter
--- OUTSIDE RECORDS SUMMARY | 2025-03-26 20:00 | XMS_ITS | Clinical Summary ---
Author Organization [facility] Address [address] [place] [address] Care Team Providers Care Insurance Specialist Name Role Phone Unavailable Primary Care Provider Unavailabl e Source Comments [facility] Affiliates and Associated Physician Practices is amultiple site organization consisting of ambulatory clinics and hospital sitesin [place], [place], [place] and [place]. This disclosure is being madepursuant to the Care Everywhere program and may not contain all information available regarding this patient. Last updated 18.[facility] [place] Social History Tobacco Use Types Packs/Day Years Used Date Smoking Tobacco: Never Assessed Comments Unknown Sex and Gender Information Value Date Recorded Sex Assigned at Not on file Legal Sex Female 12:40 PM CDT Gender Identity Not on file Sexual Orientation Not on file Plan of Treatment Health Maintenance Due Date Last Done Comments BONE DENSITY TESTING 1945 HEPATITIS C SCREENING 03/14/1964 DTAP/TDAP/TD VACCINES (1 - Tdap) 1965 PNEUMOCOCCAL VACCINE 50+ (1 of 1 - PCV) 1996 ZOSTER VACCINE (1 of 2) 1996 Respiratory Syncytial Virus (RSV) Vaccine Pt: or over 60 yrs (1 - 1-dose 75+ series) 2021 DEPRESSION SCREENING 04/13/2024 MEDICARE AWV CALENDAR YEAR 2024 COVID-19 VACCINE ( - 2024-2 6 season) 2024 INFLUENZA VACCINE (#1) 2024 HEPATITIS B VACCINE Aged Out No longe r eligible based on patient's age to complete this topic HIB VACCINE Aged Out No longer eligi ble based on patient's age to complete this topic HPV VACCINE Aged Out No longer eligi ble based on patient's age to complete this topic MENINGOCOCCAL (Group B) VACC INE SHARED DECISION-MAKING Aged Out No longer eligibl e based on patient's age to complete this topic MENINGOCOCCAL GROUPS A/C/Y/W VACCINE Aged Out No longer eligible b ased on patient's age to complete this topic Insurance [facility] MANAGED MEDICARE ADV
--- OUTSIDE RECORDS SUMMARY | 2025-03-26 20:00 | XMS_ITS | Clinical Summary ---
Author Organization [facility] [address] [facility] Address [address] [facility] [place] [address] Care Team Providers Care Equine Intern Name Role Phone Adrian Martin MD Primary Care Provider [phone] Allergies Active Allergy Reactions Criticality Noted Date [...] Encounters Date Type Department Care Team Description 01/31/2025 External Device Data [facility] ABSTRACTION Provider, Abstract from Last 3 Months Family History Medical [...] Comments Blood Pressure 151/88 05/17/2024 1:25 PM HOSE SEAMER Pulse 81 05/17/2024 1:18 PM HOSE SEAMER Temperature 36.6 C (97.8 F) 05/17/2024 1:18 PM HOSE SEAMER Respiratory Rate 14 05/17/2024 1:18 PM HOSE SEAMER Oxygen Saturation 93% 05/17/2024 1:18 PM HOSE SEAMER Inhaled Oxygen Concentration - - Weight 58 kg (127 lb 12.8 oz) 05/17/2024 1:18 PM HOSE SEAMER Height 162.6 cm (5' 4) 05/17/2024 1:18 PM HOSE SEAMER Body Mass Index 21.94 05/17/2024 1:18 PM HOSE SEAMER Plan of Treatment Health Maintenance Due Date Last Done Comments DTAP/TDAP/TD VACCINES (1 - Tdap) 1965 PNEUMOCOCCAL VACCINE 50+ YEARS (1 of 2 - PCV) 03/19/19 65 ZOSTER VACCINE (1 of 2) 1996 RSV VACCINE (60+ or ) (1 - 1-dose 75+ series) 2021 OSTEOPOROSIS SCREENING 07/25/2022 07/25/2017 INFLUENZA VACCINE (#1) [address] [place] [id number] Care Teams Equine Intern Relationship Specialty Start Date End Date Adrian Martin MD [address] [place] [address] PCP - General Internal Medicine 08/05/18
[2025-03-26 20:04] LABS: Hematocrit 29.7 % (37.0-47.0); Hemoglobin 9.8 g/dL (12.0-15.0); Immature Granulocyte Percent A 0.2 % (0-0.5); Lymphocytes Absolute Auto 0.79 K/mm3 (0.9-3.2); Mean Corpuscular HGB Conc 33.0 g/dl (32-36); Mean Corpuscular Hemoglobin 29.1 pg (26-34); Mean Corpuscular Volume 88.1 fl (80-100); Nucleated Red Blood Cells Absolute Auto 0.000 K/mm3 (0.0-0.012); Nucleated Red Blood Cells Perc 0.0 % (0.0-0.2); Platelet Count Result 105 k/mm3 (150-375); Red Blood Count 3.37 M/mm3 (4.2-5.4); White Blood Count 5.7 K/mm3 (4.5-10.0)
[2025-03-26] MEDS: LACTATED RINGERS 100 ML 999 ML IV CONT (20:16)
[2025-03-26] MEDS: LACTATED RINGERS 1,000 ML 999 ML IV CONT ×2 (20:16)
[2025-03-26 20:20] LABS: Alanine Aminotransferase 19 U/L (6-35); Albumin Level 2.7 g/dL (3.5-5.1); Alkaline Phosphatase 81 U/L (38-126); Anion Gap 3 mmol/L (4-12); Aspartate Amino Transferase 27 U/L (14-36); Bilirubin,Total 0.6 mg/dL (0.2-1.3); Blood Urea Nitrogen 22 mg/dL (7-17); CRP 2.4 mg/dL (<1.0); Calcium 8.1 mg/dL (8.4-10.2); Carbon Dioxide 20 mmol/L (22-30); Chloride 109 mmol/L (98-107); Estimated CRCL calculation 46 ml/min; Estimated Glomerular Filt Rate > 60; Glucose 110 mg/dL (65-110); Potassium 5.3 mmol/L (3.4-5.0); Sodium 132 mmol/L (137-145); Total Protein 6.0 g/dL (6.3-8.2)
[2025-03-26 20:23] LABS: INR 1.3; Partial Thromboplastin Time 26.2 Seconds (22.3-36.8); Prothrombin Time 16.0 Seconds (11.1-14.7)
[2025-03-26 20:40] LABS: Influenza A QL RT-PCR Negative (Negative); Influenza B QL RT-PCR Negative (Negative); RSV RNA, RT-PCR Negative (Negative); SARS-CoV-2 RNA PCR Negative (Negative)
[2025-03-26] MEDS: cefTRIAXone 1 GM in SODIUM CHLORIDE 0.9% IV 50 ML 100 ML IVPB (21:13)
--- NOTE | 2025-03-26 21:24 | PC.NURSE ---
This RN called pt evelin Monson and per pt request. This RN did not receive an answer and voicemail box was full.
[2025-03-26 21:45] LABS: Add Urine Microscopic? YES; Appearance Urine Turbid (Clear); Glucose Urine UA Negative (Negative); Leukocyte Esterase Ur 3+ LEU/UL (Negative); Need Manual Microscopic Reviewed; Nitrate Urine Negative (Negative); Non Pathogenic Casts >20; Specific Grav Ur 1.017 (1.001-1.035)
[2025-03-26] MEDS: AZITHROMYCIN IV 500 MG in SODIUM CHLORIDE 0.9% IV 250 ML IVPB (21:48)
--- NOTE | 2025-03-26 22:03 | PM.IMHP2 ---
H&P: HPI History of Present Illness Date/Time: 03/26/25 22:03 Chief Complaint: Shortness of breath hypoxia Narrative: This is a 80-year-old female who presents to the ED with shortness of breath from her assisted facility. At the assisted facility she was found to be hypoxic with 80% on room air requiring supplemental oxygen. She does not wear oxygen at baseline. Her oxygenation improved to 90% on 4 L oxygen via nasal cannula. She was visibly short of breath on arrival. Denied any chest pain. No fever chills. No cough. No abdominal pain nausea vomiting. She had exposure to COVID at the nursing facility as reported by the EMS staff. Patient is a poor historian In the ED she was ill-appearing visibly dyspneic temperature was borderline at 99. Mildly tachycardic and hypertensive. Laboratory studies showed WBC of 5.7 hemoglobin of 9.8 platelet count of 105. INR 1.3 sodium 132 potassium 5.3 chloride 109 bicarbonate 20 BUN 22 creatinine 0.78 blood glucose 110 lactate of 0.6 calcium of 8.1 CRP was 2.4 LFT were normal. Urinalysis with more than 100 WBC with 3+ leukocyte esterase negative nitrate. Influenza RSV COVID swab was negative. EKG showed sinus rhythm with nonspecific ST-T changes Chest x-ray showed right lower lobe pneumonia. She has been started on ceftriaxone azithromycin She is admitted for further treatment. Review of Systems Review of Systems: - CONSTITUTIONAL: Denies weight loss, fever and chills. - HEENT: Denies changes in vision and hearing - RESPIRATORY: Reports SOB and cough. - CV: Denies palpitations and CP. - GI: Denies abdominal pain, nausea, vomiting and diarrhea. - : Denies dysuria and urinary frequency. - MSK: Denies myalgia and joint pain. - SKIN: Denies rash and pruritus. - NEUROLOGICAL: Denies headache and syncope. - PSYCHIATRIC: Denies recent changes in mood. Denies anxiety and depression. [facility] Social History Social History Smoking status: Never smoker Substance use: unknown Substance use type: does not use Living arrangements: with family Spiritual care concerns: No Meds Home Medications and Allergies Home Medications ?Medication ?Instructions ?Recorded ?Confirmed ?Type amlodipine 10 mg tablet 10 mg PO DAILY 08/02/24 08/02/24 History atorvastatin 40 mg tablet 40 mg PO QPM 08/02/24 08/02/24 History carvedilol 12.5 mg tablet 12.5 mg PO Q12H 08/02/24 08/02/24 History ciprofloxacin HCl 250 mg tablet mg 08/02/24 History Held on 08/02/24. Instructions: Patient no longer taking losartan 100 mg tablet 100 mg PO DAILY 08/02/24 08/02/24 History pantoprazole 40 mg tablet,delayed 40 mg PO Q12H 08/02/24 08/02/24 History release sertraline 100 mg tablet 100 mg PO Q24H 08/02/24 08/02/24 History trazodone 150 mg tablet 150 mg PO HS 08/02/24 08/02/24 History Allergies Allergy/AdvReac Type Severity Reaction Status Date / Time Penicillins Allergy Intermediate Rash Verified 08/02/24 07:34 Sulfa (Sulfonamide Allergy Intermediate Rash Verified 08/02/24 07:34 Antibiotics) Vital Signs Vital Signs - 24 hr 03/26/25 19:27 03/26/25 19:42 03/26/25 19:43 Temperature 99.2 F Pulse Rate 103 H 111 H Respiratory Rate 23 H Blood Pressure 169/104 H Pulse Oximetry 93 94 Oxygen Delivery Room Air Room Air Oxygen Flow Rate 03/26/25 20:04 03/26/25 21:22 03/26/25 21:23 Temperature Pulse Rate 94 90 Respiratory Rate 21 H 20 Blood Pressure 147/84 H Pulse Oximetry 99 96 98 Oxygen Delivery High Flow Nasal Cannula Oxygen Flow Rate 1 03/26/25 21:30 Temperature 98.3 F Pulse Rate 89 Respiratory Rate 21 H Blood Pressure 147/84 H Pulse Oximetry 99 Oxygen Delivery Oxygen Flow Rate Exam Narrative: GENERAL: Chronically Ill-appearing, awake and answering questions, HEAD: [Normocephalic, atraumatic.] EYES: [PERRLA and EOMI.] ENT: Nares clear, no rhinorrhea or epistaxis. Mucous membranes dry. NECK: Supple. CHEST: coarse basilar breath sounds, no respiratory distress HEART: [Regular rate and rhythm]. No murmur heard. [Normal peripheral pulses.] ABDOMEN: [Soft, nondistended], [nontender], [No rigidity or guarding] EXTREMITIES: Normal range of motion. Dependent edema noted SKIN: Warm, dry, no rash. NEURO: [No focal deficits]. Alert and oriented [x3.] Generalized weakness PSYCH: [Normal mood and affect.] Results Labs Labs: Short CBC 03/26/25 Range/Units 19:58 WBC 5.7 (4.5-10.0) K/mm3 Hgb 9.8 L (12.0-15.0) g/dL Hct 29.7 L (37.0-47.0) % Plt Count 105 L (150-375) k/mm3 BMP 03/26/25 19:58 Sodium 132 L Potassium 5.3 H Chloride 109 H Carbon Dioxide 20 L BUN 22 H Creatinine 0.78 Glucose 110 Calcium 8.1 L Liver Function 03/26/25 Range/Units 19:58 Total Bilirubin 0.6 (0.2-1.3) mg/dL AST 27 (14-36) U/L ALT 19 (6-35) U/L Alkaline Phosphatase 81 (38-126) U/L Albumin 2.7 L (3.5-5.1) g/dL Urine 03/26/25 Range/Units 21:11 Urine Color Dark yellow (Yellow) Urine Appearance Turbid H (Clear) Urine pH 8.0 (5.0-9.0) Ur Specific [place] 1.017 (1.001-1.035) Urine Protein 3+ H (Negative) mg/dL Urine Glucose (UA) Negative (Negative) mg/dL Assessment and Plan Assessment and plan (1) Pneumonia: Code(s): J18.9 - Pneumonia, unspecified organism Status: Acute (2) Acute hypoxic respiratory failure: Code(s): J96.01 - Acute respiratory failure with hypoxia Status: Acute (3) Pancytopenia: Code(s): D61.818 - Other pancytopenia Status: Acute (4) Hypertension: Code(s): I10 - Essential (primary) hypertension Status: Acute (5) Hyperlipidemia: Code(s): E78.5 - Hyperlipidemia, unspecified Status: Acute (6) GERD (gastroesophageal reflux disease): Code(s): K21.9 - Gastro-esophageal reflux disease without esophagitis Status: Acute Plan This is a 80-year-old female who presents to the ED with shortness of breath from her and assisted facility. At the assisted facility she was found to be hypoxic with 80% on room air requiring supplemental oxygen. She does not wear oxygen at baseline. Her oxygenation improved to 90% on 4 L oxygen via nasal cannula. She was visibly short of breath on arrival. Denied any chest pain. No fever chills. No cough. No abdominal pain nausea vomiting. She had exposure to COVID at the nursing facility as reported by the EMS staff. In the ED she was ill-appearing visibly dyspneic temperature was borderline at 99. Mildly tachycardic and hypertensive. Laboratory studies showed WBC of 5.7 hemoglobin of 9.8 platelet count of 105. INR 1.3 sodium 132 potassium 5.3 chloride 109 bicarbonate 20 BUN 22 creatinine 0.78 blood glucose 110 lactate of 0.6 calcium of 8.1 CRP was 2.4 LFT were normal. Urinalysis with more than 100 WBC with 3+ leukocyte esterase negative nitrate. Influenza RSV COVID swab was negative. EKG showed sinus rhythm with nonspecific ST-T changes Chest x-ray showed right lower lobe pneumonia. She has been started on ceftriaxone azithromycin She is admitted for further treatment. Acute hypoxic respiratory failure oxygen supplementation Right lower lobe Pneumonia will get CT chest to further evaluate. UTI ceftriaxone Sepsis IV fluid bolus received in the ER she has significant dependent edema will stop further IV fluid. Venous duplex and CT chest will be ordered to further evaluate her respiratory distress. Will check BNP Hypertension Hyperlipidemia GERD Pancytopenia follows with Heme-Onc. DVT prophylaxis Lovenox Code status do not resuscitate Hospitalist MIPS Advance Care Plan I have confirmed that the patient's Advanced Care Plan is present, code status is documented, or surrogate decision maker is listed in patient medical record.: Yes Medication Reconciliation I have utilized all available resources to obtain, update and review the patients current medications (includes all prescriptions, OTC, herbals, cannabis, and nutritional supplements).: Yes
[2025-03-26] MEDS: LACTATED RINGERS 1,000 ML 100 ML IV CONT (22:20)
--- NOTE | 2025-03-26 22:38 | WPCEDHO ---
ED Hand Off Checklist All vitals saved:yes IV Site documented:yes All med administrations documented:yes Triage Note Triage Note pt to ED via EMS from [facility] of 03/26/25 19:27 [place] w c/o SOB since about 1800. pt is not normally on O2, but staff found pt with O2 in the 80's on RA. Pt was then placed on 4 L NC and went up to mid 90's. In room pt has labored breathing . + COVID exposure at facility Allergies Penicillins Allergy (Intermediate, Verified 08/02/24 07:34) Rash Sulfa (Sulfonamide Antibiotics) Allergy (Intermediate, Verified 08/02/24 07:34) Rash Active Medications including assessments/comments Lactated Ringer's (Lr - Lactated Ringers Iv) 1,000 mls @ 100 mls/hr IV CONT .Q10H STEVE Last Admin: 03/26/25 22:20 Dose: 100 mls/hr Documented By: EMW Infusion/Titration Document 03/26/25 22:20 EMW (Rec: 03/26/25 22:20 EMW [id number]) Intake IV Site Peripheral Access Right Wrist Container Volume 1,000 Waste Amount 0 Dosing Infusion Rate 100 Cumulative Dose Not Applicable Increase/Decrease Started Elapsed Time Elapsed Time ( 0m minutes) Administered/Completed Medications Discontinued Medications Ceftriaxone Sodium (Ceftriaxone 1 Gm Vial) Confirm Administered Dose 1 gm .ROUTE .STK-MED ONE Stop: 03/26/25 21:11 Last Admin: 03/26/25 21:19 Dose: Not Given Documented By: EMW Non-Admin Reason: Duplicate Dose Lactated Ringer's (Lr - Lactated Ringers Iv) 1,000 mls @ 999 mls/hr IV CONT .Q1H1M STA Stop: 03/26/25 20:50 Last Infusion: 03/26/25 21:20 Dose: Infused Documented By: Admin: 03/26/25 20:16 Dose: 999 mls/hr Documented By: EMW Lactated Ringer's (Lr - Lactated Ringers Iv) 1,000 mls @ 999 mls/hr IV CONT .Q1H1M STA Stop: 03/26/25 20:50 Last Infusion: 03/26/25 21:19 Dose: Infused Documented By: Admin: 03/26/25 20:16 Dose: 999 mls/hr Documented By: EMW Lactated Ringer's (Lr - Lactated Ringers Iv) 100 mls @ 999 mls/hr IV CONT .Q6M STA Stop: 03/26/25 19:55 Last Infusion: 03/26/25 20:23 Dose: Infused Documented By: Admin: 03/26/25 20:16 Dose: 999 mls/hr Documented By: SCOT Azithromycin 500 mg/ Sodium (Chloride) 250 mls @ 250 mls/hr IVPB ONCE ONE Stop: 03/26/25 21:08 Last Admin: 03/26/25 21:48 Dose: 250 mls/hr Documented By: SUSANW Ceftriaxone Sodium 1 gm/ (Sodium Chloride) 50 mls @ 100 mls/hr IVPB ONCE STA Stop: 03/26/25 20:38 Last Infusion: 03/26/25 21:47 Dose: Infused Documented By: Admin: 03/26/25 21:13 Dose: 100 mls/hr Documented By: SCOT Sterile Water (Water For Irrigation, Sterile 500 Ml Bottle) Confirm Administered Dose 500 ml .ROUTE .STK-MED ONE Stop: 03/26/25 20:01 Last Admin: 03/26/25 21:12 Dose: Not Given Documented By: SCOT Non-Admin Reason: respiratory Notes 03/26/25 21:24 Nurse Note by Betsy George This RN called pt evelin Monson and per pt request. This RN did not receive an answer and voicemail box was full. Initialized on 03/26/25 21:24 - END OF NOTE Interventions/Assessments Cardiac Monitoring Start: 03/26/25 19:22 Freq: Status: Active Protocol: Document 03/26/25 19:42 EMW (Rec: 03/26/25 19:43 EMW [id number]) Mechanical Maintenance Engineer Assessment Mechanical Maintenance Engineer Yes Applied Pulse Rate (60-100) 111 H IV / Saline Lock, Insert Start: 03/26/25 19:22 Freq: Status: Active Protocol: Document 03/26/25 20:16 EMW (Rec: 03/26/25 20:16 EMW [id number]) IV Assessment Peripheral Access Right Wrist IV Catheter Access Initiated IV Insertion Date 03/26/25 IV Insertion Time 20:16 Catheter Gauge 18 IV Insertion 1 Attempts Ultrasound Used for No Placement IV Site Assessment WNL IV Care and WNL Maintenance PA: Cardiovascular Assessment Start: 03/26/25 19:22 Freq: Status: Active Protocol: Document 03/26/25 19:43 EMW (Rec: 03/26/25 19:45 EMW [id number]) Cardiovascular Assessment Cardiovascular Dyspnea Symptoms Skin Description Warm PA: Neurological Assessment Start: 03/26/25 22:02 Freq: Status: Active Protocol: Document 03/26/25 22:03 EMW (Rec: 03/26/25 22:04 EMW [id number]) Neurological Assessment Level of Awake Consciousness Orientation Oriented to Person,Oriented to Place,Oriented to Time Hallucination Type None Unable to Redirect No Behavior Behavior Appropriate,Cooperative,Fatigued Ability to Maintain Unable to Assess Balance Errol Coma Scale Eyes Open Verbal Oriented and Alert Motor Follows Commands [place] Coma Total 15 Score PA: Respiratory Assessment Start: 03/26/25 19:22 Freq: Status: Active Protocol: Document 03/26/25 19:43 EMW (Rec: 03/26/25 19:45 EMW [id number]) Respiratory Assessment Symptoms Congestion,Shortness of Breath at Rest,Shortness of Breath With Exertion Effort Abdominal Breathing,Labored,Short of Breath Pattern Tachypnea Depth Shallow Cough Description Acute Cough Frequency Intermittent Oxygen Delivery Oxygen Delivery Room Air Pulse Oximetry (90- 94 100) Last Vital Signs Temperature 98.3 F 03/26/25 22:15 Pulse Rate 89 03/26/25 22:34 Respiratory Rate 20 03/26/25 22:34 Pulse Oximetry 99 03/26/25 22:34 Blood Pressure 126/89 03/26/25 22:34 Blood Pressure Mean 101 03/26/25 22:34 Blood Pressure Position Sitting 03/26/25 22:34 Oxygen Delivery High Flow Nasal Cannula 03/26/25 20:04 Oxygen Flow Rate 1 03/26/25 20:04 Weight 66.7 kg 03/26/25 19:27 Last Result - Abnormals Only RBC 3.37 M/mm3 (4.2-5.4) L 03/26/25 19:58 Hgb 9.8 g/dL (12.0-15.0) L 03/26/25 19:58 Hct 29.7 % (37.0-47.0) L 03/26/25 19:58 RDW 16.5 % (11.5-14.5) H 03/26/25 19:58 Plt Count 105 k/mm3 (150-375) L 03/26/25 19:58 MPV 10.6 fl (7.4-10.4) H 03/26/25 19:58 Neut % (Auto) 79.5 % (45.5-73.1) H 03/26/25 19:58 Lymph % (Auto) 13.9 % (18.3-44.2) L 03/26/25 19:58 Lymph # (Auto) 0.79 K/mm3 (0.9-3.2) L 03/26/25 19:58 PT 16.0 Seconds (11.1-14.7) H 03/26/25 19:58 Sodium 132 mmol/L (137-145) L 03/26/25 19:58 Potassium 5.3 mmol/L (3.4-5.0) H 03/26/25 19:58 Chloride 109 mmol/L (98-107) H 03/26/25 19:58 Carbon Dioxide 20 mmol/L (22-30) L 03/26/25 19:58 Anion Gap 3 mmol/L (4-12) L 03/26/25 19:58 BUN 22 mg/dL (7-17) H 03/26/25 19:58 Lactic Acid 0.6 mmol/L (0.7-2.0) L 03/26/25 19:58 Calcium 8.1 mg/dL (8.4-10.2) L 03/26/25 19:58 C-Reactive Protein 2.4 mg/dL (<1.0) H 03/26/25 19:58 Total Protein 6.0 g/dL (6.3-8.2) L 03/26/25 19:58 Albumin 2.7 g/dL (3.5-5.1) L 03/26/25 19:58 Urine Appearance Turbid (Clear) H 03/26/25 21:11 Urine Protein 3+ mg/dL (Negative) H 03/26/25 21:11 Ur Blood (Man) 3+ (Negative) H 03/26/25 21:11 Leukocyte Esterase Rfl 3+ JAYRO/UL (Negative) H 03/26/25 21:11 Urine RBC 11-20 /hpf (0-2) H 03/26/25 21:11 Urine WBC >100 /hpf (0-3) H 03/26/25 21:11 Ur Squamous Epith Cells Many /hpf (Few) H 03/26/25 21:11 Most Recent Suicide Severity Rating Suicide Severity Rating NO RISK INDICATED 03/26/25 19:27
--- NOTE | 2025-03-26 23:26 | PC.NURSE ---
This RN called [facility] and gave update on pt status.
[2025-03-26 23:45] LABS: NT Pro B Type Natriuretic Pept 4700 pg/mL (19.9-100)
[2025-03-27] VITALS (19 sets, daily range): BP systolic 123–145; BP diastolic 66–87; PULSE 65–86; RESP 12–20; TEMP 36.2–36.8; O2SAT 94–99; BMI 11.0
--- NOTE | 2025-03-27 | ECHO_ITS ---
Patient Info Name: Lauren Cummings Age: 80 years : 1945 Gender: Female Ht: 62 in Wt: 146 lbs BSA: 1.72 m2 HR: 67 bpm BP: 145 / 76 mmHg Technical Quality: Excellent Exam Date: 03/27/2025 2:48 PM Patient Status: I Admit Date: 03/27/2025 Exam Type: CA echo doppler color flow Complete two-dimensional, color flow and Doppler transthoracic echocardiogram is performed. Staff Referring Physician: Umair Bob Bottom Scrubber: Rhonda Jung Attending Provider: Umair Bob Summary 1. Complete two-dimensional, color flow and Doppler transthoracic echocardiogram is performed. 2. The left ventricle is normal in size with mildly reduced systolic function. There is mild concentric left ventricular hypertrophy. The left ventricular ejection fraction is visually estimated to be 40-45%. The inferior wall and inferoseptum are akinetic. 3. The right ventricle is normal in size and systolic function. 4. The left atrium is severely dilated. 5. The tricuspid valve is normal. There is moderate tricuspid regurgitation. Left Ventricle The left ventricle is normal in size with mildly reduced systolic function. There is mild concentric left ventricular hypertrophy. The left ventricular ejection fraction is visually estimated to be 40-45%. The inferior wall and inferoseptum are akinetic. Right Ventricle The right ventricle is normal in size and systolic function. Left Atria The left atrium is severely dilated. Right Atria The right atrium is dilated. Aortic Valve The aortic valve is trileaflet and opens well. There is no aortic regurgitation. Pulmonic Valve The pulmonic valve is grossly normal. There is no pulmonic valve regurgitation. Mitral Valve The mitral valve is normal. There is trace mitral regurgitation. Tricuspid Valve The tricuspid valve is normal. There is moderate tricuspid regurgitation. Aorta The aortic root at the level of the sinus of Valsalva measures 2.9 cm in diameter. Left Ventricular Outflow Tract Name Value Normal LVOT 2D LVOT Diameter 1.9 cm LVOT Doppler LVOT Peak Velocity 82 cm/s LVOT Peak Gradient 3 mmHg LVOT Mean Gradient 2 mmHg LVOT VTI 18 cm LVOT VTI/AV VTI Ratio 0.6 LVOT Stroke Volume 47 ml LVOT CO 3.3 l/min LVOT CI 1.9 l/min/m2 Pulmonic Valve Name Value Normal PV Doppler PV Peak Velocity 97 cm/s PV Peak Gradient 4 mmHg Mitral Valve Name Value Normal MV Doppler MV Peak Gradient 2 mmHg MV Mean Gradient 2 mmHg MV Area (Cont Eq VTI) 2.3 cm2 MV Diastolic Function MV E Peak Velocity 84 cm/s MV A Peak Velocity 88 cm/s MV E/A 1.0 MV Decel Time (PW) 217 ms MV Annular TDI MV E/e' (Septal) 17.4 MV E/e' (Lateral) 11.1 MV E/e' (Average) 14.2 Tricuspid Valve Name Value Normal TV Regurgitation Doppler TR Peak Velocity 342 cm/s TR Peak Gradient 42 mmHg Estimated PAP/RSVP RA Pressure 10 mmHg <=5 PA Systolic Pressure 57 mmHg <36 RV Systolic Pressure 57 mmHg <36 TV Annular TDI TV Lateral Ana s' Velocity 13.9 cm/s >=9.5 Aortic Valve Name Value Normal AV Doppler AV Peak Velocity 142 cm/s AV Peak Gradient 8 mmHg AV Mean Gradient 5 mmHg AV VTI 29 cm AV Area (Cont Eq VTI) 1.6 cm2 >=3.0 AV Area (Cont Eq Jabier) 1.6 cm2 AV DI (Jabier) 0.58 AV Regurgitation 2D LVOT Area 2.7 cm2 Ventricles Name Value Normal LV Dimensions 2D/MM IVS Diastolic Thickness (2D) 1.2 cm 0.6-1.0 LVID Diastole (2D) 4.6 cm 3.8-5.2 LVIW Diastolic Thickness (2D) 1.1 cm 0.6-0.9 LVID Systole (2D) 3.2 cm 2.2-3.5 LVOT Diameter 1.9 cm LV Mass (2D Cubed) 196.43 g 67.00-162.00 LV Mass Index (2D Cubed) 114 g/m2 43-95 Relative Wall Thickness (2D) 0.47 <=0.42 LV Fractional Shortening/Ejection Fraction 2D/MM LV Fractional Shortening (2D) 30 % 27-45 LV EF (2D Teichholz) 57 % LV Diastolic Volume (4C MOD) 85 ml LV EF (4C MOD) 32 % LV Diastolic Volume (2C MOD) 91 ml LV EF (2C MOD) 46 % LV Diastolic Volume (BP MOD) 89 ml 46-106 LV Diastolic Volume Index (BP MOD) 52 ml/m2 29-61 LV Systolic Volume (BP MOD) 54 ml 14-42 LV Systolic Volume Index (BP MOD) 31 ml/m2 8-24 LV EF (BP MOD) 40 % 54-74 LV Diastolic Length (4C) 8.3 cm LV Systolic Length (4C) 7.1 cm LV Stroke Volume (4C MOD) 27 ml Atria Name Value Normal LA Dimensions LA Volume (4C A-L) 118 ml LA Volume (BP A-L) 99 ml RA Dimensions RA Systolic Major [place] Length (4C) 5.1 cm 2.2-2.8 RA Area (4C) 16.2 cm2 <=18.0 Report Signatures
[2025-03-27] MEDS: SODIUM CHLORIDE 0.9% IV 1,000 ML 100 ML IV CONT (00:54)
[2025-03-27] MEDS: IPRATROPIUM 0.5 MG/ALBUTEROL SULFATE 2.5 MG (BASE) AMPUL.NEB 3 ML INHALATION ×4 (01:10→19:52)
[2025-03-27 06:07] LABS: Hematocrit 25.0 % (37.0-47.0); Hemoglobin 7.8 g/dL (12.0-15.0); Immature Granulocyte Percent A 0.7 % (0-0.5); Immature Platelet Fraction Pct 1.1 % (0.9-11.2); Lymphocytes Absolute Auto 0.65 K/mm3 (0.9-3.2); Mean Corpuscular HGB Conc 31.2 g/dl (32-36); Mean Corpuscular Hemoglobin 28.8 pg (26-34); Mean Corpuscular Volume 92.3 fl (80-100); Nucleated Red Blood Cells Absolute Auto 0.000 K/mm3 (0.0-0.012); Nucleated Red Blood Cells Perc 0.0 % (0.0-0.2); Platelet Count Result 56 k/mm3 (150-375); Red Blood Count 2.71 M/mm3 (4.2-5.4); White Blood Count 2.8 K/mm3 (4.5-10.0)
[2025-03-27 06:30] LABS: Alanine Aminotransferase 15 U/L (6-35); Albumin Level 2.1 g/dL (3.5-5.1); Alkaline Phosphatase 70 U/L (38-126); Anion Gap 0 mmol/L (4-12); Aspartate Amino Transferase 23 U/L (14-36); Bilirubin,Total 0.5 mg/dL (0.2-1.3); Blood Urea Nitrogen 21 mg/dL (7-17); Calcium 7.9 mg/dL (8.4-10.2); Carbon Dioxide 20 mmol/L (22-30); Chloride 111 mmol/L (98-107); Estimated CRCL calculation 50 ml/min; Estimated Glomerular Filt Rate > 60; Glucose 94 mg/dL (65-110); Magnesium 1.6 mg/dL (1.6-2.3); Potassium 4.9 mmol/L (3.4-5.0); Sodium 131 mmol/L (137-145); Total Protein 4.9 g/dL (6.3-8.2)
[2025-03-27 07:05] LABS: Burr Cells 2+; Helmet Cells Occasional; Schistocytes 1+
[2025-03-27] MEDS: FUROSEMIDE INJ 40 MG/4 ML VIAL IV PUSH ×2 (09:34→16:43)
[2025-03-27] MEDS: LACTATED RINGERS 1,000 ML 100 ML IV CONT (09:34)
[2025-03-27 10:05] LABS: Procalcitonin 0.3 ng/mL
--- NOTE | 2025-03-27 13:56 | P.PNIM_ITS ---
Assessment and Plan Assessment and Plan (1) Pneumonia: Code(s): J18.9 - Pneumonia, unspecified organism Status: Acute (2) Acute hypoxic respiratory failure: Code(s): J96.01 - Acute respiratory failure with hypoxia Status: Acute (3) Pancytopenia: Code(s): D61.818 - Other pancytopenia Status: Acute (4) Hypertension: Code(s): I10 - Essential (primary) hypertension Status: Acute (5) Hyperlipidemia: Code(s): E78.5 - Hyperlipidemia, unspecified Status: Acute (6) GERD (gastroesophageal reflux disease): Code(s): K21.9 - Gastro-esophageal reflux disease without esophagitis Status: Acute Plan This is a 80-year-old female who presents to the ED with shortness of breath from [place] [facility]. At the [facility] she was found to be hypoxic with 80% on room air requiring supplemental oxygen. She does not wear oxygen at baseline. Her oxygenation improved to 90% on 4 L oxygen via nasal cannula. She was visibly short of breath on arrival. Denied any chest pain. No fever chills. No cough. No abdominal pain nausea vomiting. She had exposure to COVID at the nursing facility as reported by the EMS staff. In the ED she was ill-appearing visibly dyspneic temperature was borderline at 99. Mildly tachycardic and hypertensive. Laboratory studies showed WBC of 5.7 hemoglobin of 9.8 platelet count of 105. INR 1.3 sodium 132 potassium 5.3 chloride 109 bicarbonate 20 BUN 22 creatinine 0.78 blood glucose 110 lactate of 0.6 calcium of 8.1 CRP was 2.4 LFT were normal. Urinalysis with more than 100 WBC with 3+ leukocyte esterase negative nitrate. Influenza RSV COVID swab was negative. EKG showed sinus rhythm with nonspecific ST-T changes Chest x-ray showed right lower lobe pneumonia. She has been started on ceftriaxone azithromycin She is admitted for further treatment. Acute hypoxic respiratory failure oxygen supplementation after CTA most likely etiology is CHF exacerbation. Acute on chronic CHF a CT echocardiogram. Start diuresis 40 mg IV b.i.d.. Lower extremity edema venous duplex is negative for DVT Right lower lobe Pneumonia. This chest x-ray has been read at large right and small left pleural effusion. CTA was performed to further evaluate which is negative for PE however shows mild pulmonary edema and moderate-sized right and small left pleural effusions. Age indeterminate T12 burst fracture as noted. UTI ceftriaxone pain has been started Sepsis IV fluid bolus received in the ER she has significant dependent edema will stop further IV fluid. Venous duplex and CT chest will be ordered to further evaluate her respiratory distress. BNP was elevated at 4700. Will start diuresis Hypertension Hyperlipidemia GERD Pancytopenia follows with Heme-Onc. DVT prophylaxis Lovenox which is held due to thrombocytopenia Code status do not resuscitate Subjective Date/time seen: 03/27/25 13:56 Interval history: No overnight events. Feels tired. No new complaints. Breathing about the same. Review of Systems Review of Systems: All systems reviewed & are unremarkable except as noted in HPI and below Exam Narrative: GENERAL: Chronically Ill-appearing, not in acute distress HEAD: [Normocephalic, atraumatic.] EYES: [PERRLA and EOMI.] ENT: Nares clear, no rhinorrhea or epistaxis. Mucous membranes dry. NECK: Supple. CHEST: coarse basilar breath sounds, no respiratory distress HEART: [Regular rate and rhythm]. No murmur heard. [Normal peripheral pulses.] ABDOMEN: [Soft, nondistended], [nontender], [No rigidity or guarding] EXTREMITIES: Normal range of motion. Dependent edema noted SKIN: Warm, dry, no rash. NEURO: [No focal deficits]. Alert and oriented [x3.] Generalized weakness PSYCH: [Normal mood and affect.] Objective Data Vital Signs Vital Signs: Vital Signs - 24 hr 03/26/25 19:27 03/26/25 19:42 03/26/25 19:43 Temperature 99.2 F Pulse Rate 103 H 111 H Respiratory Rate 23 H Blood Pressure 169/104 H Pulse Oximetry 93 94 Oxygen Delivery Room Air Room Air Oxygen Flow Rate Fraction of Inspired Oxygen 03/26/25 20:04 03/26/25 21:22 03/26/25 21:23 Temperature Pulse Rate 94 90 Respiratory Rate 21 H 20 Blood Pressure 147/84 H Pulse Oximetry 99 96 98 Oxygen Delivery High Flow Nasal Cannula Oxygen Flow Rate 1 Fraction of Inspired Oxygen 03/26/25 21:30 03/26/25 22:15 03/26/25 22:34 Temperature 98.3 F 98.3 F Pulse Rate 89 90 89 Respiratory Rate 21 H 18 20 Blood Pressure 147/84 H 141/85 H 126/89 Pulse Oximetry 99 98 99 Oxygen Delivery Oxygen Flow Rate Fraction of Inspired Oxygen 03/26/25 23:10 03/27/25 00:00 03/27/25 00:25 Temperature 97.7 F Pulse Rate 84 Respiratory Rate 18 Blood Pressure 139/79 Pulse Oximetry 97 95 95 Oxygen Delivery Nasal Cannula Nasal Cannula Oxygen Flow Rate 2 2 Fraction of Inspired Oxygen 03/27/25 01:20 03/27/25 01:20 03/27/25 04:00 Temperature Pulse Rate 71 73 65 Respiratory Rate 20 20 Blood Pressure Pulse Oximetry 97 Oxygen Delivery Nasal Cannula Oxygen Flow Rate 1 Fraction of Inspired Oxygen 03/27/25 05:25 03/27/25 05:26 03/27/25 06:00 Temperature 97.1 F L Pulse Rate 71 71 72 Respiratory Rate 20 20 18 Blood Pressure 123/66 Pulse Oximetry 97 98 Oxygen Delivery Nasal Cannula Oxygen Flow Rate 1 Fraction of Inspired Oxygen 03/27/25 08:00 03/27/25 08:00 03/27/25 08:00 Temperature 97.3 F L Pulse Rate 78 81 Respiratory Rate 16 Blood Pressure 132/74 Pulse Oximetry 99 96 Oxygen Delivery Nasal Cannula Oxygen Flow Rate 2 Fraction of Inspired Oxygen 03/27/25 08:40 03/27/25 08:45 03/27/25 08:49 Temperature Pulse Rate 76 75 79 Respiratory Rate 20 20 20 Blood Pressure Pulse Oximetry 96 Oxygen Delivery Nasal Cannula Oxygen Flow Rate 1 Fraction of Inspired Oxygen 03/27/25 11:48 03/27/25 13:36 03/27/25 13:40 Temperature Pulse Rate 73 72 Respiratory Rate 20 20 Blood Pressure Pulse Oximetry Oxygen Delivery Nasal Cannula Oxygen Flow Rate 1 Fraction of Inspired Oxygen Intake/Output Intake/Output: Intake & Output 03/24/25 03/25/25 03/26/25 03/27/25 23:59 23:59 23:59 23:59 Intake Total 2400 1230 Output Total 450 Balance 1950 1230 Meds/Results Medications: Active Medications Generic Name Dose Route Start Last Admin Trade Name Freq PRN Reason Stop Dose Admin Acetaminophen 650 mg 03/26/25 22:21 Acetaminophen 325 Mg Tablet PO Q4H PRN Mild Pain (1-3) or Fever Albuterol/Ipratropium 3 ml 03/27/25 02:00 03/27/25 13:34 Ipratropium 0.5 Mg/Albuterol Sulfate 2.5 Mg (Base) Ampul.Neb 3 Ml INHALATION 3 ml Q6HRT STEVE Administration Enoxaparin Sodium 40 mg 03/27/25 09:00 Enoxaparin 40 Mg/0.4 Ml Syringe SUB-Q On Hold: 03/27/25 09:00 DAILY STEVE Furosemide 40 mg 03/27/25 09:00 03/27/25 09:34 Furosemide Inj 40 Mg/4 Ml Vial IV PUSH 40 mg BID STEVE Administration Lactated Ringer's 1,000 mls @ 100 mls/hr 03/26/25 22:05 03/27/25 09:34 Lr - Lactated Ringers Iv IV CONT 100 mls/hr .Q10H STEVE Administration Ceftriaxone Sodium 1 gm/ 50 mls @ 100 mls/hr 03/27/25 21:00 Sodium Chloride IVPB Q24H STEVE Azithromycin 500 mg/ Sodium 250 mls @ 250 mls/hr 03/27/25 22:00 Chloride IVPB Q24H STEVE Metoclopramide HCl 10 mg 03/27/25 16:30 Metoclopramide Hcl 10 Mg Tablet PO ACHS STEVE Ondansetron HCl 4 mg 03/26/25 22:21 Ondansetron Inj 4 Mg/2 Ml Vial IV PUSH Q6H PRN Nausea And Vomiting Radiology Results: ITS Impressions Chest CTA 03/27/25 06:53 IMPRESSION: 1. No pulmonary embolus. 2. Mild pulmonary edema. 3. Moderate-sized right and small left pleural effusions. 4. Age-indeterminate T12 burst fracture. Chest X-Ray 03/27/25 07:03 IMPRESSION: 1. Large right and small left pleural effusions. Venous Doppler Study 03/27/25 11:26 IMPRESSION: 1. No deep venous thrombosis seen with limitations noted above. 2. Probable inguinal hernia with herniated intestine in the right groin. 3. 9 mm reactive appearing lymph node in the left groin region. Extensive edema present; correlate clinically for evidence of inflammatory/infectious process such as cellulitis. Labs Labs: Laboratory Results - last 24 hr 03/26/25 03/26/25 03/26/25 19:52 19:58 21:11 WBC 5.7 RBC 3.37 L Hgb 9.8 L Hct 29.7 L MCV 88.1 MCH 29.1 MCHC 33.0 RDW 16.5 H Plt Count 105 L MPV 10.6 H Immature Gran % (Auto) 0.2 Neut % (Auto) 79.5 H Lymph % (Auto) 13.9 L [place] % (Auto) 5.3 Eos % (Auto) 0.7 Baso % (Auto) 0.4 Lymph # (Auto) 0.79 L [place] # (Auto) 0.3 Eos # (Auto) 0.0 Baso # (Auto) 0.0 Abs Immat Gran (auto) 0.01 Absolute Neuts (auto) 4.5 Absolute Nucleated RBC 0.000 Band Neutrophils % Nucleated RBC % 0.0 Platelet Estimate % Immature Plt Fraction Helmet Cells [place] Cells Schistocytes PT 16.0 H INR 1.3 APTT 26.2 Sodium 132 L Potassium 5.3 H Chloride 109 H Carbon Dioxide 20 L Anion Gap 3 L BUN 22 H Creatinine 0.78 Estim Creat Clear Calc 46 Estimated GFR > 60 Glucose 110 Lactic Acid 0.6 L Calcium 8.1 L Magnesium Total Bilirubin 0.6 AST 27 ALT 19 Alkaline Phosphatase 81 C-Reactive Protein 2.4 H NT-Pro-B Natriuret Pep Cancelled 4700 H Total Protein 6.0 L Albumin 2.7 L Procalcitonin Urine Color Dark yellow Urine Appearance Turbid H Urine pH 8.0 Ur Specific [place] 1.017 Urine Protein 3+ H Urine Glucose (UA) Negative Urine Ketones Negative Ur Blood (Man) 3+ H Urine Nitrate Negative Urine Bilirubin Negative Urine Urobilinogen 0.2 Add Ur Microanalysis Reviewed Leukocyte Esterase Rfl 3+ H Urine RBC 11-20 H Urine WBC >100 H Ur Squamous Epith Cells Many H Urine Bacteria 4+ Urine Casts >20 Influenza A (RT-PCR) Negative Influenza B (RT-PCR) Negative RSV (RT-PCR) Negative SARS-CoV-2 RNA (RT-PCR) Negative 03/27/25 03/27/25 05:36 05:40 WBC 2.8 L RBC 2.71 L Hgb 7.8 L Hct 25.0 L MCV 92.3 MCH 28.8 MCHC 31.2 L RDW 16.3 H Plt Count 56 L MPV 10.4 Immature Gran % (Auto) 0.7 H Neut % (Auto) 67.1 Lymph % (Auto) 23.5 [place] % (Auto) 7.6 Eos % (Auto) 1.1 Baso % (Auto) 0.0 L Lymph # (Auto) 0.65 L [place] # (Auto) 0.2 Eos # (Auto) 0.0 Baso # (Auto) 0.0 Abs Immat Gran (auto) 0.02 Absolute Neuts (auto) 1.9 Absolute Nucleated RBC 0.000 Band Neutrophils % Not Reportable Nucleated RBC % 0.0 Platelet Estimate Decreased % Immature Plt Fraction 1.1 Helmet Cells Occasional [place] Cells 2+ Schistocytes 1+ PT INR APTT Sodium 131 L Potassium 4.9 Chloride 111 H Carbon Dioxide 20 L Anion Gap 0 L BUN 21 H Creatinine 0.70 Estim Creat Clear Calc 50 Estimated GFR > 60 Glucose 94 Lactic Acid Calcium 7.9 L Magnesium 1.6 Total Bilirubin 0.5 AST 23 ALT 15 Alkaline Phosphatase 70 C-Reactive Protein NT-Pro-B Natriuret Pep Total Protein 4.9 L Albumin 2.1 L Procalcitonin 0.3 Urine Color Urine Appearance Urine pH Ur Specific [place] Urine Protein Urine Glucose (UA) Urine Ketones Ur Blood (Man) Urine Nitrate Urine Bilirubin Urine Urobilinogen Add Ur Microanalysis Leukocyte Esterase Rfl Urine RBC Urine WBC Ur Squamous Epith Cells Urine Bacteria Urine Casts Influenza A (RT-PCR) Influenza B (RT-PCR) RSV (RT-PCR) SARS-CoV-2 RNA (RT-PCR)
[2025-03-27] MEDS: GABAPENTIN 100 MG CAPSULE PO (16:43)
[2025-03-27] MEDS: METOCLOPRAMIDE HCL 10 MG TABLET PO ×2 (16:43→20:30)
[2025-03-27] MEDS: ATORVASTATIN 40 MG TABLET PO (16:50)
[2025-03-27] MEDS: PANTOPRAZOLE 40 MG TABLET PO (20:31)
[2025-03-27] MEDS: cefTRIAXone 1 GM in SODIUM CHLORIDE 0.9% IV 50 ML 100 ML IVPB (20:31)
[2025-03-27] MEDS: AZITHROMYCIN IV 500 MG in SODIUM CHLORIDE 0.9% IV 250 ML IVPB (21:13)
[2025-03-28] VITALS (21 sets, daily range): BP systolic 101–127; BP diastolic 60–69; PULSE 61–83; RESP 16–20; TEMP 36.1–36.3; O2SAT 90–96
[2025-03-28] MEDS: IPRATROPIUM 0.5 MG/ALBUTEROL SULFATE 2.5 MG (BASE) AMPUL.NEB 3 ML INHALATION ×4 (02:05→20:15)
[2025-03-28] MEDS: METOCLOPRAMIDE HCL 10 MG TABLET PO ×4 (05:38→22:22)
[2025-03-28 06:17] LABS: Hematocrit 24.7 % (37.0-47.0); Hemoglobin 7.9 g/dL (12.0-15.0); Immature Granulocyte Percent A 0.4 % (0-0.5); Immature Platelet Fraction Pct 1.2 % (0.9-11.2); Lymphocytes Absolute Auto 0.81 K/mm3 (0.9-3.2); Mean Corpuscular HGB Conc 32.0 g/dl (32-36); Mean Corpuscular Hemoglobin 28.0 pg (26-34); Mean Corpuscular Volume 87.6 fl (80-100); Nucleated Red Blood Cells Absolute Auto 0.000 K/mm3 (0.0-0.012); Nucleated Red Blood Cells Perc 0.0 % (0.0-0.2); Platelet Count Result 64 k/mm3 (150-375); Red Blood Count 2.82 M/mm3 (4.2-5.4); White Blood Count 2.8 K/mm3 (4.5-10.0)
[2025-03-28 06:47] LABS: Alanine Aminotransferase 15 U/L (6-35); Albumin Level 2.3 g/dL (3.5-5.1); Alkaline Phosphatase 76 U/L (38-126); Anion Gap 0 mmol/L (4-12); Aspartate Amino Transferase 21 U/L (14-36); Bilirubin,Total 0.4 mg/dL (0.2-1.3); Blood Urea Nitrogen 22 mg/dL (7-17); Calcium 8.0 mg/dL (8.4-10.2); Carbon Dioxide 23 mmol/L (22-30); Chloride 110 mmol/L (98-107); Estimated CRCL calculation 43 ml/min; Estimated Glomerular Filt Rate > 60; Glucose 96 mg/dL (65-110); Magnesium 1.7 mg/dL (1.6-2.3); Potassium 4.8 mmol/L (3.4-5.0); Sodium 133 mmol/L (137-145); Total Protein 5.1 g/dL (6.3-8.2)
[2025-03-28 06:57] LABS: Burr Cells 2+; Helmet Cells 1+; Ovalocytes 1+
[2025-03-28 06:58] LABS: Schistocytes Occasional
[2025-03-28] MEDS: SERTRALINE HCL 50 MG TABLET 150 MG PO (08:30)
[2025-03-28] MEDS: FOLIC ACID 1 MG TABLET PO (08:30)
[2025-03-28] MEDS: PANTOPRAZOLE 40 MG TABLET PO ×2 (08:30→22:03)
[2025-03-28] MEDS: GABAPENTIN 100 MG CAPSULE PO ×2 (08:30→17:07)
[2025-03-28] MEDS: SPIRONOLACTONE 25 MG TABLET PO (08:30)
[2025-03-28] MEDS: FUROSEMIDE INJ 40 MG/4 ML VIAL IV PUSH ×2 (08:30→17:07)
--- NOTE | 2025-03-28 13:37 | P.PNIM_ITS ---
Assessment and Plan Assessment and Plan (1) Pneumonia: Code(s): J18.9 - Pneumonia, unspecified organism Status: Acute (2) Acute hypoxic respiratory failure: Code(s): J96.01 - Acute respiratory failure with hypoxia Status: Acute (3) Pancytopenia: Code(s): D61.818 - Other pancytopenia Status: Acute (4) Hypertension: Code(s): I10 - Essential (primary) hypertension Status: Acute (5) Hyperlipidemia: Code(s): E78.5 - Hyperlipidemia, unspecified Status: Acute (6) GERD (gastroesophageal reflux disease): Code(s): K21.9 - Gastro-esophageal reflux disease without esophagitis Status: Acute Plan This is a 80-year-old female who presents to the ED with shortness of breath from her and intermediate facility. At the intermediate facility she was found to be hypoxic with 80% on room air requiring supplemental oxygen. She does not wear oxygen at baseline. Her oxygenation improved to 90% on 4 L oxygen via nasal cannula. She was visibly short of breath on arrival. Denied any chest pain. No fever chills. No cough. No abdominal pain nausea vomiting. She had exposure to COVID at the nursing facility as reported by the EMS staff. In the ED she was ill-appearing visibly dyspneic temperature was borderline at 99. Mildly tachycardic and hypertensive. Laboratory studies showed WBC of 5.7 hemoglobin of 9.8 platelet count of 105. INR 1.3 sodium 132 potassium 5.3 chloride 109 bicarbonate 20 BUN 22 creatinine 0.78 blood glucose 110 lactate of 0.6 calcium of 8.1 CRP was 2.4 LFT were normal. Urinalysis with more than 100 WBC with 3+ leukocyte esterase negative nitrate. Influenza RSV COVID swab was negative. EKG showed sinus rhythm with nonspecific ST-T changes Chest x-ray showed possible right lower lobe pneumonia. She has been started on ceftriaxone azithromycin She is admitted for further treatment. Acute hypoxic respiratory failure oxygen supplementation chest x-ray with possible right lower lobe pneumonia however later was read as pleural effusion. After CTA most likely etiology is CHF exacerbation. Continue antibiotics as ordered for possible underlying pneumonia but should be able to taper off quickly. Procalcitonin 0.3. She will need ceftriaxone for UTI. Will continue azithromycin for 5 days Acute on chronic CHF a CT echocardiogram. Start diuresis 40 mg IV b.i.d.. Echo with EF 40-45% inferior wall and inferoseptal akinetic. No prior echo available Lower extremity edema venous duplex is negative for DVT. She is also hypoalbuminemic with albumin level of 2 Right lower lobe Pneumonia. This chest x-ray has been read at large right and small left pleural effusion. CTA was performed to further evaluate which is negative for PE however shows mild pulmonary edema and moderate-sized right and small left pleural effusions. Age indeterminate T12 burst fracture as noted. UTI ceftriaxone pain has been started. Urine culture pending Sepsis IV fluid bolus received in the ER she has significant dependent edema will stop further IV fluid. Venous duplex and CT chest will be ordered to further evaluate her respiratory distress. BNP was elevated at 4700. Started on diuresis as CTA suggestive of CHF exacerbation Systolic dysfunction: On carvedilol spironolactone. Will add losartan as tolerated Hypertension Hyperlipidemia GERD Pancytopenia follows with Heme-Onc. DVT prophylaxis Lovenox which is held due to thrombocytopenia Code status do not resuscitate Subjective Date/time seen: 03/28/25 13:37 Interval history: No overnight events. Patient feels better. She is off oxygen now. Intake and output not charted Review of Systems Review of Systems: All systems reviewed & are unremarkable except as noted in HPI and below Exam Narrative: GENERAL: Chronically Ill-appearing, not in acute distress HEAD: [Normocephalic, atraumatic.] EYES: [PERRLA and EOMI.] ENT: Nares clear, no rhinorrhea or epistaxis. Mucous membranes dry. NECK: Supple. CHEST: coarse basilar breath sounds, no respiratory distress HEART: [Regular rate and rhythm]. No murmur heard. [Normal peripheral pulses.] ABDOMEN: [Soft, nondistended], [nontender], [No rigidity or guarding] EXTREMITIES: Normal range of motion. Dependent edema noted SKIN: Warm, dry, no rash. NEURO: [No focal deficits]. Alert and oriented [x3.] Generalized weakness PSYCH: [Normal mood and affect.] Objective Data Vital Signs Vital Signs: Vital Signs - 24 hr 03/27/25 13:40 03/27/25 14:00 03/27/25 15:06 Temperature 97.4 F L Pulse Rate 72 67 Respiratory Rate 20 12 Blood Pressure 145/76 H Pulse Oximetry 97 Oxygen Delivery Nasal Cannula Oxygen Flow Rate 1 Fraction of Inspired Oxygen 03/27/25 16:00 03/27/25 19:52 03/27/25 19:52 Temperature Pulse Rate 76 86 86 Respiratory Rate 16 16 Blood Pressure Pulse Oximetry 95 Oxygen Delivery Room Air Oxygen Flow Rate Fraction of Inspired Oxygen 21 03/27/25 20:00 03/27/25 21:42 03/28/25 00:00 Temperature 98.2 F Pulse Rate 76 75 64 Respiratory Rate 16 Blood Pressure 144/87 H Pulse Oximetry 94 Oxygen Delivery Oxygen Flow Rate Fraction of Inspired Oxygen 03/28/25 02:05 03/28/25 02:10 03/28/25 04:00 Temperature Pulse Rate 63 64 61 Respiratory Rate 16 16 Blood Pressure Pulse Oximetry Oxygen Delivery Oxygen Flow Rate Fraction of Inspired Oxygen 03/28/25 06:00 03/28/25 08:00 03/28/25 08:00 Temperature 97 F L 97.3 F L Pulse Rate 69 79 82 Respiratory Rate 18 16 Blood Pressure 103/60 106/64 Pulse Oximetry 96 94 Oxygen Delivery Oxygen Flow Rate Fraction of Inspired Oxygen 03/28/25 08:05 03/28/25 08:05 03/28/25 08:10 Temperature Pulse Rate 77 78 Respiratory Rate 17 17 Blood Pressure Pulse Oximetry 91 Oxygen Delivery Room Air Oxygen Flow Rate Fraction of Inspired Oxygen 03/28/25 08:30 Temperature Pulse Rate 80 Respiratory Rate Blood Pressure Pulse Oximetry Oxygen Delivery Oxygen Flow Rate Fraction of Inspired Oxygen Intake/Output Intake/Output: Intake & Output 03/25/25 03/26/25 03/27/25 03/28/25 23:59 23:59 23:59 23:59 Intake Total 2400 1650 590 Output Total 450 Balance 1950 1650 590 Meds/Results Medications: Active Medications Generic Name Dose Route Start Last Admin Trade Name Freq PRN Reason Stop Dose Admin Acetaminophen 650 mg 03/26/25 22:21 Acetaminophen 325 Mg Tablet PO Q4H PRN Mild Pain (1-3) or Fever Albuterol/Ipratropium 3 ml 03/27/25 02:00 03/28/25 08:04 Ipratropium 0.5 Mg/Albuterol Sulfate 2.5 Mg (Base) Ampul.Neb 3 Ml INHALATION 3 ml Q6HRT STEVE Administration Amlodipine Besylate 2.5 mg 03/28/25 09:00 03/28/25 08:30 Amlodipine Besylate 2.5 Mg Tablet PO 2.5 mg DAILY STEVE Administration Atorvastatin Calcium 40 mg 03/27/25 18:00 03/27/25 16:50 Atorvastatin 40 Mg Tablet PO 40 mg QPM STEVE Administration Carvedilol 12.5 mg 03/27/25 21:00 03/28/25 08:30 Carvedilol 12.5 Mg Tablet PO 12.5 mg Q12HR STEVE Administration Enoxaparin Sodium 40 mg 03/27/25 09:00 Enoxaparin 40 Mg/0.4 Ml Syringe SUB-Q On Hold: 03/27/25 09:00 DAILY STEVE Folic Acid 1 mg 03/28/25 09:00 03/28/25 08:30 Folic Acid 1 Mg Tablet PO 1 mg DAILY STEVE Administration Furosemide 40 mg 03/27/25 09:00 03/28/25 08:30 Furosemide Inj 40 Mg/4 Ml Vial IV PUSH 40 mg BID STEVE Administration Gabapentin 100 mg 03/27/25 17:00 03/28/25 08:30 Gabapentin 100 Mg Capsule PO 100 mg BID STEVE Administration Ceftriaxone Sodium 1 gm/ 50 mls @ 100 mls/hr 03/27/25 21:00 03/27/25 20:31 Sodium Chloride IVPB 100 mls/hr Q24H STEVE Administration Azithromycin 500 mg/ Sodium 250 mls @ 250 mls/hr 03/27/25 22:00 03/27/25 21:13 Chloride IVPB 250 mls/hr Q24H STEVE Administration Metoclopramide HCl 10 mg 03/27/25 16:30 03/28/25 12:54 Metoclopramide Hcl 10 Mg Tablet PO 10 mg ACHS STEVE Administration Ondansetron HCl 4 mg 03/26/25 22:21 Ondansetron Inj 4 Mg/2 Ml Vial IV PUSH Q6H PRN Nausea And Vomiting Pantoprazole Sodium 40 mg 03/27/25 21:00 03/28/25 08:30 Pantoprazole 40 Mg Tablet PO 40 mg Q12HR STEVE Administration Perflutren Lipid Microsphere 0 ml 03/27/25 13:59 Perflutren Lipid Microspheres 1.5 Ml Vial Diluted To 10 Ml Total Volume IV PUSH 03/30/25 13:59 ONCE PRN adequate visualization Protocol Sertraline HCl 150 mg 03/28/25 09:00 03/28/25 08:30 Sertraline Hcl 50 Mg Tablet PO 150 mg QAM STEVE Administration Spironolactone 25 mg 03/28/25 09:00 03/28/25 08:30 Spironolactone 25 Mg Tablet PO 25 mg DAILY STEVE Administration Trazodone HCl 150 mg 03/27/25 21:00 03/27/25 20:30 Trazodone Hcl 50 Mg Tablet PO 150 mg HS STEVE Administration Radiology Results: ITS Impressions Chest CTA 03/27/25 06:53 IMPRESSION: 1. No pulmonary embolus. 2. Mild pulmonary edema. 3. Moderate-sized right and small left pleural effusions. 4. Age-indeterminate T12 burst fracture. Chest X-Ray 03/27/25 07:03 IMPRESSION: 1. Large right and small left pleural effusions. Venous Doppler Study 03/27/25 11:26 IMPRESSION: 1. No deep venous thrombosis seen with limitations noted above. 2. Probable inguinal hernia with herniated intestine in the right groin. 3. 9 mm reactive appearing lymph node in the left groin region. Extensive edema present; correlate clinically for evidence of inflammatory/infectious process such as cellulitis. Labs Labs: Laboratory Results - last 24 hr 03/28/25 06:00 WBC 2.8 L RBC 2.82 L Hgb 7.9 L Hct 24.7 L MCV 87.6 D MCH 28.0 MCHC 32.0 RDW 16.4 H Plt Count 64 L MPV 10.3 Immature Gran % (Auto) 0.4 Neut % (Auto) 62.1 Lymph % (Auto) 28.9 [place] % (Auto) 6.4 Eos % (Auto) 1.8 Baso % (Auto) 0.4 Lymph # (Auto) 0.81 L [place] # (Auto) 0.2 Eos # (Auto) 0.1 Baso # (Auto) 0.0 Abs Immat Gran (auto) 0.01 Absolute Neuts (auto) 1.7 Absolute Nucleated RBC 0.000 Band Neutrophils % Not Reportable Nucleated RBC % 0.0 Platelet Estimate Decreased % Immature Plt Fraction 1.2 Ovalocytes 1+ Helmet Cells 1+ [place] Cells 2+ Schistocytes Occasional Sodium 133 L Potassium 4.8 Chloride 110 H Carbon Dioxide 23 Anion Gap 0 L BUN 22 H Creatinine 0.82 Estim Creat Clear Calc 43 Estimated GFR > 60 Glucose 96 Calcium 8.0 L Magnesium 1.7 Total Bilirubin 0.4 AST 21 ALT 15 Alkaline Phosphatase 76 Total Protein 5.1 L Albumin 2.3 L
[2025-03-28] MEDS: ATORVASTATIN 40 MG TABLET PO (17:07)
[2025-03-28] MEDS: AZITHROMYCIN 500 MG TABLET PO (22:03)
[2025-03-28] MEDS: cefTRIAXone 1 GM in SODIUM CHLORIDE 0.9% IV 50 ML 100 ML IVPB (22:03)
[2025-03-28] MEDS: ACETAMINOPHEN 325 MG TABLET 650 MG PO (22:07)
[2025-03-29] VITALS (19 sets, daily range): BP systolic 112–152; BP diastolic 65–99; PULSE 58–77; RESP 14–20; TEMP 36.1–36.9; O2SAT 92–96; BMI 10.0
[2025-03-29] MEDS: IPRATROPIUM 0.5 MG/ALBUTEROL SULFATE 2.5 MG (BASE) AMPUL.NEB 3 ML INHALATION ×4 (01:10→21:16)
[2025-03-29] MEDS: METOCLOPRAMIDE HCL 10 MG TABLET PO ×4 (06:18→22:31)
[2025-03-29 06:47] LABS: Hematocrit 21.7 % (37.0-47.0); Hemoglobin 7.1 g/dL (12.0-15.0); Immature Platelet Fraction Pct 1.3 % (0.9-11.2); Mean Corpuscular HGB Conc 32.7 g/dl (32-36); Mean Corpuscular Hemoglobin 28.5 pg (26-34); Mean Corpuscular Volume 87.1 fl (80-100); Platelet Count Result 50 k/mm3 (150-375); Red Blood Count 2.49 M/mm3 (4.2-5.4)
[2025-03-29 06:52] LABS: White Blood Count 1.7 K/mm3 (4.5-10.0)
[2025-03-29 07:10] LABS: Alanine Aminotransferase 12 U/L (6-35); Albumin Level 2.2 g/dL (3.5-5.1); Alkaline Phosphatase 66 U/L (38-126); Anion Gap 4 mmol/L (4-12); Aspartate Amino Transferase 18 U/L (14-36); Bilirubin,Total 0.2 mg/dL (0.2-1.3); Blood Urea Nitrogen 24 mg/dL (7-17); Calcium 7.6 mg/dL (8.4-10.2); Carbon Dioxide 21 mmol/L (22-30); Chloride 108 mmol/L (98-107); Estimated CRCL calculation 37 ml/min; Estimated Glomerular Filt Rate 56; Glucose 83 mg/dL (65-110); Magnesium 1.4 mg/dL (1.6-2.3); Potassium 4.3 mmol/L (3.4-5.0); Sodium 133 mmol/L (137-145); Total Protein 4.9 g/dL (6.3-8.2)
[2025-03-29 07:35] LABS: Band Neutrophils Percent 2 % (0-6); Basophils Absolute Manual 0.01 K/mm3 (0.0-0.1); Basophils Percent Manual 1 % (0-1); Eosinophils Absolute Manual 0.01 K/mm3 (0.02-0.50); Eosinophils Percent Manual 1 % (0-4); Lymphocytes Absolute Manual 0.44 K/mm3 (1.1-4.5); Lymphocytes Percent Manual 26 % (18-44); Monocytes Absolute Manual 0.01 K/mm3 (0.1-0.90); Monocytes Percent Manual 1 % (3-9); Neutrophils Absolute Manual 1.20 K/mm3 (1.3-6.7); Neutrophils Percent Manual 69 % (46-73); Smudge Cells PRESENT; Total Cells Counted 100
[2025-03-29 07:36] LABS: Basophilic Stippling Occasional; Burr Cells 1+; Helmet Cells Occasional; Hypochromasia Occasional; Ovalocytes 1+
[2025-03-29 07:37] LABS: Schistocytes None Seen
--- NOTE | 2025-03-29 08:29 | PM.IMPN2 ---
Assessment and Plan Assessment and Plan (1) Pneumonia: Code(s): J18.9 - Pneumonia, unspecified organism Status: Acute (2) Acute hypoxic respiratory failure: Code(s): J96.01 - Acute respiratory failure with hypoxia Status: Acute (3) Pancytopenia: Code(s): D61.818 - Other pancytopenia Status: Acute (4) Hypertension: Code(s): I10 - Essential (primary) hypertension Status: Acute (5) Hyperlipidemia: Code(s): E78.5 - Hyperlipidemia, unspecified Status: Acute (6) GERD (gastroesophageal reflux disease): Code(s): K21.9 - Gastro-esophageal reflux disease without esophagitis Status: Acute Plan This is a 80-year-old female who presents to the ED with shortness of breath from her and custodial facility. At the custodial facility she was found to be hypoxic with 80% on room air requiring supplemental oxygen. She does not wear oxygen at baseline. Her oxygenation improved to 90% on 4 L oxygen via nasal cannula. She was visibly short of breath on arrival. Denied any chest pain. No fever chills. No cough. No abdominal pain nausea vomiting. She had exposure to COVID at the nursing facility as reported by the EMS staff. In the ED she was ill-appearing visibly dyspneic temperature was borderline at 99. Mildly tachycardic and hypertensive. Laboratory studies showed WBC of 5.7 hemoglobin of 9.8 platelet count of 105. INR 1.3 sodium 132 potassium 5.3 chloride 109 bicarbonate 20 BUN 22 creatinine 0.78 blood glucose 110 lactate of 0.6 calcium of 8.1 CRP was 2.4 LFT were normal. Urinalysis with more than 100 WBC with 3+ leukocyte esterase negative nitrate. Influenza RSV COVID swab was negative. EKG showed sinus rhythm with nonspecific ST-T changes Chest x-ray showed possible right lower lobe pneumonia. She has been started on ceftriaxone azithromycin She is admitted for further treatment. Acute hypoxic respiratory failure oxygen supplementation chest x-ray with possible right lower lobe pneumonia however later was read as pleural effusion. After CTA most likely etiology is CHF exacerbation. Continue antibiotics as ordered for possible underlying pneumonia but should be able to taper off quickly. Procalcitonin 0.3. She will need ceftriaxone for UTI. Will continue azithromycin for 5 days Acute on chronic CHF: Start diuresis 40 mg IV b.i.d.. Echo with EF 40-45% inferior wall and inferoseptal akinetic. No prior echo available. Recheck chest x-ray Lower extremity edema venous duplex is negative for DVT. She is also hypoalbuminemic with albumin level of 2. Will give some IV albumin Right lower lobe Pneumonia. This chest x-ray has been read at large right and small left pleural effusion. CTA was performed to further evaluate which is negative for PE however shows mild pulmonary edema and moderate-sized right and small left pleural effusions. Age indeterminate T12 burst fracture as noted. UTI ceftriaxone pain has been started. Urine culture pending Sepsis IV fluid bolus received in the ER she has significant dependent edema will stop further IV fluid. Venous duplex and CT chest will be ordered to further evaluate her respiratory distress. BNP was elevated at 4700. Started on diuresis as CTA suggestive of CHF exacerbation Systolic dysfunction: On carvedilol spironolactone. Will add losartan as tolerated Hypertension Hyperlipidemia GERD Pancytopenia follows with Heme-Onc. Worsening. Will consult Heme-Onc DVT prophylaxis Lovenox which is held due to thrombocytopenia Code status do not resuscitate Subjective Date/time seen: 03/29/25 08:29 Interval history: No overnight events. Labs reviewed. Patient denies any new complaints. Leg swelling persist. Review of Systems Review of Systems: All systems reviewed & are unremarkable except as noted in HPI and below Exam Narrative: GENERAL: Chronically Ill-appearing, not in acute distress HEAD: [Normocephalic, atraumatic.] EYES: [PERRLA and EOMI.] ENT: Nares clear, no rhinorrhea or epistaxis. Mucous membranes dry. NECK: Supple. CHEST: coarse basilar breath sounds, no respiratory distress HEART: [Regular rate and rhythm]. No murmur heard. [Normal peripheral pulses.] ABDOMEN: [Soft, nondistended], [nontender], [No rigidity or guarding] EXTREMITIES: Normal range of motion. Dependent edema noted lower extremity pitting 2+ SKIN: Warm, dry, no rash. NEURO: [No focal deficits]. Alert and oriented [x3.] Generalized weakness PSYCH: [Normal mood and affect.] Objective Data Vital Signs Vital Signs: Vital Signs - 24 hr 03/28/25 08:30 03/28/25 12:00 03/28/25 14:00 Temperature 97.3 F L Pulse Rate 80 78 83 Respiratory Rate 18 Blood Pressure 101/64 Pulse Oximetry 93 Oxygen Delivery Fraction of Inspired Oxygen 03/28/25 14:05 03/28/25 14:12 03/28/25 15:58 Temperature 97.4 F L Pulse Rate 70 69 79 Respiratory Rate 17 17 16 Blood Pressure 103/60 Pulse Oximetry 92 Oxygen Delivery Fraction of Inspired Oxygen 03/28/25 16:00 03/28/25 20:00 03/28/25 20:15 Temperature Pulse Rate 69 69 72 Respiratory Rate 20 Blood Pressure Pulse Oximetry Oxygen Delivery Fraction of Inspired Oxygen 03/28/25 20:17 03/28/25 20:24 03/28/25 20:53 Temperature 97.3 F L Pulse Rate 72 75 72 Respiratory Rate 20 20 18 Blood Pressure 127/69 Pulse Oximetry 90 96 Oxygen Delivery Room Air Fraction of Inspired Oxygen 21 03/28/25 22:04 03/29/25 00:00 03/29/25 00:00 Temperature 97.3 F L Pulse Rate 72 72 71 Respiratory Rate 18 Blood Pressure 127/69 Pulse Oximetry 96 Oxygen Delivery Fraction of Inspired Oxygen 03/29/25 01:10 03/29/25 01:20 03/29/25 04:00 Temperature Pulse Rate 64 66 61 Respiratory Rate 20 20 Blood Pressure Pulse Oximetry Oxygen Delivery Fraction of Inspired Oxygen 03/29/25 04:19 03/29/25 07:20 03/29/25 07:20 Temperature 97.1 F L Pulse Rate 62 66 Respiratory Rate 16 16 Blood Pressure 112/65 Pulse Oximetry 94 92 Oxygen Delivery Room Air Fraction of Inspired Oxygen 03/29/25 07:28 Temperature Pulse Rate 62 Respiratory Rate 16 Blood Pressure Pulse Oximetry Oxygen Delivery Fraction of Inspired Oxygen Intake/Output Intake/Output: Intake & Output 03/26/25 03/27/25 03/28/25 03/29/25 23:59 23:59 23:59 23:59 Intake Total 2400 1700 1070 0 Output Total 450 Balance 1950 1700 1070 0 Meds/Results Medications: Active Medications Generic Name Dose Route Start Last Admin Trade Name Freq PRN Reason Stop Dose Admin Acetaminophen 650 mg 03/26/25 22:21 03/28/25 22:07 Acetaminophen 325 Mg Tablet PO 650 mg Q4H PRN Administration Mild Pain (1-3) or Fever Albuterol/Ipratropium 3 ml 03/27/25 02:00 03/29/25 07:19 Ipratropium 0.5 Mg/Albuterol Sulfate 2.5 Mg (Base) Ampul.Neb 3 Ml INHALATION 3 ml Q6HRT STEVE Administration Amlodipine Besylate 2.5 mg 03/28/25 09:00 03/28/25 08:30 Amlodipine Besylate 2.5 Mg Tablet PO 2.5 mg DAILY STEVE Administration Atorvastatin Calcium 40 mg 03/27/25 18:00 03/28/25 17:07 Atorvastatin 40 Mg Tablet PO 40 mg QPM STEVE Administration Azithromycin 500 mg 03/28/25 21:00 03/28/25 22:03 Azithromycin 500 Mg Tablet PO 03/30/25 21:01 500 mg DAILY@2100 STEVE Administration Carvedilol 12.5 mg 03/27/25 21:00 03/28/25 22:04 Carvedilol 12.5 Mg Tablet PO 12.5 mg Q12HR STEVE Administration Enoxaparin Sodium 40 mg 03/27/25 09:00 Enoxaparin 40 Mg/0.4 Ml Syringe SUB-Q On Hold: 03/27/25 09:00 DAILY STEVE Folic Acid 1 mg 03/28/25 09:00 03/28/25 08:30 Folic Acid 1 Mg Tablet PO 1 mg DAILY STEVE Administration Furosemide 40 mg 03/27/25 09:00 03/28/25 17:07 Furosemide Inj 40 Mg/4 Ml Vial IV PUSH 40 mg BID STEVE Administration Gabapentin 100 mg 03/27/25 17:00 03/28/25 17:07 Gabapentin 100 Mg Capsule PO 100 mg BID STEVE Administration Ceftriaxone Sodium 1 gm/ 50 mls @ 100 mls/hr 03/27/25 21:00 03/28/25 22:03 Sodium Chloride IVPB 100 mls/hr Q24H STEVE Administration Metoclopramide HCl 10 mg 03/27/25 16:30 03/29/25 06:18 Metoclopramide Hcl 10 Mg Tablet PO 10 mg ACHS STEVE Administration Ondansetron HCl 4 mg 03/26/25 22:21 Ondansetron Inj 4 Mg/2 Ml Vial IV PUSH Q6H PRN Nausea And Vomiting Pantoprazole Sodium 40 mg 03/27/25 21:00 03/28/25 22:03 Pantoprazole 40 Mg Tablet PO 40 mg Q12HR STEVE Administration Perflutren Lipid Microsphere 0 ml 03/27/25 13:59 Perflutren Lipid Microspheres 1.5 Ml Vial Diluted To 10 Ml Total Volume IV PUSH 03/30/25 13:59 ONCE PRN adequate visualization Protocol Sertraline HCl 150 mg 03/28/25 09:00 03/28/25 08:30 Sertraline Hcl 50 Mg Tablet PO 150 mg QAM STEVE Administration Spironolactone 25 mg 03/28/25 09:00 03/28/25 08:30 Spironolactone 25 Mg Tablet PO 25 mg DAILY STEVE Administration Trazodone HCl 150 mg 03/27/25 21:00 03/28/25 22:03 Trazodone Hcl 50 Mg Tablet PO 150 mg HS STEVE Administration Radiology Results: ITS Impressions Chest CTA 03/27/25 06:53 IMPRESSION: 1. No pulmonary embolus. 2. Mild pulmonary edema. 3. Moderate-sized right and small left pleural effusions. 4. Age-indeterminate T12 burst fracture. Chest X-Ray 03/27/25 07:03 IMPRESSION: 1. Large right and small left pleural effusions. Venous Doppler Study 03/27/25 11:26 IMPRESSION: 1. No deep venous thrombosis seen with limitations noted above. 2. Probable inguinal hernia with herniated intestine in the right groin. 3. 9 mm reactive appearing lymph node in the left groin region. Extensive edema present; correlate clinically for evidence of inflammatory/infectious process such as cellulitis. Labs Labs: Laboratory Results - last 24 hr 03/29/25 06:25 WBC 1.7 L* RBC 2.49 L Hgb 7.1 L Hct 21.7 L MCV 87.1 MCH 28.5 MCHC 32.7 RDW 16.2 H Plt Count 50 L MPV 9.8 Immature Gran % (Auto) Not Reportable Neut % (Auto) Not Reportable Lymph % (Auto) Not Reportable [place] % (Auto) Not Reportable Eos % (Auto) Not Reportable Baso % (Auto) Not Reportable Lymph # (Auto) Not Reportable [place] # (Auto) Not Reportable Eos # (Auto) Not Reportable Baso # (Auto) Not Reportable Abs Immat Gran (auto) Not Reportable Absolute Neuts (auto) Not Reportable Absolute Nucleated RBC Not Reportable Total Counted 100 Neutrophils % (Manual) 69 Band Neutrophils % 2 Lymphocytes % (Manual) 26 Monocytes % (Manual) 1 L Eosinophils % (Manual) 1 Basophils % (Manual) 1 Nucleated RBC % Not Reportable Abs Neuts (Manual) 1.20 L Abs Lymphs (Manual) 0.44 L Abs Monocytes (Manual) 0.01 L Absolute Eos (Manual) 0.01 L Abs Basophils (Manual) 0.01 [place] Cells Present Platelet Estimate Decreased % Immature Plt Fraction 1.3 Hypochromasia Occasional Basophilic Stippling Occasional Ovalocytes 1+ Helmet Cells Occasional [place] Cells 1+ Schistocytes None seen Sodium 133 L Potassium 4.3 Chloride 108 H Carbon Dioxide 21 L Anion Gap 4 BUN 24 H Creatinine 0.96 Estim Creat Clear Calc 37 Estimated GFR 56 L Glucose 83 Calcium 7.6 L Magnesium 1.4 L Total Bilirubin 0.2 AST 18 ALT 12 Alkaline Phosphatase 66 Total Protein 4.9 L Albumin 2.2 L
[2025-03-29] MEDS: FOLIC ACID 1 MG TABLET PO (09:36)
[2025-03-29] MEDS: SPIRONOLACTONE 25 MG TABLET PO (09:36)
[2025-03-29] MEDS: PANTOPRAZOLE 40 MG TABLET PO ×2 (09:36→22:31)
[2025-03-29] MEDS: SERTRALINE HCL 50 MG TABLET 150 MG PO (09:36)
[2025-03-29] MEDS: GABAPENTIN 100 MG CAPSULE PO ×2 (09:36→16:50)
[2025-03-29] MEDS: FUROSEMIDE INJ 40 MG/4 ML VIAL IV PUSH ×2 (09:37→16:50)
[2025-03-29] MEDS: MAGNESIUM SULF 2 GM/WATER 50ML 2 GM/50 ML BAG IVPB (09:40)
[2025-03-29] MEDS: ALBUMIN HUMAN 25% 25 GM/100 ML 100 ML IVPB ×2 (11:48→18:19)
--- NOTE | 2025-03-29 18:44 | WPDONCCN ---
Assessment and Plan Assessment and plan (1) Pancytopenia: Code(s): D61.818 - Other pancytopenia Status: Acute Assessment and Plan: Patient has a history of pancytopenia and was last seen in the office in June of 2024 at that time flow cytometric analysis was performed on the peripheral smear that showed 0.3% CD5 and CD10 negative clonal B-cells. Spleen ultrasound done in June 2024 showed significant splenomegaly with spleen size of 19 cm. Plan was to perform bone marrow aspiration and biopsy to rule out underlying myeloproliferative/lymphoproliferative disorders and myelodysplastic syndrome. Currently she got admitted to the hospital with generalized weakness tiredness and fatigue and was diagnosed to have right lower lobe pneumonia. I have reviewed the labs. I will order bone marrow aspiration and biopsy and follow-up in the office. HPI Data of Consult Date/Time: 03/29/25 18:44 Requesting Physician: Umair Bob MD Primary Care Provider: Roberto Gotti, Consult Narrative Narrative: Lauren Cummings is a 80 year old female with history of pancytopenia was last seen in the office in June 2024. Patient had a flow cytometry testing done previously that showed 0.3% CD5 and CD10 negative clonal B cells concerning for lymphoproliferative disorders. Plan was to perform bone marrow aspiration and biopsy. She came into the hospital with worsening of the shortness of breath. Labs showed WBC count of 5.7 with hemoglobin of 9.8 and platelet [id number]. Recent labs showed decline in the WBC count now 1.7 and hemoglobin [place] 7[place]1 [place] [address]. Ultrasound showed no evidence of bilateral lower extremity DVT. Chest CTA also showed no evidence of PE. There was moderate size right and small left-sided pleural effusion. Currently she has been treating for pneumonia. She remains quite tired and fatigued. Review of Systems Review of Systems: Twelve point review of system was reviewed [facility] Social History Social History Smoking status: Former smoker Alcohol intake: former Substance use: former Substance use type: does not use Lack of Transportation: No Lack of Food: Never True Current Housing: I Have Housing Concerned About Future Housing: No Difficulty Paying Gas/Electric Bills: Decline to Answer Difficulty Paying for Meds: Decline to Answer Currently Unemployed: Decline to Answer Education: Decline to Answer Difficulty w/ Childcare or Family Care: Decline to Answer Living arrangements: with family Spiritual care concerns: No Meds Home Medications and Allergies Home Medications ?Medication ?Instructions ?Recorded ?Confirmed ?Type amlodipine 10 mg tablet 2.5 mg PO DAILY 08/02/24 03/27/25 History atorvastatin 40 mg tablet 40 mg PO QPM 08/02/24 03/27/25 History carvedilol 12.5 mg tablet 12.5 mg PO Q12H 08/02/24 03/27/25 History pantoprazole 40 mg tablet,delayed 40 mg PO Q12H 08/02/24 03/27/25 History release sertraline 100 mg tablet 150 mg PO Q24H 08/02/24 03/27/25 History trazodone 150 mg tablet 150 mg PO HS 08/02/24 03/27/25 History folic acid 1 mg tablet 1 mg PO DAILY 03/27/25 03/27/25 History gabapentin 100 mg capsule 100 mg PO BID 03/27/25 03/27/25 History spironolactone 25 mg tablet 25 mg PO DAILY 03/27/25 03/27/25 History Allergies Allergy/AdvReac Type Severity Reaction Status Date / Time Penicillins Allergy Intermediate Rash Verified 03/27/25 00:25 Sulfa (Sulfonamide Allergy Intermediate Rash Verified 03/27/25 00:25 Antibiotics) Vital Signs Vital Signs - 24 hr 03/28/25 20:00 03/28/25 20:15 03/28/25 20:17 Temperature Pulse Rate 69 72 72 Respiratory Rate 20 20 Blood Pressure Pulse Oximetry 90 Oxygen Delivery Room Air Fraction of Inspired Oxygen 21 03/28/25 20:24 03/28/25 20:53 03/28/25 22:04 Temperature 36.3 C L Pulse Rate 75 72 72 Respiratory Rate 20 18 Blood Pressure 127/69 Pulse Oximetry 96 Oxygen Delivery Fraction of Inspired Oxygen 03/29/25 00:00 03/29/25 00:00 03/29/25 01:10 Temperature 36.3 C L Pulse Rate 72 71 64 Respiratory Rate 18 20 Blood Pressure 127/69 Pulse Oximetry 96 Oxygen Delivery Fraction of Inspired Oxygen 03/29/25 01:20 03/29/25 04:00 03/29/25 04:19 Temperature 36.2 C L Pulse Rate 66 61 62 Respiratory Rate 20 16 Blood Pressure 112/65 Pulse Oximetry 94 Oxygen Delivery Fraction of Inspired Oxygen 03/29/25 07:20 03/29/25 07:20 03/29/25 07:28 Temperature Pulse Rate 66 62 Respiratory Rate 16 16 Blood Pressure Pulse Oximetry 92 Oxygen Delivery Room Air Fraction of Inspired Oxygen 03/29/25 08:00 03/29/25 09:30 03/29/25 09:35 Temperature Pulse Rate 58 L 70 Respiratory Rate Blood Pressure Pulse Oximetry Oxygen Delivery Room Air Fraction of Inspired Oxygen 03/29/25 12:00 03/29/25 13:51 03/29/25 13:58 Temperature Pulse Rate 71 62 61 Respiratory Rate 16 16 Blood Pressure Pulse Oximetry Oxygen Delivery Fraction of Inspired Oxygen 03/29/25 14:00 03/29/25 16:00 Temperature 36.1 C L Pulse Rate 67 71 Respiratory Rate 16 Blood Pressure 127/71 Pulse Oximetry 95 Oxygen Delivery Fraction of Inspired Oxygen Exam Narrative: Lungs are clear to auscultation bilaterally Cardiovascular regular rate rhythm no murmurs Abdomen soft nontender nondistended Extremities no edema Results Labs 03/29/25 06:25 03/29/25 06:25 Labs: Short CBC 03/29/25 Range/Units 06:25 WBC 1.7 L* (4.5-10.0) K/mm3 Hgb 7.1 L (12.0-15.0) g/dL Hct 21.7 L (37.0-47.0) % Plt Count 50 L (150-375) k/mm3 [facility] 03/29/25 06:25 Sodium 133 L Potassium 4.3 Chloride 108 H Carbon Dioxide 21 L BUN 24 H Creatinine 0.96 Glucose 83 Calcium 7.6 L Liver Function 03/29/25 Range/Units 06:25 Total Bilirubin 0.2 (0.2-1.3) mg/dL AST 18 (14-36) U/L ALT 12 (6-35) U/L Alkaline Phosphatase 66 (38-126) U/L Albumin 2.2 L (3.5-5.1) g/dL
[2025-03-29] MEDS: cefTRIAXone 1 GM in SODIUM CHLORIDE 0.9% IV 50 ML 100 ML IVPB (22:25)
[2025-03-29] MEDS: AZITHROMYCIN 500 MG TABLET PO (22:31)
[2025-03-30] VITALS (15 sets, daily range): BP systolic 119–147; BP diastolic 65–93; PULSE 62–73; RESP 16–20; TEMP 35.7–36.8; O2SAT 92–97
[2025-03-30] MEDS: ALBUMIN HUMAN 25% 25 GM/100 ML 100 ML IVPB ×2 (00:55→05:28)
[2025-03-30] MEDS: IPRATROPIUM 0.5 MG/ALBUTEROL SULFATE 2.5 MG (BASE) AMPUL.NEB 3 ML INHALATION ×3 (02:20→19:48)
[2025-03-30] MEDS: METOCLOPRAMIDE HCL 10 MG TABLET PO ×4 (05:29→20:18)
[2025-03-30 06:36] LABS: Immature Platelet Fraction Pct 1.4 % (0.9-11.2); Mean Corpuscular HGB Conc 31.9 g/dl (32-36); Mean Corpuscular Hemoglobin 28.0 pg (26-34); Mean Corpuscular Volume 87.9 fl (80-100); Platelet Count Result 46 k/mm3 (150-375); Red Blood Count 2.32 M/mm3 (4.2-5.4)
[2025-03-30 06:57] LABS: Alanine Aminotransferase 10 U/L (6-35); Albumin Level 2.8 g/dL (3.5-5.1); Alkaline Phosphatase 57 U/L (38-126); Anion Gap 3 mmol/L (4-12); Aspartate Amino Transferase 15 U/L (14-36); Bilirubin,Total 0.4 mg/dL (0.2-1.3); Blood Urea Nitrogen 23 mg/dL (7-17); Calcium 7.9 mg/dL (8.4-10.2); Carbon Dioxide 23 mmol/L (22-30); Chloride 107 mmol/L (98-107); Estimated CRCL calculation 38 ml/min; Estimated Glomerular Filt Rate 57; Glucose 89 mg/dL (65-110); Magnesium 1.6 mg/dL (1.6-2.3); Potassium 3.9 mmol/L (3.4-5.0); Sodium 133 mmol/L (137-145); Total Protein 5.2 g/dL (6.3-8.2)
[2025-03-30 07:40] LABS: Hemoglobin 6.5 g/dL (12.0-15.0); White Blood Count 1.6 K/mm3 (4.5-10.0)
[2025-03-30 07:41] LABS: Hematocrit 20.4 % (37.0-47.0)
[2025-03-30 07:47] LABS: Band Neutrophils Percent 0 % (0-6); Neutrophils Absolute Manual 1.36 K/mm3 (1.3-6.7); Neutrophils Percent Manual 85 % (46-73); Total Cells Counted 100
[2025-03-30 07:48] LABS: Eosinophils Absolute Manual 0.01 K/mm3 (0.02-0.50); Eosinophils Percent Manual 1 % (0-4); Lymphocytes Absolute Manual 0.19 K/mm3 (1.1-4.5); Lymphocytes Percent Manual 12 % (18-44); Monocytes Absolute Manual 0.01 K/mm3 (0.1-0.90); Monocytes Percent Manual 1 % (3-9)
[2025-03-30 07:49] LABS: Ovalocytes 1+
[2025-03-30 07:50] LABS: Anisocytosis 1+; Helmet Cells Occasional
[2025-03-30 07:58] LABS: Basophilic Stippling Occasional; Hypochromasia Occasional; Schistocytes Rare
[2025-03-30] MEDS: GABAPENTIN 100 MG CAPSULE PO ×2 (09:26→17:00)
[2025-03-30] MEDS: SPIRONOLACTONE 25 MG TABLET PO (09:26)
[2025-03-30] MEDS: FOLIC ACID 1 MG TABLET PO (09:26)
[2025-03-30] MEDS: PANTOPRAZOLE 40 MG TABLET PO ×2 (09:26→20:10)
[2025-03-30] MEDS: SERTRALINE HCL 50 MG TABLET 150 MG PO (09:26)
[2025-03-30] MEDS: SODIUM CHLORIDE 0.9% IV 250 ML 30 ML IV CONT (09:27)
[2025-03-30] MEDS: FUROSEMIDE INJ 40 MG/4 ML VIAL IV PUSH ×2 (11:11→17:01)
--- NOTE | 2025-03-30 14:57 | P.PNIM_ITS ---
Assessment and Plan Assessment and Plan (1) Acute hypoxic respiratory failure: Code(s): J96.01 - Acute respiratory failure with hypoxia Status: Acute Assessment and Plan: chest x-ray with possible right lower lobe pneumonia however later was read as pleural effusion. After CTA most likely etiology is CHF exacerbation. No PE or DVT * completed antibiotics for PNA and improved with IV diuresis * Weaned oxygen to RA (2) Pneumonia: Code(s): J18.9 - Pneumonia, unspecified organism Status: Acute Assessment and Plan: * Completed IV ceftriaxone and azithromycin x5 days * Bronchodilators. * incentive spirometry while awake. * supplemental oxygen therapy to maintain oxygen 92% (3) Pancytopenia: Code(s): D61.818 - Other pancytopenia Status: Acute Assessment and Plan: Follows outpatient with Dr. Gordon but worsening * Hem/oc consulted * bone marrow biopsy 03/30/2025 * then follow outpatient (4) Hypertension: Code(s): I10 - Essential (primary) hypertension Status: Acute Assessment and Plan: * Continue carvidilol * D/C amlodipine due to bilateral lower extremity edema * Monitor BP per unit protocol (5) Hyperlipidemia: Code(s): E78.5 - Hyperlipidemia, unspecified Status: Acute Assessment and Plan: * Continued atorvastatin (6) GERD (gastroesophageal reflux disease): Code(s): K21.9 - Gastro-esophageal reflux disease without esophagitis Status: Acute Assessment and Plan: * Continue pantoprazole (7) Hypoalbuminemia: Code(s): E88.09 - Other disorders of plasma-protein metabolism, not elsewhere classified Status: Acute Assessment and Plan: * IV albumin 4 back received * Trend and replenish as needed * Add protein supplements (8) Anemia: Code(s): D64.9 - Anemia, unspecified Status: Acute Assessment and Plan: Patient with history of anemia follows with Hematology outpatient Hgb slowly trending down * Hemoglobin dropped to 6.5 today * Transfuse 1 unit PRBCs * Q.6 H and H * Transfuse hemoglobin less than 7.0 * Occult stool pending (9) Severe protein-calorie malnutrition (Flanagan: less than 60% of standard weight): Code(s): E43 - Unspecified severe protein-calorie malnutrition Status: Acute Assessment and Plan: * Had supplemental shakes each meal * Dietary consulted (10) Systolic and diastolic CHF w/reduced LV function, NYHA class 4: Code(s): I50.40 - Unspecified combined systolic (congestive) and diastolic (congestive) heart failure Status: Acute Assessment and Plan: Patient with acute combined systolic and diastolic heart failure with reduced ejection fraction echocardiogram with estimated 40-45% LVEF the inferior wall is inferior septal and akinetic left atrium severely dilated. CXR showing large right and small left pleural effusions * IV Lasix 40 mg b.i.d. * Incentive spirometer while awake * Continued carvedilol * Continue spironolactone * D/C amlodipine due to bilateral lower extremity edema * Started on low dose losartan Plan Code status: ?DNR DVT prophylaxis: ?Lovenox on hold/SCD Stress ulcer prophylaxis: ?Protonix 40 daily home medication PT/OT notes: ?SNF Disposition: ?Patient continues admission to the medical unit for further evaluation and treatment acute respiratory failure with hypoxia weaned off oxygen secondary to pneumonia and CHF exacerbation currently now with pancytopenia and need for bone marrow biopsy. Patient also having anemia and transfusing PRBCs need to rule out any acute GIB. Discharge plan will be back to [facility] facility when medically stable Medical Record Review I have reviewed the following patient records and this information was taken into consideration when formulating the assessment and plan.: previous labs, previous ER visits and previous hospitalizations Time Spent With Patient Time with patient: 25 - 35 minutes Subjective Date/time seen: 03/30/25 14:57 Interval history: Patient is 80-year-old female who was admitted to the hospital for acute res piratory failure secondary to pneumonia requiring oxygen at time of admission as well as acute on chronic CHF exacerbation. Patient was found to have sepsis secondary to pneumonia and UTI. 03/30/2025: Patient resting comfortably in bed reports her shortness of breath has improved and she is currently off supplemental oxygen but did report she has some shortness a breath with activity. Patient's hemoglobin did drop to 6.5 today transfuse 1 unit p.o. varices currently waiting on bone marrow biopsy. Review of Systems Review of Systems: All systems reviewed & are unremarkable except as noted in HPI and below Exam Narrative: GENERAL: Chronically Ill-appearing, not in acute distress HEAD: [Normocephalic, atraumatic.] EYES: [PERRLA and EOMI.] ENT: Nares clear NECK: Supple. Lungs: Clear to auscultation HEART: RRR ABDOMEN: [Soft, nondistended], [nontender] EXTREMITIES: Normal range of motion. Dependent edema noted lower extremity pitting 2+ SKIN: Warm, dry, no rash. Deep tissue resume NEURO: Generalized weakness, slow to respond but responds appropriately PSYCH: flat affect Objective Data Vital Signs Vital Signs: Vital Signs - 24 hr 03/29/25 16:00 03/29/25 20:00 03/29/25 21:16 Temperature Pulse Rate 71 66 75 Respiratory Rate 14 Blood Pressure Pulse Oximetry 96 Oxygen Delivery Room Air Fraction of Inspired Oxygen 21 03/29/25 21:16 03/29/25 21:23 03/29/25 22:00 Temperature 98.5 F Pulse Rate 75 77 75 Respiratory Rate 14 20 Blood Pressure 152/99 H Pulse Oximetry 95 Oxygen Delivery Fraction of Inspired Oxygen 03/29/25 22:30 03/30/25 06:00 03/30/25 11:38 Temperature 97.7 F 96.3 F L Pulse Rate 71 70 65 Respiratory Rate 20 18 Blood Pressure 147/81 H 119/65 Pulse Oximetry 92 95 Oxygen Delivery Fraction of Inspired Oxygen 03/30/25 11:54 03/30/25 12:54 03/30/25 13:49 Temperature 96.3 F L 96.3 F L 98.2 F Pulse Rate 72 69 73 Respiratory Rate 18 18 16 Blood Pressure 128/74 120/74 133/93 H Pulse Oximetry 97 96 97 Oxygen Delivery Fraction of Inspired Oxygen 03/30/25 13:59 03/30/25 14:04 Temperature Pulse Rate 67 70 Respiratory Rate Blood Pressure Pulse Oximetry Oxygen Delivery Fraction of Inspired Oxygen Intake/Output Intake/Output: Intake & Output 03/27/25 03/28/25 03/29/25 03/30/25 23:59 23:59 23:59 23:59 Intake Total 1700 1120 560 858 Output Total 0 Balance 1700 1120 560 858 Meds/Results Medications: Active Medications Generic Name Dose Route Start Last Admin Trade Name Freq PRN Reason Stop Dose Admin Acetaminophen 650 mg 03/26/25 22:21 03/28/25 22:07 Acetaminophen 325 Mg Tablet PO 650 mg Q4H PRN Administration Mild Pain (1-3) or Fever Albuterol/Ipratropium 3 ml 03/27/25 02:00 03/30/25 13:59 Ipratropium 0.5 Mg/Albuterol Sulfate 2.5 Mg (Base) Ampul.Neb 3 Ml INHALATION 3 ml Q6HRT STEVE Administration Amlodipine Besylate 2.5 mg 03/28/25 09:00 03/30/25 09:27 Amlodipine Besylate 2.5 Mg Tablet PO 2.5 mg DAILY STEVE Administration Atorvastatin Calcium 40 mg 03/27/25 18:00 03/28/25 17:07 Atorvastatin 40 Mg Tablet PO 40 mg QPM STEVE Administration Azithromycin 500 mg 03/28/25 21:00 03/29/25 22:31 Azithromycin 500 Mg Tablet PO 03/30/25 21:01 500 mg DAILY@2100 STEVE Administration Carvedilol 12.5 mg 03/27/25 21:00 03/30/25 09:27 Carvedilol 12.5 Mg Tablet PO 12.5 mg Q12HR STEVE Administration Enoxaparin Sodium 40 mg 03/27/25 09:00 Enoxaparin 40 Mg/0.4 Ml Syringe SUB-Q On Hold: 03/27/25 09:00 DAILY STEVE Folic Acid 1 mg 03/28/25 09:00 03/30/25 09:26 Folic Acid 1 Mg Tablet PO 1 mg DAILY STEVE Administration Furosemide 40 mg 03/27/25 09:00 03/30/25 11:11 Furosemide Inj 40 Mg/4 Ml Vial IV PUSH 40 mg BID STEVE Administration Gabapentin 100 mg 03/27/25 17:00 03/30/25 09:26 Gabapentin 100 Mg Capsule PO 100 mg BID STEVE Administration Ceftriaxone Sodium 1 gm/ 50 mls @ 100 mls/hr 03/27/25 21:00 03/29/25 22:25 Sodium Chloride IVPB 03/30/25 21:29 100 mls/hr Q24H STEVE Administration Sodium Chloride 250 mls @ 30 mls/hr 03/30/25 07:52 03/30/25 09:27 Normal Saline Iv IV CONT 03/30/25 16:11 30 mls/hr .Q8H20M STA Administration Metoclopramide HCl 10 mg 03/27/25 16:30 03/30/25 11:10 Metoclopramide Hcl 10 Mg Tablet PO 10 mg ACHS STEVE Administration Neomycin/Polymyxin/Bacitracin 1 applic 03/29/25 18:43 Neomycin/Polymyxin/Bacitracin Ointment 15 Gm Tube TOPICAL PRN PRN with dressing changes Ondansetron HCl 4 mg 03/26/25 22:21 Ondansetron Inj 4 Mg/2 Ml Vial IV PUSH Q6H PRN Nausea And Vomiting Pantoprazole Sodium 40 mg 03/27/25 21:00 03/30/25 09:26 Pantoprazole 40 Mg Tablet PO 40 mg Q12HR STEVE Administration Sertraline HCl 150 mg 03/28/25 09:00 03/30/25 09:26 Sertraline Hcl 50 Mg Tablet PO 150 mg QAM STEVE Administration Spironolactone 25 mg 03/28/25 09:00 03/30/25 09:26 Spironolactone 25 Mg Tablet PO 25 mg DAILY STEVE Administration Trazodone HCl 150 mg 03/27/25 21:00 03/29/25 22:31 Trazodone Hcl 50 Mg Tablet PO 150 mg HS STEVE Administration Radiology Results: ITS Impressions Chest CTA 03/27/25 06:53 IMPRESSION: 1. No pulmonary embolus. 2. Mild pulmonary edema. 3. Moderate-sized right and small left pleural effusions. 4. Age-indeterminate T12 burst fracture. Venous Doppler Study 03/27/25 11:26 IMPRESSION: 1. No deep venous thrombosis seen with limitations noted above. 2. Probable inguinal hernia with herniated intestine in the right groin. 3. 9 mm reactive appearing lymph node in the left groin region. Extensive edema present; correlate clinically for evidence of inflammatory/infectious process such as cellulitis. Chest X-Ray 03/29/25 13:18 IMPRESSION: 1. Suspect increasing bilateral effusions right worse than left. Labs Labs: Laboratory Results - last 24 hr 03/30/25 03/30/25 06:19 08:14 WBC 1.6 L* RBC 2.32 L Hgb 6.5 L* Hct 20.4 L* MCV 87.9 MCH 28.0 MCHC 31.9 L RDW 16.4 H Plt Count 46 L MPV 9.5 Immature Gran % (Auto) Not Reportable Neut % (Auto) Not Reportable Lymph % (Auto) Not Reportable [place] % (Auto) Not Reportable Eos % (Auto) Not Reportable Baso % (Auto) Not Reportable Lymph # (Auto) Not Reportable [place] # (Auto) Not Reportable Eos # (Auto) Not Reportable Baso # (Auto) Not Reportable Abs Immat Gran (auto) Not Reportable Absolute Neuts (auto) Not Reportable Absolute Nucleated RBC Not Reportable Total Counted 100 Neutrophils % (Manual) 85 H Band Neutrophils % 0 Lymphocytes % (Manual) 12 L Monocytes % (Manual) 1 L Eosinophils % (Manual) 1 Nucleated RBC % Not Reportable Abs Neuts (Manual) 1.36 Abs Lymphs (Manual) 0.19 L Abs Monocytes (Manual) 0.01 L Absolute Eos (Manual) 0.01 L Platelet Estimate Decreased % Immature Plt Fraction 1.4 Hypochromasia Occasional Basophilic Stippling Occasional Anisocytosis 1+ Ovalocytes 1+ Helmet Cells Occasional Schistocytes Rare Sodium 133 L Potassium 3.9 Chloride 107 Carbon Dioxide 23 Anion Gap 3 L BUN 23 H Creatinine 0.94 Estim Creat Clear Calc 38 Estimated GFR 57 L Glucose 89 Calcium 7.9 L Magnesium 1.6 Total Bilirubin 0.4 AST 15 ALT 10 Alkaline Phosphatase 57 Total Protein 5.2 L Albumin 2.8 L Blood Type A Negative Antibody Screen Negative Crossmatch See Detail Attestation: I personally reviewed all lab results Quality VTE Prophylaxis VTE prophylaxis: mechanical ordered - Patient's previous records reviewed on admission -ER notes reviewed in detail on admission -discussed all findings and current treatment plan with patient/Family/POA -Consultations reviewed for recommendations -Patient's disposition for safe discharge discussed with child support case officer -radiology imaging, EKG and test results I have personally reviewed and interpreted unless otherwise specified Dictation performed by [employer] direct speech recognition software, therefore service porter variants and typographical errors may occur. Hospitalist MIPS Advance Care Plan I have confirmed that the patient's Advanced Care Plan is present, code status is documented, or surrogate decision maker is listed in patient medical record.: Yes Medication Reconciliation I have utilized all available resources to obtain, update and review the patients current medications (includes all prescriptions, OTC, herbals, cannabis, and nutritional supplements).: Yes The patient is not eligible for med reconciliation; the patient is in a emergent medical situation where delaying treatment would jeopardize the patients health.: No
[2025-03-30] MEDS: ATORVASTATIN 40 MG TABLET PO ×2 (17:00→17:01)
[2025-03-30 17:01] LABS: Hematocrit 27.0 % (37.0-47.0); Hemoglobin 8.9 g/dL (12.0-15.0)
[2025-03-30] MEDS: cefTRIAXone 1 GM in SODIUM CHLORIDE 0.9% IV 50 ML 100 ML IVPB (20:13)
[2025-03-30] MEDS: AZITHROMYCIN 500 MG TABLET PO (20:14)
[2025-03-31] VITALS (17 sets, daily range): BP systolic 122–155; BP diastolic 70–80; PULSE 63–84; RESP 16–20; TEMP 36.6–36.9; O2SAT 93–97; BMI 26.8
[2025-03-31] MEDS: IPRATROPIUM 0.5 MG/ALBUTEROL SULFATE 2.5 MG (BASE) AMPUL.NEB 3 ML INHALATION ×4 (01:38→19:57)
[2025-03-31] MEDS: METOCLOPRAMIDE HCL 10 MG TABLET PO ×4 (05:27→20:34)
[2025-03-31 05:51] LABS: IFOB Positive Control Positive; Immunochemical Fecal Occult Bl Negative (N)
[2025-03-31 06:19] LABS: Hematocrit 26.7 % (37.0-47.0); Hemoglobin 8.7 g/dL (12.0-15.0); Immature Platelet Fraction Pct 1.5 % (0.9-11.2); Mean Corpuscular HGB Conc 32.6 g/dl (32-36); Mean Corpuscular Hemoglobin 29.0 pg (26-34); Mean Corpuscular Volume 89.0 fl (80-100); Platelet Count Result 53 k/mm3 (150-375); Red Blood Count 3.00 M/mm3 (4.2-5.4); White Blood Count 2.6 K/mm3 (4.5-10.0)
[2025-03-31 06:41] LABS: Alanine Aminotransferase 12 U/L (6-35); Albumin Level 2.7 g/dL (3.5-5.1); Alkaline Phosphatase 56 U/L (38-126); Anion Gap 6 mmol/L (4-12); Aspartate Amino Transferase 22 U/L (14-36); Bilirubin,Total 0.5 mg/dL (0.2-1.3); Blood Urea Nitrogen 25 mg/dL (7-17); Calcium 7.9 mg/dL (8.4-10.2); Carbon Dioxide 22 mmol/L (22-30); Chloride 106 mmol/L (98-107); Estimated CRCL calculation 40 ml/min; Estimated Glomerular Filt Rate > 60; Glucose 85 mg/dL (65-110); Magnesium 1.6 mg/dL (1.6-2.3); Potassium 4.0 mmol/L (3.4-5.0); Sodium 134 mmol/L (137-145); Total Protein 5.3 g/dL (6.3-8.2)
--- NOTE | 2025-03-31 08:59 | P.PNIM_ITS ---
Assessment and Plan Assessment and Plan (1) Acute hypoxic respiratory failure: Code(s): J96.01 - Acute respiratory failure with hypoxia Status: Acute Assessment and Plan: chest x-ray with possible right lower lobe pneumonia however later was read as pleural effusion. After CTA most likely etiology is CHF exacerbation. No PE or DVT * completed antibiotics for PNA and improved with IV diuresis * Weaned oxygen to RA (2) Pneumonia: Code(s): J18.9 - Pneumonia, unspecified organism Status: Acute Assessment and Plan: * Completed IV ceftriaxone and azithromycin x5 days * Bronchodilators. * incentive spirometry while awake. * supplemental oxygen therapy to maintain oxygen 92% (3) Pancytopenia: Code(s): D61.818 - Other pancytopenia Status: Acute Assessment and Plan: Follows outpatient with Dr. Gordon but worsening * Hem/oc consulted * bone marrow biopsy 03/31/2025 pending * then follow outpatient (4) Hypertension: Code(s): I10 - Essential (primary) hypertension Status: Acute Assessment and Plan: * Continue carvidilol * D/C amlodipine due to bilateral lower extremity edema * Monitor BP per unit protocol (5) Hyperlipidemia: Code(s): E78.5 - Hyperlipidemia, unspecified Status: Acute Assessment and Plan: * Continued atorvastatin (6) GERD (gastroesophageal reflux disease): Code(s): K21.9 - Gastro-esophageal reflux disease without esophagitis Status: Acute Assessment and Plan: * Continue pantoprazole (7) Hypoalbuminemia: Code(s): E88.09 - Other disorders of plasma-protein metabolism, not elsewhere classified Status: Acute Assessment and Plan: * IV albumin 4 back received * Trend and replenish as needed * Add protein supplements (8) Anemia: Code(s): D64.9 - Anemia, unspecified Status: Acute Assessment and Plan: Patient with history of anemia follows with Hematology outpatient Hgb slowly trending down * Hemoglobin dropped to 6.5 today * Transfuse 1 unit PRBCs * Q.6 H and H * Transfuse hemoglobin less than 7.0 * Occult stool negative (9) Severe protein-calorie malnutrition (Flanagan: less than 60% of standard weight): Code(s): E43 - Unspecified severe protein-calorie malnutrition Status: Acute Assessment and Plan: * added supplemental shakes each meal * Dietary consulted (10) Systolic and diastolic CHF w/reduced LV function, NYHA class 4: Code(s): I50.40 - Unspecified combined systolic (congestive) and diastolic (congestive) heart failure Status: Acute Assessment and Plan: Patient with acute combined systolic and diastolic heart failure with reduced ejection fraction echocardiogram with estimated 40-45% LVEF the inferior wall is inferior septal and akinetic left atrium severely dilated. CXR showing large right and small left pleural effusions * IV Lasix 40 mg b.i.d. * Incentive spirometer while awake * Continued carvedilol * Continue spironolactone * D/C amlodipine due to bilateral lower extremity edema * Started on low dose losartan Plan Code status: ?DNR DVT prophylaxis: ?Lovenox on hold/SCD Stress ulcer prophylaxis: ?Protonix 40 daily home medication PT/OT notes: ?SNF Disposition: ?Patient continues admission to the medical unit for further evaluation and treatment acute respiratory failure with hypoxia weaned off oxygen secondary to pneumonia and CHF exacerbation currently now with pancytopenia and need for bone marrow biopsy. Patient also having anemia and transfusing PRBCs ruled out any acute GIB. [facility] when medically stable Medical Record Review I have reviewed the following patient records and this information was taken into consideration when formulating the assessment and plan.: previous labs, previous ER visits and previous hospitalizations Time Spent With Patient Time with patient: 15 - 25 minutes Subjective Date/time seen: 03/31/25 08:59 Interval history: Patient is 80-year-old female who was admitted to the hospital for acute respiratory failure secondary to pneumonia requiring oxygen at time of admission as well as acute on chronic CHF exacerbation. Patient was found to have sepsis secondary to pneumonia and UTI. 03/31/2025: Patient comfortable with no complaints. Hgb stable today and occult negative. She remains on RA and has been using her incentive spirometer. Still waiting on bone marrow biopsy can likely discharge after completed. Review of Systems Review of Systems: All systems reviewed & are unremarkable except as noted in HPI and below Exam Narrative: GENERAL: Chronically Ill-appearing, not in acute distress HEAD: [Normocephalic, atraumatic.] EYES: [PERRLA and EOMI.] ENT: Nares clear NECK: Supple. Lungs: Clear to auscultation HEART: RRR ABDOMEN: [Soft, nondistended], [nontender] EXTREMITIES: Normal range of motion. Dependent edema noted lower extremity pitting 2+ SKIN: Warm, dry, no rash. Deep tissue resume NEURO: Generalized weakness, slow to respond but responds appropriately PSYCH: flat affect Objective Data Vital Signs Vital Signs: Vital Signs - 24 hr 03/30/25 11:38 03/30/25 11:54 03/30/25 12:00 Temperature 96.3 F L 96.3 F L Pulse Rate 65 72 64 Respiratory Rate 18 18 Blood Pressure 119/65 128/74 Pulse Oximetry 95 97 Oxygen Delivery Fraction of Inspired Oxygen 03/30/25 12:54 03/30/25 13:49 03/30/25 13:54 Temperature 96.3 F L 98.2 F 96.3 F L Pulse Rate 69 73 65 Respiratory Rate 18 16 18 Blood Pressure 120/74 133/93 H 135/77 Pulse Oximetry 96 97 97 Oxygen Delivery Fraction of Inspired Oxygen 03/30/25 13:59 03/30/25 14:04 03/30/25 16:00 Temperature Pulse Rate 67 70 67 Respiratory Rate Blood Pressure Pulse Oximetry Oxygen Delivery Fraction of Inspired Oxygen 03/30/25 19:48 03/30/25 19:48 03/30/25 19:53 Temperature Pulse Rate 72 70 Respiratory Rate 16 16 Blood Pressure Pulse Oximetry 94 Oxygen Delivery Room Air Fraction of Inspired Oxygen 03/30/25 20:00 03/30/25 20:00 03/30/25 21:58 Temperature 97.6 F Pulse Rate 69 73 Respiratory Rate 18 Blood Pressure 142/76 H Pulse Oximetry 96 Oxygen Delivery Room Air Fraction of Inspired Oxygen 21 03/31/25 00:00 03/31/25 01:38 03/31/25 01:45 Temperature Pulse Rate 70 64 68 Respiratory Rate Blood Pressure Pulse Oximetry Oxygen Delivery Fraction of Inspired Oxygen 03/31/25 04:00 03/31/25 05:51 Temperature 97.9 F Pulse Rate 63 78 Respiratory Rate 16 Blood Pressure 155/80 H Pulse Oximetry 95 Oxygen Delivery Fraction of Inspired Oxygen Intake/Output Intake/Output: Intake & Output 03/28/25 03/29/25 03/30/25 03/31/25 23:59 23:59 23:59 23:59 Intake Total 7761 887 4302 50 Output Total 600 900 Balance 4065 768 4816 -850 Meds/Results Medications: Active Medications Generic Name Dose Route Start Last Admin Trade Name Freq PRN Reason Stop Dose Admin Acetaminophen 650 mg 03/26/25 22:21 03/28/25 22:07 Acetaminophen 325 Mg Tablet PO 650 mg Q4H PRN Administration Mild Pain (1-3) or Fever Albuterol/Ipratropium 3 ml 03/27/25 02:00 03/31/25 01:38 Ipratropium 0.5 Mg/Albuterol Sulfate 2.5 Mg (Base) Ampul.Neb 3 Ml INHALATION 3 ml Q6HRT STEVE Administration Atorvastatin Calcium 40 mg 03/27/25 18:00 03/30/25 17:01 Atorvastatin 40 Mg Tablet PO 40 mg QPM STEVE Administration Carvedilol 12.5 mg 03/27/25 21:00 03/30/25 20:13 Carvedilol 12.5 Mg Tablet PO 12.5 mg Q12HR STEVE Administration Enoxaparin Sodium 40 mg 03/27/25 09:00 Enoxaparin 40 Mg/0.4 Ml Syringe SUB-Q On Hold: 03/27/25 09:00 DAILY STEVE Folic Acid 1 mg 03/28/25 09:00 03/30/25 09:26 Folic Acid 1 Mg Tablet PO 1 mg DAILY STEVE Administration Furosemide 40 mg 03/27/25 09:00 03/30/25 17:01 Furosemide Inj 40 Mg/4 Ml Vial IV PUSH 40 mg BID STEVE Administration Gabapentin 100 mg 03/27/25 17:00 03/30/25 17:00 Gabapentin 100 Mg Capsule PO 100 mg BID STEVE Administration Losartan Potassium 25 mg 03/31/25 09:00 Losartan Potassium 25 Mg Tablet PO DAILY STEVE Metoclopramide HCl 10 mg 03/27/25 16:30 03/31/25 05:27 Metoclopramide Hcl 10 Mg Tablet PO 10 mg ACHS STEVE Administration Neomycin/Polymyxin/Bacitracin 1 applic 03/29/25 18:43 Neomycin/Polymyxin/Bacitracin Ointment 15 Gm Tube TOPICAL PRN PRN with dressing changes Ondansetron HCl 4 mg 03/26/25 22:21 Ondansetron Inj 4 Mg/2 Ml Vial IV PUSH Q6H PRN Nausea And Vomiting Pantoprazole Sodium 40 mg 03/27/25 21:00 03/30/25 20:10 Pantoprazole 40 Mg Tablet PO 40 mg Q12HR STEVE Administration Sertraline HCl 150 mg 03/28/25 09:00 03/30/25 09:26 Sertraline Hcl 50 Mg Tablet PO 150 mg QAM STEVE Administration Spironolactone 25 mg 03/28/25 09:00 03/30/25 09:26 Spironolactone 25 Mg Tablet PO 25 mg DAILY STEVE Administration Trazodone HCl 150 mg 03/27/25 21:00 03/30/25 20:10 Trazodone Hcl 50 Mg Tablet PO 150 mg HS STEVE Administration Radiology Results: ITS Impressions Chest CTA 03/27/25 06:53 IMPRESSION: 1. No pulmonary embolus. 2. Mild pulmonary edema. 3. Moderate-sized right and small left pleural effusions. 4. Age-indeterminate T12 burst fracture. Venous Doppler Study 03/27/25 11:26 IMPRESSION: 1. No deep venous thrombosis seen with limitations noted above. 2. Probable inguinal hernia with herniated intestine in the right groin. 3. 9 mm reactive appearing lymph node in the left groin region. Extensive edema present; correlate clinically for evidence of inflammatory/infectious process such as cellulitis. Chest X-Ray 03/29/25 13:18 IMPRESSION: 1. Suspect increasing bilateral effusions right worse than left. Labs Labs: Laboratory Results - last 24 hr 03/30/25 03/30/25 03/31/25 08:14 16:54 05:24 WBC RBC Hgb 8.9 L Hct 27.0 L MCV MCH MCHC RDW Plt Count MPV % Immature Plt Fraction Sodium Potassium Chloride Carbon Dioxide Anion Gap BUN Creatinine Estim Creat Clear Calc Estimated GFR Glucose Calcium Magnesium Total Bilirubin AST ALT Alkaline Phosphatase Total Protein Albumin Stl Occult Blood (IFOB) Negative Blood Type A Negative Antibody Screen Negative Crossmatch See Detail 03/31/25 06:05 WBC 2.6 L RBC 3.00 L Hgb 8.7 L Hct 26.7 L MCV 89.0 MCH 29.0 MCHC 32.6 RDW 16.1 H Plt Count 53 L MPV 10.1 % Immature Plt Fraction 1.5 Sodium 134 L Potassium 4.0 Chloride 106 Carbon Dioxide 22 Anion Gap 6 BUN 25 H Creatinine 0.89 Estim Creat Clear Calc 40 Estimated GFR > 60 Glucose 85 Calcium 7.9 L Magnesium 1.6 Total Bilirubin 0.5 AST 22 ALT 12 Alkaline Phosphatase 56 Total Protein 5.3 L Albumin 2.7 L Stl Occult Blood (IFOB) Blood Type Antibody Screen Crossmatch Attestation: I personally reviewed all lab results Quality VTE Prophylaxis VTE prophylaxis: mechanical ordered -Patient's previous records reviewed on admission -ER notes reviewed in detail on admission -discussed all findings and current treatment plan with patient/Family/POA -Consultations reviewed for recommendations -Patient's disposition for safe discharge discussed with case assistant -radiology imaging, EKG and test results I have personally reviewed and interpreted unless otherwise specified Dictation performed by [employer] direct speech recognition software, therefore valve mechanic variants and typographical errors may occur. Hospitalist MIPS Advance Care Plan I have confirmed that the patient's Advanced Care Plan is present, code status is documented, or surrogate decision maker is listed in patient medical record.: Yes Medication Reconciliation I have utilized all available resources to obtain, update and review the patients current medications (includes all prescriptions, OTC, herbals, cannabis, and nutritional supplements).: Yes The patient is not eligible for med reconciliation; the patient is in a emergent medical situation where delaying treatment would jeopardize the patients health.: No
[2025-03-31] MEDS: PANTOPRAZOLE 40 MG TABLET PO ×2 (09:36→20:34)
[2025-03-31] MEDS: FOLIC ACID 1 MG TABLET PO (09:36)
[2025-03-31] MEDS: SPIRONOLACTONE 25 MG TABLET PO (09:36)
[2025-03-31] MEDS: GABAPENTIN 100 MG CAPSULE PO ×2 (09:36→16:39)
[2025-03-31] MEDS: LOSARTAN POTASSIUM 25 MG TABLET PO (09:36)
[2025-03-31] MEDS: FUROSEMIDE INJ 40 MG/4 ML VIAL IV PUSH ×2 (09:37→16:39)
[2025-03-31] MEDS: SERTRALINE HCL 50 MG TABLET 150 MG PO (09:37)
[2025-03-31] MEDS: ATORVASTATIN 40 MG TABLET PO (16:39)
[2025-04-01] VITALS (15 sets, daily range): BP systolic 118–155; BP diastolic 70–84; PULSE 63–78; RESP 14–20; TEMP 36.1–36.3; O2SAT 95–97
[2025-04-01] MEDS: IPRATROPIUM 0.5 MG/ALBUTEROL SULFATE 2.5 MG (BASE) AMPUL.NEB 3 ML INHALATION ×3 (02:31→14:49)
[2025-04-01 05:43] LABS: Hematocrit 26.2 % (37.0-47.0); Hemoglobin 8.5 g/dL (12.0-15.0); Immature Platelet Fraction Pct 2.0 % (0.9-11.2); Mean Corpuscular HGB Conc 32.4 g/dl (32-36); Mean Corpuscular Hemoglobin 29.5 pg (26-34); Mean Corpuscular Volume 91.0 fl (80-100); Platelet Count Result 50 k/mm3 (150-375); Red Blood Count 2.88 M/mm3 (4.2-5.4)
[2025-04-01 05:50] LABS: White Blood Count 1.8 K/mm3 (4.5-10.0)
[2025-04-01] MEDS: METOCLOPRAMIDE HCL 10 MG TABLET PO ×2 (06:00→10:57)
[2025-04-01 06:15] LABS: Alanine Aminotransferase 11 U/L (6-35); Albumin Level 2.5 g/dL (3.5-5.1); Alkaline Phosphatase 50 U/L (38-126); Anion Gap 4 mmol/L (4-12); Aspartate Amino Transferase 18 U/L (14-36); Bilirubin,Total 0.4 mg/dL (0.2-1.3); Blood Urea Nitrogen 28 mg/dL (7-17); Calcium 7.5 mg/dL (8.4-10.2); Carbon Dioxide 24 mmol/L (22-30); Chloride 106 mmol/L (98-107); Estimated CRCL calculation 46 ml/min; Estimated Glomerular Filt Rate > 60; Glucose 86 mg/dL (65-110); Magnesium 1.5 mg/dL (1.6-2.3); Potassium 3.8 mmol/L (3.4-5.0); Sodium 134 mmol/L (137-145); Total Protein 5.1 g/dL (6.3-8.2)
[2025-04-01] MEDS: FOLIC ACID 1 MG TABLET PO (08:41)
[2025-04-01] MEDS: PANTOPRAZOLE 40 MG TABLET PO (08:41)
[2025-04-01] MEDS: GABAPENTIN 100 MG CAPSULE PO (08:41)
[2025-04-01] MEDS: FUROSEMIDE INJ 40 MG/4 ML VIAL IV PUSH (08:41)
[2025-04-01] MEDS: SERTRALINE HCL 50 MG TABLET 150 MG PO (08:41)
[2025-04-01] MEDS: LOSARTAN POTASSIUM 25 MG TABLET PO (08:41)
[2025-04-01] MEDS: SPIRONOLACTONE 25 MG TABLET PO (08:41)
--- NOTE | 2025-04-01 12:25 | P.DS_ITS ---
DS: Admitting Diagnosis Discharge Date 04/01/2025 Admitting Diagnosis Acute respiratory failure with hypoxia secondary to pneumonia CHF exacerbation, and pleural effusion and pleural effusion/pancytopenia/anemia DS: Discharge Diagnosis Discharge Diagnosis (1) Acute hypoxic respiratory failure: Code(s): J96.01 - Acute respiratory failure with hypoxia Status: Acute (2) Pneumonia: Code(s): J18.9 - Pneumonia, unspecified organism Status: Acute (3) Pancytopenia: Code(s): D61.818 - Other pancytopenia Status: Acute (4) Hypertension: Code(s): I10 - Essential (primary) hypertension Status: Acute (5) Hyperlipidemia: Code(s): E78.5 - Hyperlipidemia, unspecified Status: Acute (6) GERD (gastroesophageal reflux disease): Code(s): K21.9 - Gastro-esophageal reflux disease without esophagitis Status: Acute Assessment and Plan: * Continue pantoprazole (7) Hypoalbuminemia: Code(s): E88.09 - Other disorders of plasma-protein metabolism, not elsewhere classified Status: Acute (8) Anemia: Code(s): D64.9 - Anemia, unspecified Status: Acute (9) Severe protein-calorie malnutrition ([place]: less than 60% of standard weight): Code(s): E43 - Unspecified severe protein-calorie malnutrition Status: Acute (10) Systolic and diastolic CHF w/reduced LV function, NYHA class 4: Code(s): I50.40 - Unspecified combined systolic (congestive) and diastolic (congestive) heart failure Status: Acute DS: Summary Hospital Course Reason for hospitalization: Acute respiratory failure with hypoxia secondary to pneumonia CHF exacerbation, and pleural effusion and pleural effusion/pancytopenia/anemia Hospital Course: The patient was admitted from a assisted facility with acute hypoxic respiratory failure after being found hypoxic to 80% on room air. Initial chest imaging suggested right lower lobe pneumonia, and she was started on IV ceftriaxone and azithromycin. CTA chest later demonstrated pulmonary edema with moderate right and small left pleural effusions and no pulmonary embolism, shifting the primary etiology to an acute CHF exacerbation. She responded well to IV diuresis with furosemide and was weaned successfully to room air. Echocardiogram revealed mildly reduced LV systolic function with EF 40?45%, akinetic inferior and inferoseptal handy, severely dilated left atrium, and moderate tricuspid regurgitation. Guideline-directed medical therapy was optimized. Her hospital course was complicated by worsening pancytopenia and anemia, with hemoglobin lenore of 6.5 g/dL requiring transfusion of 1 unit PRBCs. Hematology was consulted, and a bone marrow biopsy was performed on 03/31/2025, with results pending at discharge. No evidence of active gastrointestinal bleeding was found. Nutritional status was notable for severe protein-calorie malnutrition and hypoa lbuminemia, treated with IV albumin and dietary supplementation. The patient remained hemodynamically stable and clinically improved at discharge. Discharge Condition Stable, breathing comfortably on room air, no acute complaints. Status at Discharge Functional status at discharge: wheelchair bound Overall status at discharge: patient is back to baseline Time Spent with Patient Time attestation: Total time spent providing and/or coordinating discharge services: Time spent: Greater than 30 minutes Exam Narrative: GENERAL: Chronically Ill-appearing, not in acute distress HEAD: [Normocephalic, atraumatic.] EYES: [PERRLA and EOMI.] ENT: Nares clear NECK: Supple. Lungs: Clear to auscultation HEART: RRR ABDOMEN: [Soft, nondistended], [nontender] EXTREMITIES: Normal range of motion. Dependent edema noted lower extremity pitting 2+ SKIN: Warm, dry, no rash. Deep tissue resume NEURO: Generalized weakness, slow to respond but responds appropriately PSYCH: flat affect DS: Data Data Completed and Pending Pending studies at discharge: Pending at discharge 03/29/25 18:48 Bone Marrow [PTH] Routine Labs on day of discharge: Labs from last 24 hours 04/01/25 05:27 WBC 1.8 L* RBC 2.88 L Hgb 8.5 L Hct 26.2 L MCV 91.0 MCH 29.5 MCHC 32.4 RDW 16.3 H Plt Count 50 L MPV TNP % Immature Plt Fraction 2.0 Sodium 134 L Potassium 3.8 Chloride 106 Carbon Dioxide 24 Anion Gap 4 BUN 28 H Creatinine 0.77 Estim Creat Clear Calc 46 Estimated GFR > 60 Glucose 86 Calcium 7.5 L Magnesium 1.5 L Total Bilirubin 0.4 AST 18 ALT 11 Alkaline Phosphatase 50 Total Protein 5.1 L Albumin 2.5 L Preliminary micro results at discharge 03/26/25 21:07 Blood Culture - Preliminary Blood 03/26/25 20:38 Blood Culture - Preliminary Blood Discharge Plan Discharge Attending physician on discharge: Bill Cao Consulting providers: Alberto Gordon; April Delgado; Galo Cox Rafe M.; Marco Denis; David Lawson; Amilcar Downey V. Discharging Clinician: April Delgado Anticipated Discharge Date/Time: 04/01/25 12:27 Patient Disposition: SNF Activity: as tolerated Diet: regular and low sodium Discharge Instructions: 1). Congestive heart failure/Pleural Effusion * Continue your oral Lasix and spironolactone * Continue your incentive spirometer while awake * recommend low sodium diet 2). Pancytopenia/anemia * Please contact Dr. Gordon office on Thursday04/03/2025, information provided below to schedule an outpatient bone Marrow biopsy How can you care for yourself at home? ? Keep track of any new symptoms or changes in your symptoms. ? Rest until you feel better. ? Be safe with medicines. Take your medicines exactly as prescribed. Call your doctor if you think you are having a problem with your medicine. ? Do not drive after taking a prescription pain medicine. ? Ensure to follow-up with primary care physician as indicated and provide updated medication list provided to you at discharge. When should you call for help? Call 911 anytime you think you may need emergency care. For example, call if: ? You passed out (lost consciousness). Call your doctor now or seek immediate medical care if: ? You have new symptoms like fever, difficulty breathing, Chest pain, vomiting, or rash. ? You have new or different pain. ? You are confused and are having trouble thinking clearly. ? Your symptoms are getting worse. Watch closely for changes in your health, and be sure to contact your doctor if: ? You do not get better as expected. Patient Instructions: Heart Failure (DC), Pleural Effusion (DC) Patient Language: Vietnamese Stand Alone Forms: General Discharge Information, [facility]cf Discharge Follow-up/Referrals: Alberto Gordon MD [Physician, Hematology] - 04/03/25 Referral Note: Call to schedule bone marrow biopsy Discharge Medications: New losartan 25 mg Tablet 25 mg PO DAILY Qty: 1 0RF furosemide [Lasix] 40 mg tablet 40 mg PO DAILY Qty: 1 0RF potassium chloride [Klor-Con 10] 10 mEq tablet extended release 10 meq PO DAILY Qty: 1 0RF Continued atorvastatin 40 mg tablet 40 mg PO QPM carvedilol 12.5 mg tablet 12.5 mg PO Q12H sertraline 100 mg tablet 150 mg PO Q24H pantoprazole 40 mg tablet,delayed release (DR/EC) 40 mg PO Q12H trazodone 150 mg tablet 150 mg PO HS folic acid 1 mg tablet 1 mg PO DAILY gabapentin 100 mg capsule 100 mg PO BID spironolactone 25 mg tablet 25 mg PO DAILY Discontinued amlodipine 10 mg tablet 2.5 mg PO DAILY Date of admission: 03/27/25 09:45 Primary Care Provider: ShenRoberto Admitting Provider: Umair Bob Attending physician on admission: Bill Cao Condition: Stable Quality VTE Prophylaxis VTE prophylaxis: mechanical ordered - Patient's previous records reviewed on admission -ER notes reviewed in detail on admission -discussed all findings and current treatment plan with patient/Family/POA -Consultations reviewed for recommendations -Patient's disposition for safe discharge discussed with case picker -radiology imaging, EKG and test results I have personally reviewed and interpreted unless otherwise specified Dictation performed by [employer] direct speech recognition software, therefore corporate giving manager variants and typographical errors may occur. Hospitalist MIPS Heart Failure (Exclusion) Patient has history of Heart Transplant or Left Ventricular Assistive Device?: No IF YES, STOP HERE Heart Failure (Qualifier) Patient has current or prior documentation of LVEF less than or equal to 40%, or mod/servere depressed LVSF?: No IF NO, STOP HERE
== END 2025-04-01 17:02 | DRG 291 ==
LOC: ANHED 19:58 → ANH3MEDSUR 22:35
PROVIDERS: Nurse Practitioner Family; Admitting Provider Internal Medicine; Emergency Provider Student in an Organized Health Care Education/Training Program; PCP Internal Medicine; Visit Provider Internal Medicine
DX: I11.0 Hypertensive heart disease with heart failure (principal); E43 Unspecified severe protein-calorie malnutrition; I50.43 Acute on chronic combined systolic (congestive) and diastolic (congestive) heart failure; J18.9 Pneumonia, unspecified organism; J96.01 Acute respiratory failure with hypoxia; N39.0 Urinary tract infection, site not specified; D61.818 Other pancytopenia; E88.09 Other disorders of plasma-protein metabolism, not elsewhere classified; E78.5 Hyperlipidemia, unspecified; K21.9 Gastro-esophageal reflux disease without esophagitis; Z20.822 Contact with and (suspected) exposure to COVID-19; Z87.891 Personal history of nicotine dependence; Z68.26 Body mass index [BMI] 26.0-26.9, adult
CPT/HCPCS: 36415; 36430; 71045; 71275; 80053; 81001; 82274; 83605; 83735; 83880; 84145; 85014; 85018; 85025; 85027; 85055; 85610; 85730; 86140; 86850; 86900; 86901; 86923; 87040; 87086; 87637; 93005; 93306; 93970; 94640; 96361; 96365; 96367; 96375; 97162; 97166; 97530; 97535; 99285; A9270; G0378; J0456; J0696; J1938; J3475; J7030; J7050; J7120; P9016; P9047; Q9967